=== PATIENT | female | born 1950 | race Caucasian/White ===

== ENCOUNTER 2018-04-10 07:47 | Outpatient (RCR) | payer MEDICARE, BC, SELFPAY ==
--- NOTE | 2018-04-10 09:51 | PTTR_ITS ---
DATE: 04/10/18 SUBJECTIVE: Radha is in good spirits today and states that she is feeling much better, minimally symptomatic now. She works out on a regular basis, being minimally fatigued at the end of the day.She is now doing her workouts at the end of the day, this gives her a second wind. She was helping her with some railings last week, and developed a blister on her (R) thumb. Stopped working after about 1/2 hour to 45 minutes due to fatigue. This was her only complaint. States that she has had minimal neck pain since her last visit and feels that her (L) shoulder is getting stronger. OBJECTIVE: Therapeutic procedures ([id number]). She came to rehab s/p spinal fusion and had some post op weakness with her supra /infraspinatus mechanism particularly her cervical movements. This is non irritable. Rotation of the (R) is close to 80- 85* on the (L) at 70-75*. Side bending is 45*-60* and non painful. AAROM in the supine position I can get close to 90* of rotation to the (R) and 80-85* on the (L) with some mild drawing throughout the (L) trap.Side bending is full. OA flexion is at 20*. Her shoulder movements are full and painless with movement. (R) thumb is at T8 level, and (L) thumb is 1 inch above. She has some weakness yet when loading the supraspinatus component of her (L) shoulder at +4 to - 5/5, and her infraspinatus is at 3/4 with her elbows tuck into her side. She can ER the (R) to a good 60* angle and the (L) 30-40*. This is also the same in the side lying position. She did not have pain when loading these two structures. Remaining musculature appears to be 5/5. Sensation is intact to light touch, and she has some mild increased tone throughout the cervical musculature on the (R) > (L) from PC 3-7. Direct treatment time: 20 minutes Total treatment time: 20minutes I hold off on her appt with Millicent Guerin PTA because she is minimally symptomatic. ASSESSMENT: Considerable improvement in Hanna symptoms compared to the beginning of PT. She is minimally symptomatic now and responding well to the dry needling last session. PLAN: Will have Radha continue with her HEP consisting of gentle stretching to cervical spine using a towel, and mulligan technique along with her strengthening exercises: not only for her shoulder girdle, but also for her core. She has a scheduled follow up appt in May and we will keep that just incase she should flare up between now and then. She can certainly give us a call if she is doing well at that point and cancel the appt.
== END 2018-05-09 23:59 | disposition home or self-care (01) ==
LOC: PT 07:47
PROVIDERS: PCP General Practice; Referring Provider Nurse Practitioner; Visit Provider Nurse Practitioner
DX: M54.12 Radiculopathy, cervical region (principal); M79.1 Myalgia; Z98.1 Arthrodesis status; M62.81 Muscle weakness (generalized)
CPT/HCPCS: 97110; 97140

== ENCOUNTER 2018-06-09 04:56 | Emergency (ER) | payer MEDICARE, BC, SELFPAY ==
[2018-06-09 04:59] VITALS: BP 142/84; PULSE 68; RESP 16; TEMP 36.4; O2SAT 98
[2018-06-09 05:11] LABS: Bilirubin Negative (Negative); Blood Trace-lysed (Negative); Clarity Sl Cloudy; Glucose Negative (Negative); Ketones Trace mg/dL (Negative); Leukocyte Esterase Negative (Negative); Nitrite Negative (Negative); Urobilinogen 0.2 EU/dL (Up TO 0.2); pH 5.5 (5-8)
[2018-06-09 05:17] LABS: Bacteria Rare HPF (Negative); C & S Indicated? No; Casts Negative LPF (Negative); Crystals Negative HPF (Negative); Epithelial Cells Many HPF (Negative); Mucus Negative (Negative); RBC 0-2 (0-2); WBC 0-2 HPF (0-5)
--- NOTE | 2018-06-09 05:30 | W.ED.GENAD ---
Discharge Plan Disposition Patient Disposition: HOME Condition: Improving Discharge Details Chief Complaint: FlankPain Clinical Impression: Abdominal pain, Lower back pain Primary Care Provider: Georges Valadez ED Provider: Savi Lema Home Meds and New Rx's Prescriptions: Continue pmugivsoxjmn-smjy-ynkvf acid [Daily Multiple] 1 EACH tablet 1 ea PO DAILY RF: 0 Discharge Instructions Instructions: Low Back Strain (ED), Abdominal Pain (ED) Additional Instructions: Alternate Tylenol and Motrin as needed and directed for pain. Apply heat to the affected area several times daily as needed. Follow-up with your primary care doctor in 1 week for reevaluation as needed. Return to the emergency department any worsening or new concerning symptoms such as fever, persistent vomiting or worsening pain. Discharge Data Discharge Physician: Savi Lema Medical Decision Making 68yo F w/ h/o appyelen w/ 06/18 RLQ/R flank pain since last night. Mowed lawn prior to onset but no known injury. Vitals within normal limits. Pt appears nontoxic. Abd soft, very minimally tender in RLQ. No CVAT. No focal deficits. No rash noted to abdomen or back. UA notes trace blood, 0-2 rbc, 0-2 wbc. Differential diagnoses includes renal stone, abdominal wall strain, obstruction. Doubt obstruction as she has had no vomiting and last normal BM yesterday, no tympanic BS and very minimally tender. Doubt renal stone as no significant blood on UA and she is not very uncomfortable appearing. Will place an IV, bolus IVF, labs, and CT renal stone, dose of toradol. 0550 -- Labs reviewed and unremarkable. 0610 -- Pt denies any relief after toradol. Will give a dose of morphine. 0635 -- CT reviewed and negative. Pt feels much better and is requesting to go home. States her pain is 2/10. Rexamination of abdomen is nontender. She appears nontoxic. mentioned pt ate a large steak and drank wine last night. Discussed that this could possibly be the cause of her pain if she is having pain with digesting food or with gas. States she has not had a bowel movement since before her pain started. Also discussed that it could be a muscle strain. Also discussed that this could be the early signs of something more acute and with limitation of CT without IV or p.o. contrast, if her symptoms persist or worsen, she should return immediately to the emergency department. CT was negative for an abdominal aortic aneurysm, free air or obstruction. HPI General Mode of arrival: ambulatory. Date/Time Provider Initiated Documentation: 06/09/18 05:08. Limitations to Documentation: no limitations. Information obtained by: patient. HPI Narrative: Pt is a 68yo F who presents to the ED w/ a c/o right lower quadrant abdominal pain and right lower back pain since 830pm last night. She describes the pain as constant, cramping and better and worse with nothing, currently 06/18. She had no relief with heat, tylenol or motrin. Last dose of motrin 5 hours ago. Pt admits to decreased appetite since onset of pain. States she is unsure if the pain radiates from her back to her abdomen or vice versa. She denies known injury but states she mowed the lawn prior to onset of symptoms. She also states she had a glass of wine prior to onset of pain. She denies fever, urinary symptoms, urinary or fecal incontinence, nausea, vomiting, diarrhea, leg pain or weakness, recent travel, or recent antibiotics. Past medical history: None Surgical history: Cervical disc repair, Appendectomy, Tonsillectomy, Cholecystectomy, Tubal ligation Social history: Occasional ETOH, denies tobacco or drug use Meds: MVI Allergies: none PCP: Dr. Valadez Related Data Home Medications Medication Instructions Recorded Confirmed ywuthjjgjkgx-bveu-rzpqa acid 1 ea PO DAILY 10/26/13 06/09/18 [Daily Multiple] Allergies Allergy/AdvReac Type Severity Reaction Status Date / Time No Known Allergies Allergy Unverified 06/09/18 05:03 General Stated Complaint: FlankPain CALLIE: 3 Review of Systems Review of Systems All systems reviewed & are unremarkable except as noted in HPI and below Constitutional Denies chills, Denies excessive sweating, Denies fatigue, Denies fever(s), Denies weakness and Denies weight loss Eyes Reports system reviewed and no additional complaints, except as docu and Denies blurry vision ENT Denies vertigo, Denies dizziness, Denies otalgia, Denies nasal congestion, Denies sore throat and Denies throat swelling Cardiovascular Denies chest pain, Denies syncope, Denies rapid heart rate and Denies dyspnea Respiratory Denies dyspnea Gastrointestinal Reports abdominal pain, Denies diarrhea and Denies vomiting Genitourinary Denies hematuria, Denies urinary frequency, Denies dysuria, Reports flank pain and Denies urinary urgency Musculoskeletal Reports back pain and Denies joint swelling Integumentary/Breasts Denies lesions and Denies rash Neurologic Denies behavioral changes, Denies confusion, Denies vertigo, Denies dizziness, Denies syncope and Denies weakness Psychiatric Denies behavioral changes, Denies confusion and Denies depression Endocrine Denies excessive sweating and Denies fatigue Hematologic/Lymphatic Denies easy bruising and Denies lymphadenopathy Allergic/Immunologic Denies throat swelling PFSH Family History Other Diabetes Heart disease Hyperlipidemia Personal history of malignant neoplasm Medical History Allergic asthma 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) History of hypertension Social History Smoking/Tobacco Use Status: Never Surgical History Appendectomy (~1970) Biopsy of breast Cholecystectomy Ligation of fallopian tube Tonsillectomy (~1960) Exam Const General: cooperative and healthy appearing Orientation: alert and awake HENMT Head: normal to inspection Ears: hearing grossly normal bilaterally and external ears normal General nose exam: external nose normal Face and sinus: normal facial exam Mouth: oral mucosae normal Eyes General: appearance normal, both eyes and all related structures Eyelids: eyelids normal Neck Neck: normal visual inspection Lymphatic: no lymphadenopathy noted Chest Chest: normal inspection of the chest Resp Effort & Inspection: normal respiratory effort and able to speak in complete sentences Auscultation: clear to auscultation bilaterally Cardio Rate: regular rate Rhythm: regular rhythm GI Inspection: normal to inspection and scar (large, linear in RUQ and RLQ) Palpation: soft, not firm, no guarding, no hepatosplenomegaly, no masses and tender (very minimally tender in RLQ. ) with no rebound tenderness Auscultation: normal bowel sounds Back/Spine/Pelvis Back: no CVA tenderness and other (R flank normal to inspection and nontender w/o rash, trauma.) Skin General skin exam: no rashes or lesions noted Neuro General: alert, awake and oriented x3 Cognition: normal cognition Speech: speech normal Gait: normal gait Motor: muscle tone normal throughout and strength 5/5 throughout Sensory Exam: no sensory deficits noted Extrem General: normal to inspection, full ROM and normal capillary refill Psych Appearance: grossly normal Mental Status: mental status grossly normal Speech and Movement: speech and movement normal Affect: normal affect Thought Process: normal Course Vital Signs Temperature 97.5 F L 06/09/18 04:59 Pulse 68 06/09/18 04:59 Respiratory Rate 16 06/09/18 04:59 Blood Pressure 142/84 H 06/09/18 04:59 Pulse Oximetry 98 06/09/18 04:59 Temperature 97.5 F L 06/09/18 04:59 Temperature Source Temporal Artery Scan 06/09/18 04:59 Pulse 68 06/09/18 04:59 Respiratory Rate 16 06/09/18 04:59 Respiratory Effort 06/09/18 04:59 Blood Pressure 142/84 H 06/09/18 04:59 Pulse Oximetry 98 06/09/18 04:59 Oxygen Delivery Method Room Air 06/09/18 04:59 Oxygen Flow Rate 0 06/09/18 04:59 Pain Level 6 06/09/18 05:05 Lab/Test Results Lab/Test Results: Laboratory Tests Range/Units 06/09/18 05:06 Urine Color (Yellow) Yellow Urine Clarity Sl cloudy Urine pH (5-8) 5.5 Ur Specific [place] (1.005-1.025) 1.020 Urine Protein (Negative) mg/dL Negative Urine Ketones (Negative) mg/dL Trace H Urine Blood (Negative) Trace-lysed H Urine Nitrite (Negative) Negative Urine Bilirubin (Negative) Negative Urine Urobilinogen (Up TO 0.2) EU/dL 0.2 Ur Leukocyte Esterase (Negative) Negative Urine RBC (0-2) 0-2 Urine WBC (0-5) HPF 0-2 Ur Epithelial Cells (Negative) HPF Many Urine Crystals (Negative) HPF Negative Urine Bacteria (Negative) HPF Rare Urine Casts (Negative) LPF Negative Urine Mucus (Negative) Negative Ur Culture Indicated? No Urine Glucose (Negative) mg/dL Negative
[2018-06-09] MEDS: Normal Saline 250 ML 500 ML IV (05:36)
[2018-06-09] MEDS: Ketorolac 30 MG/ML VIAL IVP (05:37)
[2018-06-09 05:38] LABS: Mean Corp. HGB Concentration 34.1 g/dL (32.0-36.0); Mean Corpuscular Hemoglobin 31.3 pg (27.0-33.0); Mean Corpuscular Volume 91.7 fL (80-95); Mean Platelet Volume 9.1 fL (8.0-11.0); Platelet Count 345 x1000/uL (130-400); RBC 4.47 m/cumm (4.00-5.20); RBC Distribution Width 12.7 % (11.7-14.6); White Blood Cell Count 8.75 k/cumm (4.4-10.8)
--- NOTE | 2018-06-09 05:43 | ED.GENADUL_ITS ---
Discharge Plan Disposition Patient Disposition: HOME Condition: Improving Discharge Details Chief Complaint: FlankPain Clinical Impression: Abdominal pain, Lower back pain Primary Care Provider: Georges Valadez ED Provider: Savi Lema Home Meds and New Rx's Prescriptions: Continue vgmczzkyeabg-lfij-mlaco acid [Daily Multiple] 1 EACH tablet 1 ea PO DAILY RF: 0 Discharge Instructions Instructions: Low Back Strain (ED), Abdominal Pain (ED) Additional Instructions: Alternate Tylenol and Motrin as needed and directed for pain. Apply heat to the affected area several times daily as needed. Follow-up with your primary care doctor in 1 week for reevaluation as needed. Return to the emergency department any worsening or new concerning symptoms such as fever, persistent vomiting or worsening pain. Discharge Data Discharge Physician: Savi Lema Medical Decision Making 68yo F w/ h/o appyelen w/ 06/18 RLQ/R flank pain since last night. Mowed lawn prior to onset but no known injury. Vitals within normal limits. Pt appears nontoxic. Abd soft, very minimally tender in RLQ. No CVAT. No focal deficits. No rash noted to abdomen or back. UA notes trace blood, 0-2 rbc, 0-2 wbc. Differential diagnoses includes renal stone, abdominal wall strain, obstruction. Doubt obstruction as she has had no vomiting and last normal BM yesterday, no tympanic BS and very minimally tender. Doubt renal stone as no significant blood on UA and she is not very uncomfortable appearing. Will place an IV, bolus IVF, labs, and CT renal stone, dose of toradol. 0550 -- Labs reviewed and unremarkable. 0610 -- Pt denies any relief after toradol. Will give a dose of morphine. 0635 -- CT reviewed and negative. Pt feels much better and is requesting to go home. States her pain is 2/10. Rexamination of abdomen is nontender. She appears nontoxic. mentioned pt ate a large steak and drank wine last night. Discussed that this could possibly be the cause of her pain if she is having pain with digesting food or with gas. States she has not had a bowel movement since before her pain started. Also discussed that it could be a muscle strain. Also discussed that this could be the early signs of something more acute and with limitation of CT without IV or p.o. contrast, if her symptoms persist or worsen, she should return immediately to the emergency department. CT was negative for an abdominal aortic aneurysm, free air or obstruction. HPI General Mode of arrival: ambulatory . Date/Time Provider Initiated Documentation: 06/09/18 05:08 . Limitations to Documentation: no limitations . Information obtained by: patient . HPI Narrative: Pt is a 68yo F who presents to the ED w/ a c/o right lower quadrant abdominal pain and right lower back pain since 830pm last night. She describes the pain as constant, cramping and better and worse with nothing, currently 06/18. She had no relief with heat, tylenol or motrin. Last dose of motrin 5 hours ago. Pt admits to decreased appetite since onset of pain. States she is unsure if the pain radiates from her back to her abdomen or vice versa. She denies known injury but states she mowed the lawn prior to onset of symptoms. She also states she had a glass of wine prior to onset of pain. She denies fever, urinary symptoms, urinary or fecal incontinence, nausea, vomiting , diarrhea, leg pain or weakness, recent travel, or recent antibiotics. Past medical history: None Surgical history: Cervical disc repair, Appendectomy, Tonsillectomy, Cholecystectomy, Tubal ligation Social history: Occasional ETOH, denies tobacco or drug use Meds: MVI Allergies: none PCP: Dr. Valadez Related Data Home Medications Medication Instructions Recorded Confirmed afuuchmeszey-kmuj-aowsx acid 1 ea PO DAILY 10/26/13 06/09/18 [Daily Multiple] Allergies Allergy/AdvReac Type Severity Reaction Status Date / Time No Known Allergies Allergy Unverified 06/09/18 05:03 General Stated Complaint: FlankPain CALLIE: 3 Review of Systems Review of Systems All systems reviewed & are unremarkable except as noted in HPI and below Constitutional Denies chills, Denies excessive sweating, Denies fatigue, Denies fever(s), Denies weakness and Denies weight loss Eyes Reports system reviewed and no additional complaints, except as docu and Denies blurry vision ENT Denies vertigo, Denies dizziness, Denies otalgia, Denies nasal congestion, Denies sore throat and Denies throat swelling Cardiovascular Denies chest pain, Denies syncope, Denies rapid heart rate and Denies dyspnea Respiratory Denies dyspnea Gastrointestinal Reports abdominal pain, Denies diarrhea and Denies vomiting Genitourinary Denies hematuria, Denies urinary frequency, Denies dysuria, Reports flank pain and Denies urinary urgency Musculoskeletal Reports back pain and Denies joint swelling Integumentary/Breasts Denies lesions and Denies rash Neurologic Denies behavioral changes, Denies confusion, Denies vertigo, Denies dizziness, Denies syncope and Denies weakness Psychiatric Denies behavioral changes, Denies confusion and Denies depression Endocrine Denies excessive sweating and Denies fatigue Hematologic/Lymphatic Denies easy bruising and Denies lymphadenopathy Allergic/Immunologic Denies throat swelling PFSH Family History Other Diabetes Heart disease Hyperlipidemia Personal history of malignant neoplasm Medical History Allergic asthma 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) History of hypertension Social History Smoking/Tobacco Use Status: Never Surgical History Appendectomy (~1970) Biopsy of breast Cholecystectomy Ligation of fallopian tube Tonsillectomy (~1960) Exam Const General: cooperative and healthy appearing Orientation: alert and awake HENMT Head: normal to inspection Ears: hearing grossly normal bilaterally and external ears normal General nose exam: external nose normal Face and sinus: normal facial exam Mouth: oral mucosae normal Eyes General: appearance normal, both eyes and all related structures Eyelids: eyelids normal Neck Neck: normal visual inspection Lymphatic: no lymphadenopathy noted Chest Chest: normal inspection of the chest Resp Effort & Inspection: normal respiratory effort and able to speak in complete sentences Auscultation: clear to auscultation bilaterally Cardio Rate: regular rate Rhythm: regular rhythm GI Inspection: normal to inspection and scar (large, linear in RUQ and RLQ) Palpation: soft, not firm, no guarding, no hepatosplenomegaly, no masses and tender (very minimally tender in RLQ. ) with no rebound tenderness Auscultation: normal bowel sounds Back/Spine/Pelvis Back: no CVA tenderness and other (R flank normal to inspection and nontender w/ o rash, trauma.) Skin General skin exam: no rashes or lesions noted Neuro General: alert, awake and oriented x3 Cognition: normal cognition Speech: speech normal Gait: normal gait Motor: muscle tone normal throughout and strength 5/5 throughout Sensory Exam: no sensory deficits noted Extrem General: normal to inspection, full ROM and normal capillary refill Psych Appearance: grossly normal Mental Status: mental status grossly normal Speech and Movement: speech and movement normal Affect: normal affect Thought Process: normal Course Vital Signs Temperature 97.5 F L 06/09/18 04:59 Pulse 68 06/09/18 04:59 Respiratory Rate 16 06/09/18 04:59 Blood Pressure 142/84 H 06/09/18 04:59 Pulse Oximetry 98 06/09/18 04:59 Temperature 97.5 F L 06/09/18 04:59 Temperature Source Temporal Artery Scan 06/09/18 04:59 Pulse 68 06/09/18 04:59 Respiratory Rate 16 06/09/18 04:59 Respiratory Effort 06/09/18 04:59 Blood Pressure 142/84 H 06/09/18 04:59 Pulse Oximetry 98 06/09/18 04:59 Oxygen Delivery Method Room Air 06/09/18 04:59 Oxygen Flow Rate 0 06/09/18 04:59 Pain Level 6 06/09/18 05:05 Lab/Test Results Lab/Test Results: Laboratory Tests Range/Units 06/09/18 05:06 Urine Color (Yellow) Yellow Urine Clarity Sl cloudy Urine pH (5-8) 5.5 Ur Specific [place] (1.005-1.025) 1.020 Urine Protein (Negative) mg/dL Negative Urine Ketones (Negative) mg/dL Trace H Urine Blood (Negative) Trace-lysed H Urine Nitrite (Negative) Negative Urine Bilirubin (Negative) Negative Urine Urobilinogen (Up TO 0.2) EU/dL 0.2 Ur Leukocyte Esterase (Negative) Negative Urine RBC (0-2) 0-2 Urine WBC (0-5) HPF 0-2 Ur Epithelial Cells (Negative) HPF Many Urine Crystals (Negative) HPF Negative Urine Bacteria (Negative) HPF Rare Urine Casts (Negative) LPF Negative Urine Mucus (Negative) Negative Ur Culture Indicated? No Urine Glucose (Negative) mg/dL Negative
[2018-06-09 05:56] LABS: ALT 30 U/L (12-78); AST 15 U/L (15-37); Albumin 3.7 g/dL (3.4-5.0); Alkaline Phosphatase 79 U/L (46-116); BUN 23 mg/dL (7-18); Bilirubin, Total 0.3 mg/dL (0.2-1.0); CREATININE 0.94 mg/dL (0.55-1.02); Calcium 8.7 mg/dL (8.5-10.1); Chloride 103 mmol/L (98-107); Estimated GFR 59.58 (mL/min/1.73m2); Glucose 106 mg/dL (70-100); Lipase 199 U/L (73-393); Potassium 4.2 mmol/L (3.5-5.1); Sodium 139 mmol/L (136-145); Total Protein 7.2 g/dL (6.4-8.2)
[2018-06-09] MEDS: MORPHine 10 MG/ML VIAL 4 MG IVP (06:10)
--- NOTE | 2018-06-09 06:37 | DI.VRAD_ITS ---
EXAM: CT Abdomen and Pelvis Without Intravenous Contrast EXAM DATE/TIME: 06/09/2018 5:29 AM CLINICAL HISTORY: 68 years old, female; Pain; Abdominal pain; Localized; Right lower quadrant (rlq); Prior surgery; Surgery date: 6+ months; Surgery type: Gallbladder and appendix removed 40+ years ago. ; Patient HX: Rlq pain since last night, no HX of kidney stones. TECHNIQUE: Axial computed tomography images of the abdomen and pelvis without intravenous contrast. COMPARISON: CT UPPER ABD WITH CONTRAST (P) 06/11/2016 8:48 AM FINDINGS: Lower thorax: All CT scans at this facility use at least one of these dose optimization techniques: automated exposure control; mA and/or kV adjustment per patient size (includes targeted exams where dose is matched to clinical indication); or iterative reconstruction. ABDOMEN: Liver: Normal. No mass. Gallbladder and bile ducts: Cholecystectomy. No ductal dilatation. Pancreas: Normal. No ductal dilation. Spleen: Normal. No splenomegaly. Adrenals: Normal. No mass. Kidneys and ureters: Normal. No hydronephrosis. Stomach and bowel: Normal. No obstruction. No mucosal thickening. Appendix: Appendectomy. PELVIS: Bladder: Unremarkable as visualized. Reproductive: Unremarkable as visualized. ABDOMEN and PELVIS: Intraperitoneal space: Normal. No free air. No significant fluid collection. Bones/joints: Degenerative disc disease of the lumbar spine. No fracture. Soft tissues: Tiny umbilical hernia containing fat. Vasculature: Normal. No abdominal aortic aneurysm. Lymph nodes: Normal. No enlarged lymph nodes. Other findings: Coronal and sagittal reformatted images were created and reviewed. IMPRESSION: No acute findings. Dictated and Authenticated by: Josh Solis MD. Ordering:SERAFIN MALONEY MD
[2018-06-09 07:00] VITALS: BP 148/76; PULSE 78; RESP 18; TEMP 36.6; O2SAT 99
--- NOTE | 2018-06-09 08:55 | DI.CT_ITS ---
SYMPTOMS/DIAGNOSIS: RIGHT FLANK PAIN, RIGHT LOWER QUADRANT ABDOMINAL PAIN, ? STONE ABDOMINAL AND PELVIC CT: CT examination of the abdomen and pelvis was performed without contrast administration. Images obtained through the lung bases are unremarkable. The liver and spleen appear normal. Gallbladder has been surgically removed. No biliary dilatation seen. The pancreas appears intact. Abdominal aorta is of normal diameter. No significant abdominal wall hernia seen. No abdominal or pelvic adenopathy identified. Appendix not specifically visualized, but there is no evidence of appendicitis or diverticulitis. Adrenals appear normal bilaterally. The kidneys appear normal. No evidence of urinary tract calcification or obstruction. Urinary bladder is essentially empty. There is an apparent right ovarian mass measuring about 2 cm in diameter, which is predominantly of low attenuation. Complex mass not excluded and pelvic ultrasound requested for further evaluation. CONCLUSION: 1. No evidence of urinary tract calcification or obstruction. 2. Incidental 22 mm right ovarian mass, which is indeterminate; no previous examination is available for comparison. Correlation with pelvic ultrasound recommended.
--- NOTE | 2018-06-11 08:52 | PDOC.ERCMPRO ---
Care Management Progress Note 06/11/18-Pt seen for abdominal flank pain on 06/09/[address] Clare Lema. F/U request faxed to Pt's PCP, Dr. Mariana Valadez.
== END 2018-06-09 07:00 | disposition home or self-care (01) ==
PROVIDERS: Emergency Provider Physician Assistant; PCP General Practice
DX: R10.31 Right lower quadrant pain (principal); M54.5 Low back pain; I10 Essential (primary) hypertension
CPT/HCPCS: 36415; 80053; 83690; 85027; 96374; 96375; 99284; 74176; 81003; 81015; 99285; J1885; J2270

== ENCOUNTER 2018-07-02 17:12 | Outpatient (REF) | payer MEDICARE, BC, SELFPAY ==
--- NOTE | 2018-07-02 16:30 | PAPFT_PTH ---
PATIENT: Radha Chowdhury LOC: [facility] U#:[id number] AGE/SX: 68/F ROOM: RE07/02/[address]: Estefani Bautista MD : [id number] BED: DIS: 07/02/2018 SPEC #: [id number] RECD: 07/03/18 13:17 STATUS: HELIO REQ #: [id number] DELONTE: 07/02/18 16:[address]: Estefani Bautista DEPT: [facility] Cytology RECD BY: Sara Evans ENTERED: 07/03/18 13:18 SP TYPE: PAPFT OTHR DR: Georges Valadez Tissues: 1 - CX/ENDOCX FOR PAP SMEARS Procedures: PAP THIN PREP/UVM Screening HPV DNA PROBE Comments: [id number]
== END 2018-07-02 17:32 ==
LOC: LBN 17:12
PROVIDERS: PCP General Practice; Visit Provider Obstetrics & Gynecology
DX: Z12.4 Encounter for screening for malignant neoplasm of cervix (principal); Z11.51 Encounter for screening for human papillomavirus (HPV)
CPT/HCPCS: 88142; 87624

== ENCOUNTER 2018-07-28 13:46 | Outpatient (CLI) | payer MEDICARE, BC, SELFPAY ==
[2018-07-28 15:18] LABS: ESR 26 MM/HR (0-30)
[2018-07-29 10:00] LABS: Rheumatoid Factor <8 IU/mL (<12.5)
[2018-07-29 14:06] LABS: ANA Interpretation Positive (NEGAT); ANA Titer Pattern 1:160 Speckled
== END 2018-07-28 14:06 ==
PROVIDERS: PCP General Practice; Visit Provider General Practice
DX: M19.90 Unspecified osteoarthritis, unspecified site (principal)
CPT/HCPCS: 36415; 85652; 86038; 86431

== ENCOUNTER 2018-08-06 00:17 | Outpatient (CLI) | payer MEDICARE, BC, SELFPAY ==
--- NOTE | 2018-08-06 12:50 | DI.US_ITS ---
SYMPTOMS/DIAGNOSIS: 2.2 cm right ovarian mass on CT 06/09/18, Z01.419, N83.9 PELVIC ULTRASOUND: Comparison is made with CT of the abdomen and pelvis dated . Transabdominal and transvaginal exams were performed. The uterus measures 5.6 x 2.2 x 3.5 cm. The endometrial stripe measures 4 mm which is likely an overestimation. There is a simple appearing cyst on the right ovary measuring 2.2 cm in greatest dimension. The left ovary was unable to be visualized but appeared normal on the previous CT. No free fluid or hydronephrosis is seen. IMPRESSION: 2.2 cm simple appearing cyst of the right ovary.
== END 2018-08-06 00:37 ==
PROVIDERS: PCP General Practice; Visit Provider Obstetrics & Gynecology
DX: N83.9 Noninflammatory disorder of ovary, fallopian tube and broad ligament, unspecified (principal); N83.291 Other ovarian cyst, right side
CPT/HCPCS: 76830; 76856

== ENCOUNTER 2018-10-01 01:35 | Outpatient (CLI) | payer MEDICARE, BC, SELFPAY ==
--- NOTE | 2018-10-01 14:56 | DI.US_ITS ---
SYMPTOM/DIAGNOSIS: F/U RT OVARIAN CYST, N83.201 PELVIC ULTRASOUND: The uterus is 5.8 cm. in length, 2.5 cm. in height and 3.4 cm. in width with an endometrial stripe thickness of 3.5 mm. The right ovary measures 2.3 by 1.9 by 2.1 cm. The left ovary was not seen. The right ovary contains a 2.1 by 1.8 by 2.1 cm., avascular, anechoic region which on a prior examination measured 2.2 by 1.8 by 1.8 cm. The prior study was performed 08/06/18. SUMMARY: There has been no apparent change in the status of the right ovary where a 2.1 by 1.8 by 2.1 cm., avascular, anechoic cyst is seen. If there is any further specific clinical question regarding the possibility of a cystic lesion in this patient, then correlation with an MRI could be considered. Incidentally the kidneys are unremarkable. Left kidney measures 10.8 cm. and the right kidney measures 9.8 cm. There is no evidence of pelvic free fluid.
== END 2018-10-01 01:55 ==
PROVIDERS: PCP General Practice; Visit Provider Obstetrics & Gynecology
DX: N83.201 Unspecified ovarian cyst, right side (principal)
CPT/HCPCS: 76830; 76856

== ENCOUNTER 2019-10-02 13:59 | Outpatient (REF) | payer MEDICARE, BC, SELFPAY ==
[2019-10-02 20:01] LABS: Iron 93 ug/dL (50-170)
[2019-10-02 20:03] LABS: HCT 42.1 % (36.0-46.0); HGB 13.9 g/dL (12.0-15.5); Mean Corpuscular Hemoglobin 30.3 pg (27.0-33.0); Mean Corpuscular Volume 91.9 fL (80-95); Mean Platelet Volume 10.1 fL (8.0-11.0); Platelet Count 418 x1000/uL (130-400); RBC 4.58 m/cumm (4.00-5.20); White Blood Cell Count 9.32 k/cumm (4.4-10.8)
[2019-10-02 20:14] LABS: ALT 26 U/L (14-59); AST 16 U/L (15-37); Albumin 4.1 g/dL (3.4-5.0); Alkaline Phosphatase 74 U/L (46-116); BUN 15 mg/dL (7-18); Bilirubin, Total 0.4 mg/dL (0.2-1.0); CREATININE 1.06 mg/dL (0.55-1.02); Calcium 9.6 mg/dL (8.5-10.1); Calculated LDL 143 mg/dL; Chloride 102 mmol/L (98-107); Cholesterol 256 mg/dL (<200); Estimated GFR 51.71 (mL/min/1.73m2); Ferritin 99 ng/mL (8-252); Glucose 95 mg/dL (74-106); HDL Cholesterol 74 mg/dL (40-60); Potassium 4.2 mmol/L (3.5-5.1); Sodium 138 mmol/L (136-145); TSH (W/Ref FT4) 1.66 uIU/mL (0.36-3.74); Total Protein 7.5 g/dL (6.4-8.2); Triglyceride 196 mg/dL (<150)
== END 2019-10-02 14:19 ==
LOC: NCHCN 13:59
PROVIDERS: PCP Nurse Practitioner Family; Visit Provider Nurse Practitioner Family
DX: E78.5 Hyperlipidemia, unspecified (principal); I10 Essential (primary) hypertension; R53.83 Other fatigue; R63.5 Abnormal weight gain; G25.81 Restless legs syndrome
CPT/HCPCS: 80053; 80061; 85027; 82728; 83540; 84443

== ENCOUNTER 2020-07-18 00:40 | Outpatient (CLI) | payer MEDICARE, BC, SELFPAY ==
--- NOTE | 2020-07-18 06:45 | DI.US_ITS ---
EXAM: US PELVIS TRANSVAGINAL CLINICAL HISTORY: hx r ovarian mass,RT OVARIAN CYST,N83.201 TECHNIQUE: Ultrasound performed using standard protocol. COMPARISON: US US PELVIS TRANSVAGINAL from 10/01/2018 FINDINGS: Pelvic ultrasound was performed transabdominally and transvaginally. Uterus is unremarkable in [facility] and measures 67 x 26 x 37 millimeters. The endometrial stripe is about 2 millimeters thick and appears homogeneous. Portions of the uterus are nonvisualized. Left ovary is nonvisualized. Right ovary is 31 x 24 x 22 millimeters in diameter. There is a 22 mil limeter in diameter avascular simple cyst of the right ovary. This is essentially unchanged from pre vious examination of September 2018. IMPRESSION: Stable right ovarian cyst. No other significant findings. Left ovary nonvisualized. DATA REPOSITORY:
== END 2020-07-18 01:00 ==
PROVIDERS: PCP Nurse Practitioner Family; Visit Provider Nurse Practitioner Women's Health
DX: N83.201 Unspecified ovarian cyst, right side (principal)
CPT/HCPCS: 76830; 76856

== ENCOUNTER 2020-11-21 14:06 | Outpatient (REF) | payer MEDICARE, BC, SELFPAY ==
[2020-11-21 16:46] LABS: HCT 45.1 % (36.0-46.0); HGB 14.6 g/dL (11.2-15.7); MCHC 32.4 % (32.0-36.0); MCV 92.8 fL (80-95); MPV 10.2 fL (8.0-11.0); Platelet Count 432 10^3/uL (130-400); RBC 4.86 10^6/uL (3.93-5.22); RDW 12.5 % (11.7-14.6); WBC 8.38 10^3/uL (4.4-10.8)
[2020-11-21 17:28] LABS: ALT 28 U/L (14-59); AST 13 U/L (15-37); Albumin 4.4 g/dL (3.4-5.0); Alkaline Phosphatase 84 U/L (46-116); Anion Gap 9.4 mmol/L (3-11); BUN 25 mg/dL (7-18); Bilirubin, Total 0.3 mg/dL (0.2-1.0); CO2 30.6 mmol/L (21.0-32.0); CREATININE 1.1 mg/dL (0.55-1.02); Calcium 9.7 mg/dL (8.5-10.1); Chloride 101 mmol/L (98-107); Estimated GFR 49.39 (mL/min/1.73m2); Ferritin 128 ng/mL (8-252); Glucose 76 mg/dL (74-106); Potassium 4.2 mmol/L (3.5-5.1); Sodium 141 mmol/L (136-145)
[2020-11-22 10:48] LABS: HIV-1/2 Ag & Ab Screen Negative (Negative)
[2020-11-22 10:55] LABS: Hepatitis C Ab w Rflx HCV PCR Negative (Negative)
[2020-12-21 09:47] LABS: Fungus Smear No Fungi Seen
== END 2020-11-21 14:07 | disposition home or self-care (01) ==
LOC: NCHCN 14:06
PROVIDERS: PCP Nurse Practitioner Family; Visit Provider Nurse Practitioner Family
DX: G25.81 Restless legs syndrome (principal); I10 Essential (primary) hypertension; R79.89 Other specified abnormal findings of blood chemistry; L03.011 Cellulitis of right finger; Z11.4 Encounter for screening for human immunodeficiency virus [HIV]; Z11.59 Encounter for screening for other viral diseases
CPT/HCPCS: 80053; 85027; 86803; 87101; 87206; 87389; 82728

== ENCOUNTER → 2021-10-06 14:24 | Outpatient (BNVA) | payer MEDICARE, BC, SELFPAY | PROVIDERS: PCP Physician Assistant; Referring Provider Physician Assistant; Visit Provider Physical Therapy Assistant | DX: Z12.11 Encounter for screening for malignant neoplasm of colon (principal); Z80.0 Family history of malignant neoplasm of digestive organs ==

== ENCOUNTER 2021-10-20 02:00 | Outpatient (CLI) | payer MEDICARE, BC, SELFPAY ==
[2021-10-20 16:52] LABS: COVID-19 PCR Negative (Negative)
[2021-10-21 11:43] LABS: Source Nasal/Nares
== END 2021-10-20 02:01 | disposition home or self-care (01) ==
LOC: LBO 02:01
PROVIDERS: PCP Physician Assistant; Visit Provider Surgery
DX: Z20.822 Contact with and (suspected) exposure to COVID-19 (principal); Z01.818 Encounter for other preprocedural examination
CPT/HCPCS: 87635

== ENCOUNTER 2021-10-23 06:19 | Day surgery (SDC) | payer MEDICARE, BC, SELFPAY ==
[2021-10-23 06:27] VITALS: BP 150/78; PULSE 69; RESP 16; TEMP 36.4; O2SAT 99
--- NOTE | 2021-10-23 06:39 | COLE_ITS ---
Colonoscopy Report Date of procedure: 10/23/21 Pre-op diagnosis general: Colon Cancer Screening Post-op diagnosis procedure note: other (polyp and internal hemorrhoids) Procedure: Colonoscopy with polypectomy Surgeon: Elidia Vivar Anesthesia Type: General:No Airway (Arik Davila CRNA) Pathology: other (AScending polyp) Complications: None Disposition: same day Indications: ?The patient is here for Colonoscopy pre-op. She has a distant family history of colon cancer in her maternal aunt. She has not had any bowel habit changes. -Discussed colonoscopy bowel prep as well as the procedure. Discussed possible complications of the procedure to include bleeding, pain, perforation, missed small lesion/polyp, sore throat, aspiration and adverse reaction to the medications. Questions were answered to patient?s satisfaction. No guarantees were implied or given.? Prep: Miralax/Dulcolax Procedure Start Time: 07:32 Procedure End Time: 07:58 Retraction Time: 16 minutes Findings: One small sessile polyp Grade 1 internal hemorrhoids Procedure Description: After informed consent was obtained the patient was taken to the procedure room and placed in a left decubitous position. Monitors were applied and a time out was done. The patients name, date of , procedure, allergies to medicat ions and metal in their body was reviewed. The patient was then sedated. Once sedated and comfortable a rectal exam was done. External exam was normal. Internal exam revealed a normal sphincter tone and no palpable masses. The scope was then introduced and retro-flexed. Grade 1 internal hemorrhoids were identified on retroflexion. No polyps or masses were identified on retro- flexion. The scope was then advanced to the cecum without difficulty. The ileocecal vlave and appendiceal orifice were identified. The prep was good. The scope was then slowly retracted over 16 minutes back into the rectum. Polyps were removed with cold forceps in the ascending colon. There was no diverticulosis noted. The scope was removed and the patient was woken up and taken back to Same day surgery in stable condition. The patient tolerated the procedure well and there were no immediate complications. Follow up: Follow up to be determined once I have the pathology results.
--- NOTE | 2021-10-23 06:41 | PDOC.DSDIS_ITS ---
Discharge Plan Disposition Patient Disposition: HOME Condition: Good Discharge Details Reason For Visit: Colonoscopy Attending Provider: Elidia Vivar Primary Care Provider: Kedar Rankin Home Meds and New Rx's Prescriptions: Continued calcium carbonate-vitamin D3 [Calcium 600 with Vitamin D3] 600 mg(1,500mg) - 500 unit capsule 0RF lisinopril-hydrochlorothiazide 10-12.5 mg tablet 1 tab PO DAILY 0RF sertraline 25 mg tablet 25 mg PO DAILY 0RF Daily Multiple 1 EACH tablet 1 ea PO DAILY 0RF ropinirole 1 mg tablet 1 mg PO DAILY 0RF black pepper-tumeric capsule 1 tab PO DAILY 0RF albuterol sulfate [ProAir HFA] 90 mcg/actuation HFA aerosol inhaler 2 puff inhalation Q6H PRN0RF Discontinued polyethylene glycol 3350 17 gram/dose powder 238 g PO ONCE Qty: 238 0RF Rx Instructions: take per colonoscopy instructions bisacodyl [Dulcolax (bisacodyl)] 5 mg tablet,delayed release (DR/EC) 5 mg PO ONCE Qty: 4 0RF Rx Instructions: take per colonoscopy instructions Discharge Instructions Instructions: Hemorrhoids (DC) Additional Instructions: Findings: One small polyps Internal hemorrhoids Follow up: Will depend on the pathology results. I will send a letter in 10 to 14 days Please call if you develop: fevers >101.5 Nausea or Vomiting Abdominal pain that is not transient Rectal bleeding that is more then a tbsp A hard abdomen and inability to pass gas DAY SURGERY UNIT POST ENDOSCOPY INSTRUCTIONS Instructions for everyone who is given Anesthesia: For your safety, please do the following for the next 24 Hours: a. Do not drive or operate dangerous equipment b. Do not drink alcohol beverages or use any recreational drugs for the first 24 hours or while taking pain medications. The medications in your body may have a reaction that can be dangerous. c. Do not make any important decisions or sign any important papers 1. Generally there are no restrictions on your activity after a day or so has gone by, but you may feel a bit fatigued for a few days. 2. After you arrive home you may have a light meal and return to a normal diet as you can tolerate it without feeling sick to your stomach. 3. After surgery, you may feel pain or discomfort. This should be only transient, but if it persists please contact your doctor. 4. If there are any questions regarding the findings of your procedure, please feel free to contact your doctor. 6. If you are unable to contact your doctor with a problem, contact the hospital at [phone]. 7. Continue all your regular medications unless directed otherwise. I understand the above instructions and have no questions. Signature of Patient or Responsible Adult Escort Date/Time Name of Responsible Adult Escort Signature of Nurse Date/Time Activity:: Activity as Tolerated Diet:: As Tolerated Discharge Orders Discharge Orders: Discharge Order (Routine); Ordered 10/23/21 Ordered By: Elidia Vivar
[2021-10-23] MEDS: Lactated Ringers 1,000 ML 80 ML IV (06:51)
--- NOTE | 2021-10-23 07:01 | W.ANESPRE ---
General Info Date of Service Date Performed: 10/23/21 Height: 5 ft 2 in Weight: 74.4 kg Body Mass Index (BMI): 29.9 Surgical Procedure: Operation Date: 10/23/21 07:35 Proposed Procedure Side Surgeon p Alicia Vivar MD Meds Allergies and Home Medications Allergies Allergy/AdvReac Type Severity Reaction Status Date / Time No Known Allergies Allergy Unverified 10/23/21 06:37 Home Medication Medication Instructions Recorded multivitamin-ferrous 1 ea PO DAILY 10/26/13 fumarate-folic acid 18 mg-400 mcg tablet (Daily Multiple) calcium carbonate 600 mg-vitamin cap 07/02/18 D3 12.5 mcg (500 unit) capsule (Calcium 600 with Vitamin D3) albuterol sulfate 90 mcg/actuation 2 puff INHALATION Q6H PRN 03/03/21 aerosol inhaler (ProAir HFA) black pepper-tumeric 1 tab PO DAILY 03/03/21 ropinirole 1 mg tablet 1 mg PO DAILY 03/03/21 bisacodyl 5 mg tablet,delayed 5 mg PO ONCE #4 tab 10/06/21 release (Dulcolax (bisacodyl)) lisinopril 10 1 tab PO DAILY 10/06/21 mg-hydrochlorothiazide 12.5 mg tablet polyethylene glycol 3350 17 238 g PO ONCE #238 g 10/06/21 gram/dose oral powder sertraline 25 mg tablet 25 mg PO DAILY 10/06/21 Current Visit Medications: Current Medications Generic Name Dose Route Start Last Admin Trade Name Freq PRN Reason Stop Dose Admin Hyoscyamine Sulfate 0.125 mg 10/23/21 06:42 Hyoscyamine 0.125 Mg Sl/Oral/Chew SL DIRECTED PRN Ringer's Solution 1,000 mls @ 80 mls/hr 10/23/21 06:00 10/23/21 06:51 IV 11/06/21 23:59 80 mls/hr INFUSION JOHN Administration IV Miscellaneous Supplies 1 each 10/23/21 06:00 Iv Access IV 11/06/21 23:59 DIRECTED JOHN Ondansetron HCl 4 mg 10/23/21 06:42 Ondansetron 4 Mg/2 Ml Vial IVP Q4H PRN PRN Nausea / Vomiting Sodium Chloride 0 ml 10/23/21 06:00 Normal Saline Flush 10 Ml Syr IV 11/06/21 23:59 PRN PRN Sodium Chloride 0 ml 10/23/21 06:00 Normal Saline 10 Ml Vial IJ 11/06/21 23:59 DIRECTED PRN Sterile Water 0 ml 10/23/21 06:00 Water,Injection,Sterile 10 Ml Vial IJ 11/06/21 23:59 DIRECTED PRN PFSH Active Problems Active Problems: Problem Status Onset Code Encounter for routine gynecological examination 10/28/14 Z01.419 Cystocele Medical History Medical History Allergic asthma Asthma 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) Depression History of hypertension History of malignant neoplasm of breast History of pericarditis Hyperlipidemia Hypertension Left bundle branch block Radiculopathy Restless leg syndrome Surgical History Surgical History Appendectomy (~1970) Biopsy of breast L breast benign 1994 Cholecystectomy 1979 secondary to benign tumor no stones . History of cataract surgery History of cholecystectomy History of colonoscopy Ligation of fallopian tube 1977 S/P cervical spinal fusion S/P coronary angiogram 10 years ago per patient Tonsillectomy (~1960) Tobacco Smoking/Tobacco Use Status: Never Alcohol Alcohol Intake: current Alcohol intake frequency: a few times a week Alcohol type: wine Substance Use Substance use: Never Substance use type: does not use Vital Signs and Lab Results Vital Signs Most Recent Vital Signs in EMR: Most Recent Vital Signs Temp Pulse Resp BP Pulse Ox 36.4 C L 69 16 150/78 H 99 10/23/21 06:27 10/23/21 06:27 10/23/21 06:27 10/23/21 06:27 10/23/21 06:27 Lab Results Blood Type / Crossmatch: No Data to Display Complete Blood Count: No Data to Display Complete Metabolic Panel: No Data to Display Liver Function Panel: No Data to Display Coagulation Panel: No Data to Display Cardiac Panel: No Data to Display Arterial Blood Gas: No Data to Display Venous Blood Gas: No Data to Display Pancreas Panel: No Data to Display Thyroid Panel: No Data to Display Infectious Disease: Coronavirus (COVID-19)(PCR) Negative (Negative) 10/20/21 10:59 10/20/21 Coronavirus 2019 Source Nasal/Nares 10/20/21 10:59 10/20/21 Blood Cultures: No Data to Display Toxicology Panel: No Data to Display Imaging and Studies Imaging and Studies Study information below may be from another EMR and interpreted by another provider. Please see original notes in EMR for more complete details. Stress Test Summary: 04/03/10: Negative Anesthesia Assessment and Plan Anesthesia History Personal History: No History of Anesthesia Complications Family History: No Family History of Anesthesia Complications Exercise Tolerance Exercise Tolerance: Metabolic Equivalents>4 Pertinent Negatives Pertinent Negatives: No Symptoms of GERD Cardiac & Pulmonary Exam Cardiac Exam: Normal S1/S2 Heart Sounds Pulmonary Exam: Clear Bilateral Breath Sounds Implantable Cardiac Device Does patient have a Pacemaker or an ICD?: No Airway Exam Known Difficult Airway: No Mallampati Class: 3 Mouth Opening: Narrow (< 3cm) Thyromental Distance: Greater than 3 cm Neck Range of Motion: Full ROM Neck Circumference: Normal Teeth Condition: Normal Dentition ASA Classification ASA Score: ASA 2 Emergency Case?: No NPO Status NPO Status: NPO Clears >2 hours, Solids >8 hours Anesthesia Plan Resuscitation Status: Full Code Anesthesia Technique: General Anesthesia Airway Planned: Natural Airway Monitors Used: Standard Monitors
[2021-10-23 07:24] VITALS: BMI 29.9
--- NOTE | 2021-10-23 07:43 | BOWEL_PTH ---
PATIENT: Radha Chowdhury LOC: [facility] U#:[id number] AGE/SX: 71/F ROOM: RE10/23/[address]: Elidia Vivar MD : [id number] BED: DIS: 10/23/2021 SPEC #: [id number] RECD: 10/23/21 12:38 STATUS: HELIO REQ #: [id number] DELONTE: 10/23/21 07:[address]: Elidia Vivar DEPT: Surgical Specimen RECD BY: Sara Evans ENTERED: 10/23/21 12:39 SP TYPE: Bowel OTHR DR: Kedar Rankin Tissues: 1 - BIOPSY BOWEL Procedures: GROSS AND MICRO LEVEL 4 Comments: [id number]
[2021-10-23 08:05] VITALS: BP 117/70; PULSE 60; RESP 16; TEMP 36.2; O2SAT 99
[2021-10-23 08:35] VITALS: BP 135/86; PULSE 58; RESP 18; TEMP 36.3; O2SAT 100
--- NOTE | 2021-10-23 08:43 | W.ANESPOSTOP ---
Postoperative Evaluation Date, Time and Location Date Performed: 10/23/21 Time Performed: 08:15 Patient Location: Day Surgery Unit Vital Signs Most Recent Imported Vital Signs: Most Recent Vital Signs Temp Pulse Resp BP Pulse Ox 36.2 C L 60 16 117/70 99 10/23/21 08:05 10/23/21 08:05 10/23/21 08:05 10/23/21 08:05 10/23/21 08:05 Pain Score Most Recent Pain Score: Most Recent Pain Score Pain Level 0 10/23/21 08:05 Assessment Mental Status: Awake (Alert & Oriented to Patient Baseline) Airway and Respiratory Function: Patent airway with normal (patient baseline) respiratory exam Cardiovascular Function: Hemodynamically Stable Hydration Status: Adequately Hydrated Nausea & Vomiting: No Nausea or Vomiting Pain: Pt. Denies Any Pain Peripheral Nerve Block: Patient did not receive a nerve block
== END 2021-10-23 09:00 | disposition home or self-care (01) ==
PROVIDERS: PCP Physician Assistant; Visit Provider Surgery
PROC: 0DJD8ZZ Inspection of Lower Intestinal Tract, Via Natural or Artificial Opening Endoscopic (ICD-10-PCS; CPT 45378; principal; 2021-10-23 07:30)
DX: Z12.11 Encounter for screening for malignant neoplasm of colon (principal); D12.2 Benign neoplasm of ascending colon; Z80.0 Family history of malignant neoplasm of digestive organs; I10 Essential (primary) hypertension; J45.909 Unspecified asthma, uncomplicated; K64.0 First degree hemorrhoids
CPT/HCPCS: 45380; 88305

== ENCOUNTER → 2022-02-19 01:36 | Outpatient (CLI) | payer MEDICARE, BC, SELFPAY ==
--- NOTE | 2022-02-19 06:45 | DI.US_ITS ---
Exam(s) US PELVIS TRANSVAGINAL EXAM: US PELVIS TRANSVAGINAL CLINICAL HISTORY: R ovarian cyst surveillence,pelvic pain,r10.2,n83.201 TECHNIQUE: Transabdominal and transvaginal imaging was performed using standard protocol. COMPARISON: CT CT renal colic wo from 06/09/2018 US US PELVIS TRANSVAGINAL from 07/18/2020 FINDINGS: KIDNEYS: Kidneys are symmetric in size. No evidence of renal calculi. No evidence of hydronephrosis. No renal mass or cyst identified. UTERUS: The retroverted. 4.6 x 2.2 x 3.5 cm. Endometrium: Not well seen. Myometrium: Unremarkable. Cervix: Unremarkable. OVARIES: Right: Cyst or mass: Stable 2.2 centimeter cyst. Left: Not visualized either transabdominally or transvaginally. CUL-DE-SAC: Free fluid: None. IMPRESSION: 1. Normal-appearing uterus. endometrial stripe not well seen. 2. Stable 2.2 centimeter right ovarian cyst.. DATA REPOSITORY:
== END ==
PROVIDERS: PCP Physician Assistant; Visit Provider Nurse Practitioner Women's Health
DX: R10.2 Pelvic and perineal pain (principal); N83.291 Other ovarian cyst, right side
CPT/HCPCS: 76830; 76856

== ENCOUNTER → 2022-04-03 02:40 | Outpatient (CLI) | payer MEDICARE, BC, SELFPAY ==
--- NOTE | 2022-04-03 16:58 | DI.US_ITS ---
APPROVED REPORT EXAM: Comprehensive 2D, Doppler, and color-flow Echocardiogram Patient Location: Out-Patient Rn Clinician: Lizbeth Barclay RDCS (AE) Indications: LUGO, Lower extremity edema Other Information Study Quality: Fair Conclusion Normal left ventricular wall thickness and chamber size. Estimated ejection fraction is 55 to 60%. Wall motion is normal Normal right ventricular size and systolic function Both atria are normal in size The aortic valve is not well visualized. There is no aortic stenosis or regurgitation Mild mitral annular calcification. Trace mitral regurgitation Normal tricuspid valve with trace to mild regurgitation. Estimated right ventricular systolic pressu re is normal at 19 mmHg Mildly dilated ascending aorta, 3.54 cm Wall motion Left Ventricle The left ventricle is normal size. The left ventricular systolic function is normal. The left ventric ular ejection fraction is within the normal range. There is normal left ventricular wall thickness. T here is normal LV segmental wall motion. There is no ventricular septal defect visualized. LVEF is 59 %. Right Ventricle The right ventricle is normal size. The right ventricular systolic function is normal. The RVSP is 18 .9mmHg. Atria The left atrium size is normal. The right atrium size is normal. The interatrial septum is intact wit h no evidence for an atrial septal defect. Aortic Valve Aortic valve is not well visualized. There is no aortic valvular stenosis. No aortic regurgitation is present. Mitral Valve Mild mitral annular calcification. No evidence of mitral valve stenosis. Trace mitral regurgitation. Tricuspid Valve The tricuspid valve is normal in structure. There is no tricuspid valve stenosis. Trace to mild tricu spid regurgitation. Pulmonic Valve The pulmonary valve is normal in structure. There is no pulmonic valvular stenosis. There is no pulmo vicente valvular regurgitation. Great Vessels The aortic root is normal in size. The ascending aorta is mildly dilated. Aortic arch is not well vis ualized. IVC is normal in size and collapses >50% with inspiration. Pericardium There is no pericardial effusion. 2D Dimensions IVSD d PLAX 0.91 cm F: 0.6-1.0 LV Vol A2C d MOD 86.4 mL LVPW d PLAX 0.92 cm F: 0.6 - 1.0 LV Vol A4C d MOD 71.4 mL LVID d PLAX 4.23 cm F: 3.8 - 5.2 LA vol/ BSA A2C s A-L 18.6 mL/m2 LVDs 2.90 cm F: 2.2 - 3.5 LA vol/ BSA A4C s A-L 20.4 mL/m2 Ao Root d 2.90 cm F: 2.7 - 3.3 LA Vol/ BSA Biplane s A-L 20.5 mL/m2 RA Area A4C 9.44 cm2 LA Area A4C s MOD 14.24 cm2 RA Vol/ BSA A4C s A-L 11.3 mL/m2 LA Area A2C s MOD 12.95 cm2 Ao Asc Diam d 3.54 cm F: 2.3 - 3.1 LV EF A4C MOD 58.7 % LV EF Teichholz 59.1 % LV EF A2C MOD 60.3 % LVEF (Dong's) 59.38 % F: 54 - 74 LV EF Biplane MOD 59.4 % LV Volume 61.73 mL F: 46 - 106 SV 47.02 mL LV Volume Index 34.67 mL/m2 F: 29 - 61 SV Index 26.29 mL/m2 LV Vol Biplane MOD 79.2 mL FS 31.00 % M-Mode TAPSE 2.18 cm (M/F) >1.7 LV Diastology MV E' medial 0.088 (>0.07 m/s) E/A Ratio 0.7 LV E/e MED 9.50 (<14) MV E Vmax 0.84 (0.4-1.3 m/s) MV E' lateral 0.087 (>0.1 m/s) MV A Vmax 1.15 (0.4-1.3 m/s) LV E/e LAT 9.65 (<14) MV E/A Ratio 0.70 MV E/E' medial 9.53 MV E/E' lateral 9.67 Aortic Valve LVOT Area 3.01 cm2 AoV Area Vmax 2.23 cm2 LVOT Vmax 1.26 m/s AoV Area/ BSA (Vmax) 1.25 cm2/m2 LVOT Mean Onur. 0.81 m/s TOBY Mean Onur. 2.03 cm2 LVOT Peak Grad 6.3 mmHg TOBY Mean Onur. Index 1.14 cm2/m2 LVOT Mean Grad 3.1 mmHg LVOT VTI 0.263 m LVOT Diam s 1.95 cm AoV Vmax 1.69 m/s Velocity Ratio 0.74 AoV Mean Onur. 1.20 m/s AoV Peak Grad 11.5 mmHg LVOT SV 79.35 mL AoV Mean Grad 6.6 mmHg AoV VTI 0.309 m AoV Area VTI 2.57 cm2 AoV Area/ BSA (VTI) 1.44 cm/m2 Mitral Valve MV DT 294 (160-240 msec) MV PHT 85 msec MV Area PHT 2.58 cm2 MV VTI 0.356 m MV Area VTI 2.23 (4.0-6.0 cm2) Pulmonary Valve PV Vmax 1.08 (0.5-1.5 m/s) RVOT Peak Gr. 1.62 mmHg PV Peak Grad 4.6 mmHg RVOT Mean Gr. 0.75 mmHg PV Mean Grad 2.3 mmHg RVOT VTI 0.112 m PV VTI 0.240 m RVOT Vmax 0.64 m/s Tricuspid Valve TR Peak Grad 15.9 mmHg TR Vmax 1.99 m/s RA Pressure 3.00 mmHg RVSP (TR) 18.9 mmHg
== END ==
PROVIDERS: PCP Physician Assistant; Visit Provider Physician Assistant
DX: R06.09 Other forms of dyspnea (principal); R22.43 Localized swelling, mass and lump, lower limb, bilateral
CPT/HCPCS: 93306

== ENCOUNTER 2022-04-25 15:06 | Outpatient (REF) | payer MEDICARE, BC, SELFPAY ==
[2022-04-25 14:26] LABS: Anion Gap 10.6 mmol/L (3-11); BUN 16 mg/dL (7-18); CO2 30.4 mmol/L (21.0-32.0); Calcium 9.6 mg/dL (8.5-10.1); Calculated LDL 195 mg/dL (<100); Chloride 99 mmol/L (98-107); Cholesterol 296 mg/dL (<200); Estimated GFR 54.97 (mL/min/1.73m2); Ferritin 201 ng/mL (8-252); Glucose 104 mg/dL (74-106); HDL Cholesterol 82 mg/dL (40-60); Potassium 4.1 mmol/L (3.5-5.1); Sodium 140 mmol/L (136-145); Triglyceride 98 mg/dL (<150)
== END 2022-04-25 15:07 | disposition home or self-care (01) ==
LOC: NCHCN 15:06
PROVIDERS: PCP Physician Assistant; Visit Provider Physician Assistant
DX: I10 Essential (primary) hypertension (principal); G25.81 Restless legs syndrome; E78.5 Hyperlipidemia, unspecified
CPT/HCPCS: 80048; 80061; 82728

== ENCOUNTER 2022-05-20 18:40 | Emergency (ER) | payer MEDICARE, BC, SELFPAY ==
[2022-05-20 18:44] VITALS: BP 164/84; PULSE 77; RESP 18; TEMP 35.4; O2SAT 98
--- NOTE | 2022-05-20 18:45 | DI.RAD_ITS ---
Exam(s) XR ANKLE RT COMPLETE EXAM: XR ANKLE RT COMPLETE CLINICAL HISTORY: Injury R/O Fracture. TECHNIQUE: 2D digital imaging was performed. COMPARISON: No exams were available for comparison FINDINGS: 3 views No fracture or widening of the mortise. Talar dome unremarkable. Base of the 5th metacarpal remarka ble. Bone density normal. No osseous lesions. IMPRESSION: No significant findings. DATA REPOSITORY: RADIATION DOSE DELIVERED:
--- NOTE | 2022-05-20 18:50 | ED.GENADUL_ITS ---
Discharge Plan Disposition Patient Disposition: HOME Condition: Stable Discharge Details Clinical Impression: Moderate right ankle sprain Primary Care Provider: Kedar Rankin ED Provider: Beulah Ravi Home Meds and New Rx's Prescriptions: No Action ropinirole 1 mg tablet 1 mg PO DAILY albuterol sulfate [ProAir HFA] 90 mcg/actuation HFA aerosol inhaler 2 puff inhalation Q6H PRN hydrochlorothiazide 25 mg tablet 1 tab PO DAILY Discharge Instructions Instructions: Ankle Sprain (ED) Additional Instructions: Use the walking boot as instructed and crutches weightbearing advance as tolerated. Rest, ice, compression, elevation. Please take Tylenol or Ibuprofen with food every 4-6 hours as needed for pain and swelling. X-rays at this time do not show any acute fracture. If no improvement in the next 1 to 2 weeks please follow-up with primary care provider or orthopedics. Stand Alone Forms: Work Release Referrals: Kedar Rankin [Primary Care Provider] - 3 days Discharge Data Discharge Date/Time-TO BE ENTERED AT DEPARTURE: 05/20/22 19:41 Medical Decision Making 72-year-old female presents to the ER with chief complaint of right ankle and foot pain status post mechanical fall just prior to arrival. Patient states he was carrying a box walking up some stairs she lost her footing landed on her right ankle her current and has been unable to bear weight since then. She does have swelling to her lateral malleolus and tenderness. X-ray ankle ordered ice pack. I did offer Tylenol or ibuprofen which patient declined at this time. Imaging Data Radiologic Study: Imaging: X-Ray Radiologist's impression: Imaging protocol: Radiologic exam of the Right ankle. Views: 3 or more views. COMPARISON: No relevant prior studies available. FINDINGS: Bones/joints: No acute fracture or dislocation. Minimal calcaneal spur. Small joint effusion Soft tissues: Normal. IMPRESSION: No acute fracture Small joint effusion suspected Thank you for allowing us to participate in the care of your patient. Dictated and Authenticated by: Israel Westbrook MD HPI General Mode of arrival: wheelchair . Date/Time Provider Initiated Documentation: 05/20/22 18:47 . Limitations to Documentation: no limitations . Information obtained by: patient, RN notes reviewed and old records reviewed . HPI Narrative: 72-year-old female presents to the ER with chief complaint of right ankle and foot pain status post mechanical fall just prior to arrival. Patient states he was carrying a box walking up some stairs she lost her footing landed on her right ankle her current and has been unable to bear weight since then. She does have swelling to her lateral malleolus and tenderness. She did not take anything prior to arrival. She does have a past medical history of hypertension, asthma, depression, hyperlipidemia, left bundle branch block. Related Data Home Medications Medication Instructions Recorded Confirmed albuterol sulfate 90 mcg/actuation 2 puff inhalation Q6H PRN 03/03/21 01/10/22 aerosol inhaler (ProAir HFA) ropinirole 1 mg tablet 1 mg PO DAILY 03/03/21 05/20/22 hydrochlorothiazide 25 mg tablet 1 tab PO DAILY 05/20/22 05/20/22 Allergies Allergy/AdvReac Type Severity Reaction Status Date / Time No Known Allergies Allergy Unverified 05/20/22 18:49 General Stated Complaint: Orthopedic CALLIE: 4 Review of Systems ENT Ears, Nose, Mouth, and Throat: Denies neck pain Musculoskeletal Musculoskeletal: Denies back pain, Reports arthralgias, Reports joint swelling and Denies neck pain PFSH All Active Problems (Updated 05/20/22 @ 19:25 by Beulah Ravi NP) Moderate right ankle sprain (Acute) Sessile colonic polyp (Acute) Encounter for routine gynecological examination (Acute 10/28/14) Pap/hpv done recommend continuing yearly mammograms advised re colonoscopy recommendations and benefits Cystocele (Acute) Medical History Allergic asthma Asthma 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) Depression History of hypertension History of malignant neoplasm of breast History of pericarditis Hyperlipidemia Hypertension Left bundle branch block Radiculopathy Restless leg syndrome Surgical History Appendectomy (~1970) Biopsy of breast L breast benign 1994 Cholecystectomy 1979 secondary to benign tumor no stones . History of cataract surgery History of cholecystectomy History of colonoscopy (~10/2021) Ligation of fallopian tube 1977 S/P cervical spinal fusion S/P coronary angiogram 10 years ago per patient Tonsillectomy (~1960) Family History Other Diabetes Heart disease Hyperlipidemia Personal history of malignant neoplasm Social History Smoking/Tobacco Use Status: Never Smoking risk assessment performed?: Yes Alcohol Intake: current Alcohol Intake frequency: a few times a week Alcohol type: wine Drug use: Never Substance use type: does not use Do you feel safe at home: Yes Do you feel safe in your relationship?: Yes Exam Extrem Right lower extremity: ankle Details: tenderness Location: of the lateral malleolus and anterolaterally, swelling and no edema; no unusual warmth, no abrasions, no lacerations, no ecchymosis, no foreign bodies and no penetrating wound Course Vital Signs Vital signs: Vital Signs Temperature 35.4 C L 05/20/22 18:44 Pulse 77 05/20/22 18:44 Respiratory Rate 18 05/20/22 18:44 Blood Pressure 164/84 H 05/20/22 18:44 Pulse Oximetry 98 05/20/22 18:44 Temperature 35.4 C L 05/20/22 18:44 Pulse 77 05/20/22 18:44 Respiratory Rate 18 05/20/22 18:44 Respiratory Effort Non-Labored 05/20/22 18:47 Blood Pressure 164/84 H 05/20/22 18:44 Blood Pressure Position Sitting 05/20/22 18:44 Pulse Oximetry 98 05/20/22 18:44 Oxygen Delivery Method Room Air 05/20/22 18:44 Oxygen Flow Rate 0 05/20/22 18:44 Pain Level 9 05/20/22 18:44
--- NOTE | 2022-05-20 19:18 | DI.VRAD_ITS ---
PROCEDURE INFORMATION: Exam: XR Right Ankle Exam date and time: 05/20/2022 7:08 PM Age: 72 years old Clinical indication: Pain; Ankle; Right; Patient HX: Injury R/O fracture TECHNIQUE: Imaging protocol: Radiologic exam of the Right ankle. Views: 3 or more views. COMPARISON: No relevant prior studies available. FINDINGS: Bones/joints: No acute fracture or dislocation. Minimal calcaneal spur. Small joint effusion Soft tissues: Normal. IMPRESSION: No acute fracture Small joint effusion suspected Dictated and Authenticated by: Israel Westbrook MD. Ordering:DEBBIE Riojas MD
== END 2022-05-20 19:41 | disposition home or self-care (01) ==
PROVIDERS: Emergency Provider Registered Nurse Emergency; PCP Physician Assistant
DX: S93.401A Sprain of unspecified ligament of right ankle, initial encounter (principal); I10 Essential (primary) hypertension; J45.909 Unspecified asthma, uncomplicated; W10.9XXA Fall (on) (from) unspecified stairs and steps, initial encounter; Y93.01 Activity, walking, marching and hiking
CPT/HCPCS: 99283; 73610; 99282

== ENCOUNTER → 2022-06-04 09:25 | Outpatient (BNVA) | payer MEDICARE, BC, SELFPAY | PROVIDERS: PCP Physician Assistant; Referring Provider Physician Assistant; Visit Provider Physician Assistant Surgical | DX: W10.8XXA Fall (on) (from) other stairs and steps, initial encounter (principal); S93.401A Sprain of unspecified ligament of right ankle, initial encounter | CPT/HCPCS: 99214 ==

== ENCOUNTER → 2022-07-19 02:13 | Outpatient (CLI) | payer MEDICARE, BC, SELFPAY ==
--- NOTE | 2022-07-19 | DI.RAD_ITS ---
Exam(s) XR LUMBAR SPINE COMPLETE EXAM: XR LUMBAR SPINE COMPLETE CLINICAL HISTORY: LOW BACK PAIN, M54.50. TECHNIQUE: 2D digital imaging was performed of the lumbar spine. Five images were obtained. AP, la teral, right oblique, left oblique and L5-S1 spot views were obtained. COMPARISON: No exams were available for comparison FINDINGS: BONES: No fracture or destructive lesion. There are endplate osteophytes at multiple levels of the afua mbar spine but particularly at L2-3 and L3-L4. Degenerative changes of the facets are seen in the low er lumbar spine. DISKS: There is disc space narrowing at L2-3, L3-L4 and L5-S1. Vacuum discs are seen from L2-3 throu gh L5-S1. ALIGNMENT: Lumbar spinal alignment is within normal limits. No spondylolysis or spondylolisthesis. SOFT TISSUE: There are surgical clips in the right upper quadrant of the abdomen. IMPRESSION: Moderately severe degenerative changes in the lumbar spine. DATA REPOSITORY: RADIATION DOSE DELIVERED:
--- NOTE | 2022-07-19 | DI.DEXA_ITS ---
Exam(s) XR DEXA BONE DENSITY W/WO JEROME EXAM: XR DEXA BONE DENSITY W/WO JEROME CLINICAL HISTORY: SCREENING FOR OSTEOPOROSIS IN POSTMENOPAUSAL WOMAN, Z78.0 TECHNIQUE: COMPARISON: No exams were available for comparison FINDINGS: Lateral Spine Image: Unremarkable. No compression deformities identified. Left hip: Total T-Score: -0.4 Total Z-Score: 1.1 T- and Z-scores: Within normal limits. There is osteopenia in the femoral neck with a T-score of -2.1 . Lumbar Spine: Total T-Score: 3.4 Total Z-Score: 5.5 T- and Z-scores: Within normal limits. IMPRESSION: No evidence of osteoporosis.
== END ==
PROVIDERS: PCP Physician Assistant; Visit Provider Physician Assistant
DX: Z78.0 Asymptomatic menopausal state (principal); M47.816 Spondylosis without myelopathy or radiculopathy, lumbar region; Z13.820 Encounter for screening for osteoporosis; M85.88 Other specified disorders of bone density and structure, other site
CPT/HCPCS: 77080; 72110

== ENCOUNTER 2022-07-20 05:39 | Observation (INO) | payer MEDICARE, BC, SELFPAY ==
[2022-07-20] VITALS (91 sets, daily range): BP systolic 93–152; BP diastolic 43–115; PULSE 64–95; RESP 7–24; TEMP 36.5–37.7; O2SAT 78–99
--- NOTE | 2022-07-20 05:30 | RT.EKG_ITS ---
APPROVED REPORT Exam: Resting ECG Reason for Exam: chest pain Patient Location: E HR:74 bpm ECG Measurements Heart Rate 74 AXIS WA 147 P 50 QRSd 155 QRS -27 QT 442 T 149 QTc 489 Conclusion Sinus rhythm...normal P axis, V-rate 60- 99 Left bundle branch block...QRSd>120, broad/notched R Physician: LBBB, negative /s/garbossa,unchanged from ekg on 03/14/10
[2022-07-20] MEDS: nitroGLYcerin 0.4 MG TAB SL ×3 (05:45→15:14)
--- NOTE | 2022-07-20 05:52 | W.ED.GENAD ---
Discharge Plan Disposition Patient Disposition: STILL A PATIENT Condition: Stable Discharge Details Chief Complaint: Chest Pain Clinical Impression: Chest pain, Incidental pulmonary nodule Primary Care Provider: Kedar Rankin ED Provider: Vinny Urbina Home Meds and New Rx's Prescriptions: No Action albuterol sulfate [ProAir HFA] 90 mcg/actuation HFA aerosol inhaler 2 puff inhalation Q6H PRN ropinirole 1 mg tablet 1.5 mg PO DAILY hydrochlorothiazide 25 mg tablet 1 tab PO DAILY atorvastatin 20 mg tablet 20 mg PO DAILY chlorthalidone 25 mg tablet 25 mg PO DAILY Discharge Instructions Additional Instructions: Please follow-up in 6 months for repeat imaging of your nodule that was noted in your chest Medical Decision Making 72-year-old female with a past medical history of a very recent diagnosis of hypertension and high cholesterol for which she was just started on medications at that meds have actually not even come in yet, presents today for chest pain. Patient states that today at about 5 PM while she was driving she had sudden onset sharp substernal chest pain. It was worse when she takes a deep breath, but not worsened with activity. She denies any tearing or ripping sensation. She has never had symptoms like this before. She denies any vomiting or diarrhea. She states that the pain continued throughout the night and so she came in now 12 hours later for assessment. Family history demonstrates notable cardiac history from her mother who had a massive heart attack in her 50s. Patient has not smoked before. She denies any IV or illicit drug use. No other complaints at this time. No history of blood clots or dissections. Physical exam demonstrates well-appearing female. EKG shows left bundle branch block, negative for Sgarbossa criteria. Comparison from prior EKG 12 years ago demonstrates no significant changes. Patient was given a nitroglycerin and this notably improved/relieved her symptoms. Chief concern is for cardiac etiology. We will also get a CTA for evaluation of PE/aortic pathology secondary to her pleuritic pain. We will monitor closely and reassess. 7:46 AM Laboratory work-up is returned, mild white count at 16, CT scan shows no pneumonia though. Electrolytes normal, troponin normal, proBNP shows no signs of cardiac strain. Lipase normal. COVID test negative. CT scan shows no evidence of pulmonary embolism. There is a pulmonary nodule that is noted, this will be added to her diagnoses with recommendations for follow-up on an outpatient nonemergent basis. Patient's chest pain got notably better with the nitroglycerin. Pain went from a 10 out of 10 down to a 4 out of 10 with 2 doses of nitro. Pain came back shortly thereafter, Nitropaste was added, but then this brought her blood pressure down to the 90s systolic. Nitropaste was removed. Pain was then managed with morphine. I do feel that the patient certainly does need to repeat troponin and EKG. Symptoms are concerning especially with a family history. Patient will be signed out to my colleague for follow-up on repeat EKG/troponin. FINDINGS: Pulmonary arteries: No filling defects in the central, lobar, or proximal segmental pulmonary arteries to suggest pulmonary emboli. Normal caliber main pulmonary artery. Aorta: Normal caliber thoracic aorta, with mild atherosclerotic mural calcification of the aortic arch. Thyroid: There is a 0.9 cm hypoattenuating nodule in the inferior left thyroid lobe. Based on current imaging guidelines, a nodule of this size does not require follow-up. Trachea: The trachea and central main airways are patent and normal in caliber. Lungs: There are dependent hypoventilatory changes bilaterally. There is minor linear subsegmental atelectasis versus scarring in the right middle lobe, lingula, and left lower lobe. There is no consolidation or mass. There is a 6 mm subsolid/ground-glass nodule in the anterior right upper lobe on series 11, image 101. Pleural spaces: No pleural effusion or pneumothorax. Heart: Heart size is normal. There is minimal coronary artery calcification. Mitral annular calcification is also noted. No pericardial effusion. Lymph nodes: Unremarkable. No pathologically enlarged mediastinal, hilar, or axillary lymph nodes. Bones/joints: Degenerative changes. No suspicious osseous lesions. Soft tissues: Unremarkable. Other findings: Visualized upper abdominal structures demonstrate no acute or suspicious abnormality. IMPRESSION: 1. No acute abnormality in the chest. No central, lobar, or proximal segmental pulmonary emboli. 2. Incidental 6 mm subsolid nodule in the right upper lobe. Current imaging guidelines recommend CT Chest at 6-12 months to confirm persistence of the nodule, then CT Chest at 3 years and 5 years. (Reference: Ever) References: Ever Jackson, et al. Guidelines for Management of Incidental Pulmonary Nodules Detected on CT Images: From the Fleischner Society 2017. Radiology. 2017;284(1):228-243. Thank you for allowing us to participate in the care of your patient. Dictated and Authenticated by: Shawna Stock MD 07/20/2022 7:45 AM Eastern Time ([place] & [place]) HPI General Date/Time Provider Initiated Documentation: 07/20/22 05:40. HPI Narrative: 72-year-old female with a past medical history of a very recent diagnosis of hypertension and high cholesterol for which she was just started on medications at that meds have actually not even come in yet, presents today for chest pain. Patient states that today at about 5 PM while she was driving she had sudden onset sharp substernal chest pain. It was worse when she takes a deep breath, but not worsened with activity. She denies any tearing or ripping sensation. She has never had symptoms like this before. She denies any vomiting or diarrhea. She states that the pain continued throughout the night and so she came in now 12 hours later for assessment. Family history demonstrates notable cardiac history from her mother who had a massive heart attack in her 50s. Patient has not smoked before. She denies any IV or illicit drug use. No other complaints at this time. No history of blood clots or dissections. Related Data Home Medications Medication Instructions Recorded Confirmed albuterol sulfate 90 mcg/actuation 2 puff inhalation Q6H PRN 03/03/21 07/20/22 aerosol inhaler (ProAir HFA) hydrochlorothiazide 25 mg tablet 1 tab PO DAILY 05/20/22 07/20/22 ropinirole 1 mg tablet 1.5 mg PO DAILY 06/04/22 07/20/22 atorvastatin 20 mg tablet 20 mg PO DAILY 07/20/22 07/20/22 chlorthalidone 25 mg tablet 25 mg PO DAILY 07/20/22 07/20/22 Allergies Allergy/AdvReac Type Severity Reaction Status Date / Time environmental Allergy Uncoded 07/20/22 05:51 General Stated Complaint: Chest Pain CALLIE: 2 Review of Systems All systems reviewed & are unremarkable except as noted in HPI and below PFSH All Active Problems (Updated 07/20/22 @ 07:51 by Vinny Urbina DO) Chest pain (Acute) Incidental pulmonary nodule (Acute) Sessile colonic polyp (Acute) Encounter for routine gynecological examination (Acute 10/28/14) Pap/hpv done recommend continuing yearly mammograms advised re colonoscopy recommendations and benefits Cystocele (Acute) Medical History Allergic asthma Asthma 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) Depression History of hypertension History of malignant neoplasm of breast History of pericarditis Hyperlipidemia Hypertension Left bundle branch block Radiculopathy Restless leg syndrome Surgical History Appendectomy (~1970) Biopsy of breast L breast benign 1994 Cholecystectomy 1979 secondary to benign tumor no stones . History of cataract surgery History of cholecystectomy History of colonoscopy (~10/2021) Ligation of fallopian tube 1977 S/P cervical spinal fusion S/P coronary angiogram 10 years ago per patient Tonsillectomy (~1960) Family History Other Diabetes Heart disease Hyperlipidemia Personal history of malignant neoplasm Social History Smoking/Tobacco Use Status: Never Smoking risk assessment performed?: Yes Alcohol Intake: current Alcohol Intake frequency: a few times a week Alcohol type: wine Drug use: Never Substance use type: does not use Do you feel safe at home: Yes Do you feel safe in your relationship?: Yes Exam Narrative Exam Narrative: 1.Const: Well-nourished, Well-developed, appearing stated age 2.Eyes: PERRL, no conjunctival injection, and symmetrical lids. 3.ENT: Atraumatic external nose and ears. Moist MM. Neck: Symmetric, trachea midline, No thyromegaly. 4.CVS: +S1/S2, No murmurs or gallops. Peripheral pulses 2+ and equal in all extremities. Brisk capillary refill in all extremities. 5.RESP: Unlabored respiratory effort. Clear to auscultation bilaterally. No wheezes rales or rhonchi 6.GI: Soft, Nontender/Nondistended, No hepatosplenomegaly. No guarding or rebound. 7.MSK: Normocephalic/Atraumatic, Extremities w/o deformity or ttp No cyanosis or clubbing, Normal movement of all extremities 8.Skin: Warm, Dry. No rashes or lesions. 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 Sensation grossly intact, no focal neurologic deficits. 10.Psych: (AAO) x3. Appropriate mood and affect Course Vital Signs Vital signs: Vital Signs Temperature 36.5 C 07/20/22 05:42 Pulse 79 07/20/22 05:42 Respiratory Rate 24 07/20/22 05:42 Blood Pressure 152/78 H 07/20/22 05:42 Pulse Oximetry 99 07/20/22 05:42 Temperature 36.5 C 07/20/22 05:42 Temperature Source Temporal Artery Scan 07/20/22 05:42 Pulse 79 07/20/22 05:42 Respiratory Rate 24 07/20/22 05:42 Respiratory Effort 07/20/22 05:42 Blood Pressure 152/78 H 07/20/22 05:42 Blood Pressure Position Supine 07/20/22 05:42 Pulse Oximetry 99 07/20/22 05:42 Pain Level 7 07/20/22 05:42
[2022-07-20] MEDS: Aspirin 81 MG CHEW 324 MG CH (05:59)
[2022-07-20] MEDS: Acetaminophen 500 MG TAB ×2 (06:19→06:20)
[2022-07-20 06:21] LABS: Source Nasal/Nares
[2022-07-20 06:22] LABS: Abs Immature Grans 0.06 10^3/uL (0.0-0.06); Absolute Monocyte Count 0.99 10^3/uL (0.1-0.8); Basophils % 0.4; HCT 41.3 % (36.0-46.0); Immature Grans % 0.4; Lymphocytes % 28.7; MCH 30.4 pg (27.0-33.0); MCHC 33.9 % (32.0-36.0); MCV 90 fL (80-95); MPV 9.3 fL (8.0-11.0); Monocytes % 6.1; Neutrophils % 63.4; Platelet Count 443 10^3/uL (130-400); RDW 12.4 % (11.7-14.6); RDW-SD 40.3 fL; WBC 16.21 10^3/uL (4.4-10.8)
[2022-07-20 06:23] LABS: Absolute Basophil Count 0.06 10^3/uL (0.0-0.2); Absolute Eosinophil Count 0.16 10^3/uL (0.0-0.7); Absolute Lymphocyte Count 4.65 10^3/uL (1.2-3.4); Absolute Neutrophil Count 10.28 10^3/uL (1.2-6.7)
[2022-07-20 06:39] LABS: PTT Activated 25.1 sec (21.0-27.5); Prothrombin Time 9.6 sec (9.3-11.0)
[2022-07-20 06:48] LABS: Lipase 120 U/L (73-393); NT-proBNP 117 pg/mL (<300); Troponin I < 50 ng/L (<or=60)
[2022-07-20 06:52] LABS: COVID-19 PCR Negative (Negative)
[2022-07-20 07:02] LABS: ALT 29 U/L (14-59); AST 17 U/L (15-37); Alkaline Phosphatase 105 U/L (46-116); Anion Gap 10.1 mmol/L (3-11); BUN 18 mg/dL (7-18); Bilirubin, Total 0.4 mg/dL (0.2-1.0); CO2 29.9 mmol/L (21.0-32.0); CREATININE 1.2 mg/dL (0.55-1.02); Calcium 9.7 mg/dL (8.5-10.1); Chloride 99 mmol/L (98-107); Glucose 125 mg/dL (74-106); Sodium 139 mmol/L (136-145); Total Protein 8.3 g/dL (6.4-8.2)
--- NOTE | 2022-07-20 07:06 | DI.CT_ITS ---
Exam(s) CT CHEST PE CTA EXAM: CT CHEST PE CTA CLINICAL HISTORY: CP, SOB, r/o PE. TECHNIQUE: Imaging Protocol: CT angiography of the chest was performed using pulmonary embolus vikash col. Multi planar reconstructions were performed. CONTRAST MATERIAL: Intravenous: Omnipaque 350 Contrast volume: 100 cc COMPARISON: CT CT renal colic wo from 06/09/2018 FINDINGS: CHEST: PULMONARY ARTERIES: There are no intraluminal filling defects to suggest acute pulmonary emboli. LUNGS: There are no infiltrates nor evidence of pulmonary infarction.. There is a solitary noncalcifi ed nodule in the right upper lobe which measures 5-6 millimeters no other nodules evident in the lung winn. MEDIASTINUM: There is no hilar nor mediastinal adenopathy. Nodule noted in the left thyroid lobe. CARDIAC: Heart size is upper normal. There is no pericardial effusion.Caliber of the thoracic aorta is within normal limits. There is no significant shift of the interventricular septum. PARTIALLY VISUALIZED UPPERMOST ABDOMEN: Previous cholecystectomy. Tiny cyst superior pole left kidne y OSSEOUS: No significant osseous lesions.. IMPRESSION: 1. No evidence of acute pulmonary emboli. No evidence of pulmonary infarction.No pleural effusions. 2. There is a 6 millimeter noncalcified nodule in the right upper lobe. Recommend follow-up scan in 3 months. Report called by myself to the ER physician. RADIATION DOSE DELIVERED: 423.61mGy.cm Total DLP DATA REPOSITORY: All CT scans at this facility are submitted to the National Radiology Data Registry (NRDR) Dose Index Registry (DIR) with the [employer] (A[employer]). RADIATION OPTIMIZATION: All CT scans at this facility use at least one of these dose optimization te chniques: automated exposure control; mA and/or kV adjustment per patient size (includes targeted exa ms where dose is matched to clinical indication); or iterative reconstruction.
[2022-07-20 07:08] LABS: Potassium 2.9 mmol/L (3.5-5.1)
[2022-07-20] MEDS: Normal Saline - Diluent 50 ML VIAL IV (07:18)
[2022-07-20] MEDS: Omnipaque 350 MG/ML 100 ML BTL IJ (07:20)
[2022-07-20] MEDS: POTASSIUM CHLORIDE 20 MEQ/100 ML BAG 50 MEQ IVPB (07:27)
[2022-07-20] MEDS: Potassium Chloride 20 MEQ TABCR 40 MEQ PO (07:27)
[2022-07-20] MEDS: MORPHine 4 MG/ML SYR IVP ×3 (07:29→21:16)
--- NOTE | 2022-07-20 07:30 | RT.EKG_ITS ---
APPROVED REPORT Exam: Resting ECG Reason for Exam: chest pain Patient Location: E HR:67 bpm ECG Measurements Heart Rate 67 AXIS DC 157 P 29 QRSd 154 QRS -17 QT 484 T 161 QTc 510 Conclusion Sinus rhythm...normal P axis, V-rate 60- 99 IVCD, consider LBBB...QRSd>120, notch/slur R I aVL V5-6 sinus rhythm at 67, does not meet STEMI criteria, no major change from prior 07/20 5:44, nondiagnosti c EKG
--- NOTE | 2022-07-20 07:45 | DI.VRAD_ITS ---
PROCEDURE INFORMATION: Exam: CTA Chest With Contrast Exam date and time: 07/20/2022 7:05 AM Age: 72 years old Clinical indication: Angina pectoris; Patient HX: SOB, chest pain TECHNIQUE: Imaging protocol: Computed tomographic angiography of the chest with contrast. 3D rendering (Not supervised by radiologist): MIP and/or 3D reconstructed images were created by the technologist. Radiation optimization: All CT scans at this facility use at least one of these dose optimization techniques: automated exposure control; mA and/or kV adjustment per patient size (includes targeted exams where dose is matched to clinical indication); or iterative reconstruction. Contrast material: OMNI-PAQUE 350; Contrast volume: 100 ml; Contrast route: INTRAVENOUS (IV); COMPARISON: CT renal colic wo 06/09/2018 5:44 AM FINDINGS: Pulmonary arteries: No filling defects in the central, lobar, or proximal segmental pulmonary arteries to suggest pulmonary emboli. Normal caliber main pulmonary artery. Aorta: Normal caliber thoracic aorta, with mild atherosclerotic mural calcification of the aortic arch. Thyroid: There is a 0.9 cm hypoattenuating nodule in the inferior left thyroid lobe. Based on current imaging guidelines, a nodule of this size does not require follow-up. Trachea: The trachea and central main airways are patent and normal in caliber. Lungs: There are dependent hypoventilatory changes bilaterally. There is minor linear subsegmental atelectasis versus scarring in the right middle lobe, lingula, and left lower lobe. There is no consolidation or mass. There is a 6 mm subsolid/ground-glass nodule in the anterior right upper lobe on series 11, image 101. Pleural spaces: No pleural effusion or pneumothorax. Heart: Heart size is normal. There is minimal coronary artery calcification. Mitral annular calcification is also noted. No pericardial effusion. Lymph nodes: Unremarkable. No pathologically enlarged mediastinal, hilar, or axillary lymph nodes. Bones/joints: Degenerative changes. No suspicious osseous lesions. Soft tissues: Unremarkable. Other findings: Visualized upper abdominal structures demonstrate no acute or suspicious abnormality. IMPRESSION: 1. No acute abnormality in the chest. No central, lobar, or proximal segmental pulmonary emboli. 2. Incidental 6 mm subsolid nodule in the right upper lobe. Current imaging guidelines recommend CT Chest at 6-12 months to confirm persistence of the nodule, then CT Chest at 3 years and 5 years. (Reference: [place]) References: Ever Jackson et al. Guidelines for Management of Incidental Pulmonary Nodules Detected on CT Images: From the Fleischner Society 2017. Radiology. 2017;284(1):228-243. Dictated and Authenticated by: Shawna Stock MD. Ordering:DEBORA Casillas MD
[2022-07-20 07:53] LABS: Magnesium 2.1 mg/dL (1.8-2.4)
--- NOTE | 2022-07-20 08:11 | W.EDPROG ---
Date of service: 07/20/22 Time of Service: 08:00 Medical Decision Making Pt signed out to me at time of shift change by Dr. Urbina with repeat trop, likely admission pending. Repeat troponin negative. HEART score moderate, discussed patient presentation results with Dr. Espino, hospitalist, plan for admission. On reassessment, patient reports that pain is present but mild and not worsening. She denies any other symptoms at this time. She is amenable to admission. Medical Records Medical records reviewed: Yes I reviewed the patient's medical records. Lab Data Lab results reviewed: Yes I reviewed the patient's lab results. Labs: Laboratory Tests Range/Units 07/20/22 07/20/22 07/20/22 05:50 05:50 05:50 WBC (4.4-10.8) 10^3/uL 16.21 H RBC (3.93-5.22) 10^6/uL 4.60 Hgb (11.2-15.7) g/dL 14.0 Hct (36.0-46.0) % 41.3 MCV (80-95) fL 90 MCH (27.0-33.0) pg 30.4 MCHC (32.0-36.0) % 33.9 RDW (11.7-14.6) % 12.4 Plt Count (130-400) 10^3/uL 443 H MPV (8.0-11.0) fL 9.3 Immature Gran % 0.4 Neutrophils % 63.4 Lymphocytes % 28.7 Monocytes % 6.1 Eosinophils % 1.0 Basophils % 0.4 Nucleated RBC % (0.0-0.3) % 0.0 Absolute Neutrophils (1.2-6.7) 10^3/uL 10.28 H Absolute Lymphocytes (1.2-3.4) 10^3/uL 4.65 H Absolute Monocytes (0.1-0.8) 10^3/uL 0.99 H Absolute Eosinophils (0.0-0.7) 10^3/uL 0.16 Absolute Basophils (0.0-0.2) 10^3/uL 0.06 PT (9.3-11.0) sec 9.6 INR (0.9-1.1) 1.0 APTT (21.0-27.5) sec 25.1 Sodium (136-145) mmol/L Potassium (3.5-5.1) mmol/L Chloride (98-107) mmol/L Carbon Dioxide (21.0-32.0) mmol/L Anion Gap (3-11) mmol/L BUN (7-18) mg/dL Creatinine (0.55-1.02) mg/dL Est GFR (CKD-EPI 2020) (mL/min/1.73m2) Glucose (74-106) mg/dL Calcium (8.5-10.1) mg/dL Magnesium (1.8-2.4) mg/dL Total Bilirubin (0.2-1.0) mg/dL AST (15-37) U/L ALT (14-59) U/L Alkaline Phosphatase (46-116) U/L Troponin I (<or=60) ng/L < 50 NT-Pro-B Natriuret Pep (<300) pg/mL 117 Total Protein (6.4-8.2) g/dL Albumin (3.4-5.0) g/dL Lipase (73-393) U/L 120 Acetaminophen COVID-19 Source SARS-CoV-2 (PCR) (Negative) Range/Units 07/20/22 07/20/22 07/20/22 05:50 05:50 05:50 WBC (4.4-10.8) 10^3/uL RBC (3.93-5.22) 10^6/uL Hgb (11.2-15.7) g/dL Hct (36.0-46.0) % MCV (80-95) fL MCH (27.0-33.0) pg MCHC (32.0-36.0) % RDW (11.7-14.6) % Plt Count (130-400) 10^3/uL MPV (8.0-11.0) fL Immature Gran % Neutrophils % Lymphocytes % Monocytes % Eosinophils % Basophils % Nucleated RBC % (0.0-0.3) % Absolute Neutrophils (1.2-6.7) 10^3/uL Absolute Lymphocytes (1.2-3.4) 10^3/uL Absolute Monocytes (0.1-0.8) 10^3/uL Absolute Eosinophils (0.0-0.7) 10^3/uL Absolute Basophils (0.0-0.2) 10^3/uL PT (9.3-11.0) sec INR (0.9-1.1) APTT (21.0-27.5) sec Cancelled Sodium (136-145) mmol/L 139 Potassium (3.5-5.1) mmol/L 2.9 L Chloride (98-107) mmol/L 99 Carbon Dioxide (21.0-32.0) mmol/L 29.9 Anion Gap (3-11) mmol/L 10.1 BUN (7-18) mg/dL 18 Creatinine (0.55-1.02) mg/dL 1.2 H Est GFR (CKD-EPI 2020) (mL/min/1.73m2) 48.70 Glucose (74-106) mg/dL 125 H Calcium (8.5-10.1) mg/dL 9.7 Magnesium (1.8-2.4) mg/dL Total Bilirubin (0.2-1.0) mg/dL 0.4 AST (15-37) U/L 17 ALT (14-59) U/L 29 Alkaline Phosphatase (46-116) U/L 105 Troponin I (<or=60) ng/L NT-Pro-B Natriuret Pep (<300) pg/mL Total Protein (6.4-8.2) g/dL 8.3 H Albumin (3.4-5.0) g/dL 4.0 Lipase (73-393) U/L Acetaminophen Cancelled COVID-19 Source SARS-CoV-2 (PCR) (Negative) Range/Units 07/20/22 07/20/22 07/20/22 05:50 05:50 05:51 WBC (4.4-10.8) 10^3/uL RBC (3.93-5.22) 10^6/uL Hgb (11.2-15.7) g/dL Hct (36.0-46.0) % MCV (80-95) fL MCH (27.0-33.0) pg MCHC (32.0-36.0) % RDW (11.7-14.6) % Plt Count (130-400) 10^3/uL MPV (8.0-11.0) fL Immature Gran % Neutrophils % Lymphocytes % Monocytes % Eosinophils % Basophils % Nucleated RBC % (0.0-0.3) % Absolute Neutrophils (1.2-6.7) 10^3/uL Absolute Lymphocytes (1.2-3.4) 10^3/uL Absolute Monocytes (0.1-0.8) 10^3/uL Absolute Eosinophils (0.0-0.7) 10^3/uL Absolute Basophils (0.0-0.2) 10^3/uL PT (9.3-11.0) sec INR (0.9-1.1) APTT (21.0-27.5) sec Sodium (136-145) mmol/L Potassium (3.5-5.1) mmol/L Chloride (98-107) mmol/L Carbon Dioxide (21.0-32.0) mmol/L Anion Gap (3-11) mmol/L BUN (7-18) mg/dL Creatinine (0.55-1.02) mg/dL Est GFR (CKD-EPI 2020) (mL/min/1.73m2) Glucose (74-106) mg/dL Calcium (8.5-10.1) mg/dL Magnesium (1.8-2.4) mg/dL 2.1 Total Bilirubin (0.2-1.0) mg/dL AST (15-37) U/L ALT (14-59) U/L Alkaline Phosphatase (46-116) U/L Troponin I (<or=60) ng/L < 50 NT-Pro-B Natriuret Pep (<300) pg/mL Total Protein (6.4-8.2) g/dL Albumin (3.4-5.0) g/dL Lipase (73-393) U/L Acetaminophen COVID-19 Source Nasal/Nares SARS-CoV-2 (PCR) (Negative) Negative Range/Units 07/20/22 07/20/22 06:19 08:47 WBC (4.4-10.8) 10^3/uL RBC (3.93-5.22) 10^6/uL Hgb (11.2-15.7) g/dL Hct (36.0-46.0) % MCV (80-95) fL MCH (27.0-33.0) pg MCHC (32.0-36.0) % RDW (11.7-14.6) % Plt Count (130-400) 10^3/uL MPV (8.0-11.0) fL Immature Gran % Neutrophils % Lymphocytes % Monocytes % Eosinophils % Basophils % Nucleated RBC % (0.0-0.3) % Absolute Neutrophils (1.2-6.7) 10^3/uL Absolute Lymphocytes (1.2-3.4) 10^3/uL Absolute Monocytes (0.1-0.8) 10^3/uL Absolute Eosinophils (0.0-0.7) 10^3/uL Absolute Basophils (0.0-0.2) 10^3/uL PT (9.3-11.0) sec INR (0.9-1.1) APTT (21.0-27.5) sec Sodium (136-145) mmol/L Potassium (3.5-5.1) mmol/L Chloride (98-107) mmol/L Carbon Dioxide (21.0-32.0) mmol/L Anion Gap (3-11) mmol/L BUN (7-18) mg/dL Creatinine (0.55-1.02) mg/dL Est GFR (CKD-EPI 2020) (mL/min/1.73m2) Glucose (74-106) mg/dL Calcium (8.5-10.1) mg/dL Magnesium (1.8-2.4) mg/dL Total Bilirubin (0.2-1.0) mg/dL AST (15-37) U/L ALT (14-59) U/L Alkaline Phosphatase (46-116) U/L Troponin I (<or=60) ng/L < 50 NT-Pro-B Natriuret Pep (<300) pg/mL Total Protein (6.4-8.2) g/dL Albumin (3.4-5.0) g/dL Lipase (73-393) U/L Acetaminophen Cancelled COVID-19 Source SARS-CoV-2 (PCR) (Negative) ECG Data Attestation: I personally reviewed and interpreted this ECG (s) as follows: Interpretation: EKG shows sinus rhythm at 67, does not meet STEMI criteria, no major change from prior 07/20 5:44, nondiagnostic EKG Sign Out Sign Out Data: Sign Out Comment: Follow-up on repeat troponin and EKG for chest pain. May require observation/admission. Last updated by Vinny Urbina DO at 07/20/22 07:51 Discharge Plan Disposition Patient Disposition: STILL A PATIENT Condition: Stable Discharge Details Clinical Impression: Chest pain, Incidental pulmonary nodule Admit Date/Time: 07/20/22 09:34 Admit Provider: Royer Espino Attending Provider: Royer Espino Primary Care Provider: Kedar Rankin ED Provider: Estefani Foley
[2022-07-20 09:23] LABS: Troponin I < 50 ng/L (<or=60)
[2022-07-20 10:27] LABS: Troponin I < 50 ng/L (<or=60)
[2022-07-20] MEDS: Potassium Chloride 20 MEQ TABCR PO ×2 (11:06→23:43)
[2022-07-20] MEDS: Heparin 5,000 UNITS/ML VIAL 5000 UNITS SC ×2 (11:07→18:11)
--- NOTE | 2022-07-20 13:30 | RT.EKG_ITS ---
APPROVED REPORT Exam: Resting ECG Reason for Exam: chest pain Patient Location: I HR:75 bpm ECG Measurements Heart Rate 75 AXIS TN 152 P 47 QRSd 136 QRS -21 QT 412 T 140 QTc 461 Conclusion Sinus rhythm...normal P axis, V-rate 50- 99 Left bundle branch block...QRSd>120, broad/notched R
[2022-07-20 15:22] LABS: Bilirubin Negative (Negative); Blood Trace-intact (Negative); Clarity Cloudy (Clear); Glucose Negative (Negative); Ketones Negative (Negative); Leukocyte Esterase Negative (Negative); Nitrite Positive (Negative); Urobilinogen 0.2 EU/dL (Up TO 0.2)
[2022-07-20 16:46] LABS: RBC 0-2 HPF (0-2)
[2022-07-20 16:47] LABS: Bacteria Many HPF (Negative); C & S Indicated? No/Sq. Contamination; Epithelial Cells Moderate HPF (Negative); Mucus Trace (Negative)
[2022-07-20] MEDS: Ketorolac 30 MG/ML VIAL IVP (16:52)
[2022-07-20 17:43] LABS: Crystals Negative HPF (Negative)
--- NOTE | 2022-07-20 19:16 | HPE_ITS ---
Date of service: 07/20/22 Time of Service: 19:16 Assessment and Plan Assessment and plan (1) Chest pain: Status: Acute Assessment and plan: Initially sharp in nature, then developed a pressure-like component that resolved. CTA negative for P.E., dissection, PNA and no evidence of bronchitis. + worsening with deep breath. Pleuritic? Pericarditis (she has had in the past). She and her recently had a 2 week period of cold symptoms. Not costochondritis. Toradol was unhelpful. Nitro helpful but morphine was more effective. Cont prn morphine. Did initiate colchicine 0.6mg BID. Unfortunately, echocardiogram not available over the weekend. Could arrange for Saturday; outpt if she is discharged. (2) Asthma: Assessment and plan: No exacerbation. PRN albuterol. (3) History of pericarditis: Assessment and plan: See above. (4) Hyperlipidemia: Assessment and plan: Cont atorvastatin. (5) Hypertension: Assessment and plan: Previously on HCTZ and just changed to Chlorthalidone which she had just received in the mail and a dose has not been taken. Holding chlorthalidone d/t hypokalemia. Monitor. (6) Restless leg syndrome: Assessment and plan: Cont ropinirole. (7) Leukocytosis: Status: Acute Assessment and plan: Unclear etiology. UA with positive nitrite. 3-5 WBC. Mod epithelials and many bacteria. Was not sent for culture. Asymptomatic. Rocephin was initiated. Monitor. (8) Hypokalemia: Status: Acute Assessment and plan: K of 2.9 She was administered 40 meq po in the ED as well as 20 meq IV. Cont replacement with 20 meq po BID Monitor. (9) DVT prophylaxis: Status: Acute Assessment and plan: SQ heparin. History of Present Illness History of Present Illness Chief Complaint: Chest pain Narrative: This is a 72 female with a recent dx of HLD, recently dx with HTN, RLS. She endorsed sudden onset of sharp substernal chest pain at 5PM the the day before admission while she was driving. She notes worseing with a deep breath. Not reproducible or worsened with any movement or compression of the chest wall. No palpitations. She had no ripping/tearing sensation. No N/V/abd pain. No previous similar CP. The pain continued throughout the night; presented 12 hours after onset. Mother had a massive HI when in her 50's. She is not a smoker. ED work up showed: CT chest w/o pulmonary emboli, pneumonia. EKG with left BBB, NSR. Her WBC count was elevated at 16. Troponin negative. NTProBNP normal. Lytes normal. Covid neg. She was given SL nitro and her pain went from a 10/10 to 4/10 after 2 doses. When the pain returned, nitropaste applied. Her BP decreased into the 90's systolic and the paste was removed. She was then administered IV morphine 4mg for pain. She was admitted for further evaluation and monitoring. Review of Systems All systems reviewed & are unremarkable except as noted in HPI and below PFSH All Active Problems (Updated 07/20/22 @ 19:54 by Royer Espino MD) DVT prophylaxis (Acute) Hypokalemia (Acute) Leukocytosis (Acute) Chest pain (Acute) Incidental pulmonary nodule (Acute) Sessile colonic polyp (Acute) Encounter for routine gynecological examination (Acute 10/28/14) Pap/hpv done recommend continuing yearly mammograms advised re colonoscopy recommendations and benefits Cystocele (Acute) Medical History Allergic asthma Asthma 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) Depression History of hypertension History of malignant neoplasm of breast History of pericarditis Hyperlipidemia Hypertension Left bundle branch block Radiculopathy Restless leg syndrome Surgical History Appendectomy (~1970) Biopsy of breast L breast benign 1994 Cholecystectomy 1979 secondary to benign tumor no stones . History of cataract surgery History of cholecystectomy History of colonoscopy (~10/2021) Ligation of fallopian tube 1977 S/P cervical spinal fusion S/P coronary angiogram 10 years ago per patient Tonsillectomy (~1960) Family History Other Diabetes Heart disease Hyperlipidemia Personal history of malignant neoplasm Social History Smoking/Tobacco Use Status: Never Smoking risk assessment performed?: Yes Alcohol Intake: current Alcohol Intake frequency: a few times a week Alcohol type: wine Drug use: Never Substance use type: does not use Do you feel safe at home: Yes Do you feel safe in your relationship?: Yes Meds Allergies and Home Medications Allergies Allergy/AdvReac Type Severity Reaction Status Date / Time environmental Allergy Uncoded 07/20/22 05:51 Home Medications Medication Instructions Recorded Confirmed Type albuterol sulfate 90 mcg/actuation 2 puff inhalation Q6H PRN 03/03/21 07/20/22 History aerosol inhaler (ProAir HFA) hydrochlorothiazide 25 mg tablet 1 tab PO DAILY 05/20/22 07/20/22 History ropinirole 1 mg tablet 1.5 mg PO DAILY 06/04/22 07/20/22 History atorvastatin 20 mg tablet 20 mg PO DAILY 07/20/22 07/20/22 History chlorthalidone 25 mg tablet 25 mg PO DAILY 07/20/22 07/20/22 History Exam Narrative Exam Narrative: Pleasant female lying in bed. She describes a pressure-like substernal pain; not like the previous sharp pain. She is calm. Not diaphoretic or SOA. Const General: cooperative and no acute distress Nutritional Appearance: obese Orientation: alert and oriented x3 Eyes General: appearance normal, both eyes and all related structures Sclera: sclerae normal Neck Neck: normal visual inspection and no JVD Chest Chest: normal palpation of entire chest wall Resp Effort & Inspection: normal respiratory effort Auscultation: clear to auscultation bilaterally Cardio Rate: regular rate Rhythm: regular rhythm Heart Sounds: S1 normal and S2 normal GI Palpation: soft and nontender Skin General skin exam: no rashes or lesions noted Extrem General: no pedal edema and no calf tenderness Psych Appearance: grossly normal Mental Status: mental status grossly normal Speech and Movement: speech and movement normal Affect: normal affect Thought Content: normal Insight: insight good Judgment: judgment good Results Labs Result diagrams: 07/20/22 05:50 07/20/22 05:50 Labs: Laboratory Results - last 24 hr 07/20/22 07/20/22 07/20/22 05:50 05:50 05:50 WBC 16.21 H RBC 4.60 Hgb 14.0 Hct 41.3 MCV 90 MCH 30.4 MCHC 33.9 RDW 12.4 Plt Count 443 H MPV 9.3 Immature Gran % 0.4 Neutrophils % 63.4 Lymphocytes % 28.7 Monocytes % 6.1 Eosinophils % 1.0 Basophils % 0.4 Nucleated RBC % 0.0 Absolute Neutrophils 10.28 H Absolute Lymphocytes 4.65 H Absolute Monocytes 0.99 H Absolute Eosinophils 0.16 Absolute Basophils 0.06 PT 9.6 INR 1.0 APTT 25.1 Sodium Potassium Chloride Carbon Dioxide Anion Gap BUN Creatinine Est GFR (CKD-EPI 2020) Glucose Calcium Magnesium Total Bilirubin AST ALT Alkaline Phosphatase Troponin I < 50 NT-Pro-B Natriuret Pep 117 Total Protein Albumin Lipase 120 Urine Color Urine Clarity Urine pH Ur Specific Umbarger Urine Protein Urine Ketones Urine Blood Urine Nitrite Urine Bilirubin Urine Urobilinogen Ur Leukocyte Esterase Urine RBC Urine WBC Ur Epithelial Cells Urine Crystals Urine Bacteria Urine Mucus Urine Other Ur Culture Indicated? Urine Glucose Acetaminophen COVID-19 Source SARS-CoV-2 (PCR) 07/20/22 07/20/22 07/20/22 05:50 05:50 05:50 WBC RBC Hgb Hct MCV MCH MCHC RDW Plt Count MPV Immature Gran % Neutrophils % Lymphocytes % Monocytes % Eosinophils % Basophils % Nucleated RBC % Absolute Neutrophils Absolute Lymphocytes Absolute Monocytes Absolute Eosinophils Absolute Basophils PT INR APTT Cancelled Sodium 139 Potassium 2.9 L Chloride 99 Carbon Dioxide 29.9 Anion Gap 10.1 BUN 18 Creatinine 1.2 H Est GFR (CKD-EPI 2020) 48.70 Glucose 125 H Calcium 9.7 Magnesium Total Bilirubin 0.4 AST 17 ALT 29 Alkaline Phosphatase 105 Troponin I NT-Pro-B Natriuret Pep Total Protein 8.3 H Albumin 4.0 Lipase Urine Color Urine Clarity Urine pH Ur Specific Umbarger Urine Protein Urine Ketones Urine Blood Urine Nitrite Urine Bilirubin Urine Urobilinogen Ur Leukocyte Esterase Urine RBC Urine WBC Ur Epithelial Cells Urine Crystals Urine Bacteria Urine Mucus Urine Other Ur Culture Indicated? Urine Glucose Acetaminophen Cancelled COVID-19 Source SARS-CoV-2 (PCR) 07/20/22 07/20/22 07/20/22 05:50 05:50 05:51 WBC RBC Hgb Hct MCV MCH MCHC RDW Plt Count MPV Immature Gran % Neutrophils % Lymphocytes % Monocytes % Eosinophils % Basophils % Nucleated RBC % Absolute Neutrophils Absolute Lymphocytes Absolute Monocytes Absolute Eosinophils Absolute Basophils PT INR APTT Sodium Potassium Chloride Carbon Dioxide Anion Gap BUN Creatinine Est GFR (CKD-EPI 2020) Glucose Calcium Magnesium 2.1 Total Bilirubin AST ALT Alkaline Phosphatase Troponin I < 50 NT-Pro-B Natriuret Pep Total Protein Albumin Lipase Urine Color Urine Clarity Urine pH Ur Specific Umbarger Urine Protein Urine Ketones Urine Blood Urine Nitrite Urine Bilirubin Urine Urobilinogen Ur Leukocyte Esterase Urine RBC Urine WBC Ur Epithelial Cells Urine Crystals Urine Bacteria Urine Mucus Urine Other Ur Culture Indicated? Urine Glucose Acetaminophen COVID-19 Source Nasal/Nares SARS-CoV-2 (PCR) Negative 07/20/22 07/20/22 07/20/22 06:19 08:47 14:50 WBC RBC Hgb Hct MCV MCH MCHC RDW Plt Count MPV Immature Gran % Neutrophils % Lymphocytes % Monocytes % Eosinophils % Basophils % Nucleated RBC % Absolute Neutrophils Absolute Lymphocytes Absolute Monocytes Absolute Eosinophils Absolute Basophils PT INR APTT Sodium Potassium Chloride Carbon Dioxide Anion Gap BUN Creatinine Est GFR (CKD-EPI 2020) Glucose Calcium Magnesium Total Bilirubin AST ALT Alkaline Phosphatase Troponin I < 50 NT-Pro-B Natriuret Pep Total Protein Albumin Lipase Urine Color Yellow Urine Clarity Cloudy Urine pH 6.0 Ur Specific Umbarger 1.010 Urine Protein Negative Urine Ketones Negative Urine Blood Trace-intact H Urine Nitrite Positive H Urine Bilirubin Negative Urine Urobilinogen 0.2 Ur Leukocyte Esterase Negative Urine RBC 0-2 Urine WBC 3-5 Ur Epithelial Cells Moderate Urine Crystals Negative Urine Bacteria Many Urine Mucus Trace Urine Other Ur Culture Indicated? No/Sq. Contamination Urine Glucose Negative Acetaminophen Cancelled COVID-19 Source SARS-CoV-2 (PCR) Last Vital Signs Temp 37.3 C 07/20/22 15:59 Pulse 82 07/20/22 15:59 Resp 16 07/20/22 15:59 BP 109/70 07/20/22 15:59 Pulse Ox 96 07/20/22 15:59
[2022-07-20] MEDS: Lactated Ringers 500 ML IV (19:56)
[2022-07-20] MEDS: Colchicine 0.6 MG TAB PO (21:15)
[2022-07-21] VITALS (9 sets, daily range): BP systolic 104–139; BP diastolic 65–84; PULSE 78–90; RESP 14–84; TEMP 37.1–37.8; O2SAT 90–96
--- NOTE | 2022-07-21 | DI.RAD_ITS ---
Exam(s) XR PORTABLE CHEST AP EXAM: XR PORTABLE CHEST AP CLINICAL HISTORY: ?CHF. TECHNIQUE: 2D digital imaging was performed. COMPARISON: CR CHEST 2 VIEWS PA,LAT from 03/14/2010 FINDINGS: Single AP portable view. Heart size is upper normal. The mediastinum is not widened. Lungs are clear. No infiltrates nor obvious pleural effusions. IMPRESSION: No acute pulmonary findings on this single AP portable view of the chest. DATA REPOSITORY: RADIATION DOSE DELIVERED:
[2022-07-21] MEDS: MORPHine 4 MG/ML SYR IVP ×4 (00:47→18:28)
[2022-07-21] MEDS: Heparin 5,000 UNITS/ML VIAL 5000 UNITS SC ×3 (02:42→18:06)
[2022-07-21 06:12] LABS: Abs Immature Grans 0.02 10^3/uL (0.0-0.06); Absolute Basophil Count 0.07 10^3/uL (0.0-0.2); Absolute Lymphocyte Count 4.16 10^3/uL (1.2-3.4); Absolute Monocyte Count 0.71 10^3/uL (0.1-0.8); Basophils % 0.6; Eosinophils % 1.7; HCT 35.6 % (36.0-46.0); HGB 12.2 g/dL (11.2-15.7); Immature Grans % 0.2; Lymphocytes % 34.6; MCH 30.4 pg (27.0-33.0); MCHC 34.3 % (32.0-36.0); MCV 89 fL (80-95); MPV 9.5 fL (8.0-11.0); Monocytes % 5.9; Platelet Count 363 10^3/uL (130-400); RBC 4.01 10^6/uL (3.93-5.22); RDW 12.7 % (11.7-14.6); RDW-SD 41.8 fL; WBC 12.01 10^3/uL (4.4-10.8)
[2022-07-21 06:15] LABS: Absolute Neutrophil Count 6.85 10^3/uL (1.2-6.7)
[2022-07-21 06:34] LABS: Anion Gap 7.3 mmol/L (3-11); BUN 18 mg/dL (7-18); CO2 25.7 mmol/L (21.0-32.0); CREATININE 1.1 mg/dL (0.55-1.02); Chloride 101 mmol/L (98-107); Estimated GFR 54.06 (mL/min/1.73m2); Glucose 106 mg/dL (74-106); Potassium 3.9 mmol/L (3.5-5.1); Sodium 134 mmol/L (136-145)
--- NOTE | 2022-07-21 08:43 | PDOC.CMIN ---
- If Service Date Differs Date of service: 07/21/22 Time of Service: 08:43 Care Management Initial Assess REASON FOR HOSPITALIZATION:: Chest Pain, Rule Out IL, Hypokalemia. PAST MEDICAL HISTORY/PAST SURGICAL HISTORY:: All Active Problems: DVT prophylaxis (Acute), Hypokalemia (Acute),. Leukocytosis (Acute), Chest pain (Acute), Incidental pulmonary nodule (Acute), Sessile colonic polyp (Acute), Encounter for routine gynecological examination (Acute 10/28/14) - Pap/hpv done - recommend continuing yearly mammograms - advised re colonoscopy recommendations and benefits, and Cystocele (Acute). Medical History: Allergic asthma, Asthma, 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), Depression, History of hypertension, History of malignant neoplasm of breast, History of pericarditis, Hyperlipidemia, Hypertension,. Left bundle branch block, Radiculopathy, and Restless leg syndrome. Surgical History: Appendectomy (~1970), Biopsy of breast - L breast benign 1994, Cholecystectomy - 1979 secondary to benign tumor no stones , History of cataract surgery, History of cholecystectomy, History of colonoscopy (~10/2021), Ligation of fallopian tube - 1977, S/P cervical spinal fusion, S/P coronary angiogram - 10 years ago per patient, and. Tonsillectomy (~1960). PREVIOUS FUNCTIONAL STATUS/SOCIAL/FAMILY SUPPORTS:: Radha lives in [place] with her Ottoniel and their dog Christiano. 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 She has 2 children: her son, Bernard, lives independently in [place] but he is on disability and has a part-time caregiver and her daughter, Mariya, lives in [place] with her who is retired . Radha shares she and Ottoniel are planning a trip to the [facility] in October to visit their daughter. Radha drives and is independent at baseline. CURRENT FUNCTIONAL STATUS:: Radha is sitting up in bed when CM comes by to see her. She is pleasant and easily engages in conversation. She reports ongoing chest pain and says she is relieved a heart attack has been ruled out. She says she has a low grade fever this morning and questions whether pleurisy may be the cause of her pain. ADVANCE DIRECTIVES:: On file; Ottoniel Chowdhury is appointed as HCA; daughter Mariya Hamlin is alternate. Has patient been provided with info about the portal/API?: Yes Did the patient sign up for the portal?: Yes (Previously enrolled) CODE STATUS:: Full Code INSURANCE COVERAGE / FINANCIAL ISSUES:: BCBS of [place] and Medicare. CURRENT HOME/COMMUNITY SERVICES/EQUIPMENT:: None. PRIMARY CARE PHYSICIAN:: SABRINA Pitt. POTENTIAL DISCHARGE NEEDS:: Follow up appointment with PCP. PATIENT/FAMILY EDUCATION NEEDS:: Review of discharge instructions including medications and limitations; discuss Ask Me Three. ANTICIPATED BARRIERS TO DISCHARGE:: None identified at this time. TRANSPORTATION:: Via private vehicle with Ottoniel. PLAN:: Radha will discharge home with no services when medically cleared by provider. She will follow up with her PCP and plan of care as instructed. She will be driven home by her via private vehicle when ready. CM will continue to support Radha and any discharge planning needs.
[2022-07-21] MEDS: Potassium Chloride 20 MEQ TABCR PO ×2 (08:45→19:23)
[2022-07-21] MEDS: Colchicine 0.6 MG TAB PO ×2 (08:45→19:22)
[2022-07-21] MEDS: Pantoprazole 40 MG TABCR PO (08:52)
[2022-07-21] MEDS: Normal Saline Flush 10 ML SYR (10:28)
[2022-07-21 11:25] LABS: Lab Add On Test DONE
[2022-07-21 11:56] LABS: C-Reactive Protein 22.24 mg/dL (0.0-0.3); Magnesium 2.2 mg/dL (1.8-2.4)
[2022-07-21 12:16] LABS: ESR 61 mm/hr (0-30)
[2022-07-21 12:20] LABS: Procalcitonin 0.1 ng/mL
[2022-07-21] MEDS: Normal Saline Flush 10 ML SYR IVP ×2 (14:11→18:28)
--- NOTE | 2022-07-21 16:17 | PGE_ITS ---
Date of Service Date of service: 07/21/22 Time of Service: 16:17 Assessment and Plan Assessment and plan (1) Chest pain: Status: Acute Assessment and plan: In setting of h/o pericarditis and elevated CRP, I agree that the CP is likely due to recurrent pericarditis. Continue colchicine and prn morphine. Await echocardiogram. Monitor on tele. Obtain pro BNP, CXR as now has crackles. (2) Hypertension: Assessment and plan: Start chlorthalidone while monitoring potassium. (3) Asthma: Assessment and plan: Not in acute exacerbation. Continue PRN albuterol. (4) Hyperlipidemia: Assessment and plan: Continue atorvastatin. (5) Restless leg syndrome: Assessment and plan: Continue ropinirole. (6) Leukocytosis: Status: Acute Assessment and plan: Suspect this is due to pericarditis. No UTI with a negative leucocyte esterase. Procalcitonin negative. No role for abx at this time. (7) Hypokalemia: Status: Resolved Assessment and plan: Recheck in am (8) DVT prophylaxis: Status: Acute Assessment and plan: SQ heparin. (9) Discharge planning issues: Status: Acute Assessment and plan: Full code Anticipate discharge home on Saturday after echo Subjective Subjective Interval history since last seen: Ms Chowdhury states she is feeling a little bit better. She states she has been feeling tired. Chest pain is getting better - and the intervals between requiring morphine are getting longer. The chest pain is substernal and radiating to both sounds of the chest, the back and up, but not to the jaw. Denies dizziness, shortness of breath, nausea, diarrhea. Exam Narrative Exam Narrative: General: Pleasant female who is resting comfortably in bed, A&Ox3, NAD HEENT: EOMI, MMM Heart: RRR, no m/r/g Lungs: crackles at B bases Abdomen: soft, nontender, nondistended Extremities: no edema BLEs Objective Last Vital Signs Temp 37.2 C 07/21/22 15:06 Pulse 80 07/21/22 15:06 Resp 18 07/21/22 15:06 BP 120/81 07/21/22 15:06 Pulse Ox 90 L 07/21/22 15:06 Laboratory Results - last 24 hr 11/11/22 11/12/22 11/12/22 14:50 05:50 05:50 WBC 12.01 H RBC 4.01 Hgb 12.2 Hct 35.6 L MCV 89 MCH 30.4 MCHC 34.3 RDW 12.7 Plt Count 363 MPV 9.5 Immature Gran % 0.2 Neutrophils % 57.0 Lymphocytes % 34.6 Monocytes % 5.9 Eosinophils % 1.7 Basophils % 0.6 Nucleated RBC % 0.0 Absolute Neutrophils 6.85 H Absolute Lymphocytes 4.16 H Absolute Monocytes 0.71 Absolute Eosinophils 0.20 Absolute Basophils 0.07 ESR Sodium 134 L Potassium 3.9 D Chloride 101 Carbon Dioxide 25.7 Anion Gap 7.3 BUN 18 Creatinine 1.1 H Est GFR (CKD-EPI 2020) 54.06 Glucose 106 Calcium 9.0 Magnesium C-Reactive Protein Procalcitonin Urine Color Yellow Urine Clarity Cloudy Urine pH 6.0 Ur Specific [place] 1.010 Urine Protein Negative Urine Ketones Negative Urine Blood Trace-intact H Urine Nitrite Positive H Urine Bilirubin Negative Urine Urobilinogen 0.2 Ur Leukocyte Esterase Negative Urine RBC 0-2 Urine WBC 3-5 Ur Epithelial Cells Moderate Urine Crystals Negative Urine Bacteria Many Urine Mucus Trace Urine Other Ur Culture Indicated? No/Sq. Contamination Urine Glucose Negative Add-On Test Request 07/21/22 07/21/22 07/21/22 05:50 05:50 05:50 WBC RBC Hgb Hct MCV MCH MCHC RDW Plt Count MPV Immature Gran % Neutrophils % Lymphocytes % Monocytes % Eosinophils % Basophils % Nucleated RBC % Absolute Neutrophils Absolute Lymphocytes Absolute Monocytes Absolute Eosinophils Absolute Basophils ESR Sodium Potassium Chloride Carbon Dioxide Anion Gap BUN Creatinine Est GFR (CKD-EPI 2020) Glucose Calcium Magnesium 2.2 C-Reactive Protein 22.24 H Procalcitonin 0.1 Urine Color Urine Clarity Urine pH Ur Specific [place] Urine Protein Urine Ketones Urine Blood Urine Nitrite Urine Bilirubin Urine Urobilinogen Ur Leukocyte Esterase Urine RBC Urine WBC Ur Epithelial Cells Urine Crystals Urine Bacteria Urine Mucus Urine Other Ur Culture Indicated? Urine Glucose Add-On Test Request DONE 07/21/22 05:50 WBC RBC Hgb Hct MCV MCH MCHC RDW Plt Count MPV Immature Gran % Neutrophils % Lymphocytes % Monocytes % Eosinophils % Basophils % Nucleated RBC % Absolute Neutrophils Absolute Lymphocytes Absolute Monocytes Absolute Eosinophils Absolute Basophils ESR 61 H Sodium Potassium Chloride Carbon Dioxide Anion Gap BUN Creatinine Est GFR (CKD-EPI 2020) Glucose Calcium Magnesium C-Reactive Protein Procalcitonin Urine Color Urine Clarity Urine pH Ur Specific [place] Urine Protein Urine Ketones Urine Blood Urine Nitrite Urine Bilirubin Urine Urobilinogen Ur Leukocyte Esterase Urine RBC Urine WBC Ur Epithelial Cells Urine Crystals Urine Bacteria Urine Mucus Urine Other Ur Culture Indicated? Urine Glucose Add-On Test Request
--- NOTE | 2022-07-21 17:29 | DI.VRAD_ITS ---
PROCEDURE INFORMATION: Exam: XR Chest Exam date and time: 07/21/2022 4:50 PM Age: 72 years old Clinical indication: Pain; Chest pressure; Additional info: ? Chf TECHNIQUE: Imaging protocol: Radiologic exam of the chest. Views: 1 view. COMPARISON: CT CHEST PE CTA 07/20/2022 7:05 AM FINDINGS: Lungs: Again noted is focal mild airspace opacity within the medial right lung base, which is seen to represent atelectasis on the prior study. There is also minimal subsegmental atelectasis at the left lung base, unchanged. Lungs otherwise clear. There is no pulmonary vascular congestion. Pleural spaces: There are no pleural effusions present. There is no evidence of pneumothorax. Heart/Mediastinum: The cardiomediastinal silhouette is within normal limits. Bones/joints: Unremarkable. IMPRESSION: No active cardiopulmonary disease identified. Dictated and Authenticated by: Bernard Davila MD. Ordering:SEAN Lui MD
[2022-07-21 18:05] LABS: Lab Add On Test DONE
[2022-07-21 18:24] LABS: NT-proBNP 436 pg/mL (<300)
[2022-07-21] MEDS: Atorvastatin 20 MG TAB PO (19:22)
[2022-07-21] MEDS: rOPINIRole 0.5 MG TAB 1.5 MG PO (22:12)
[2022-07-22] VITALS (8 sets, daily range): BP systolic 113–144; BP diastolic 56–81; PULSE 71–80; RESP 12–19; TEMP 36.4–37; O2SAT 94–98
[2022-07-22] MEDS: MORPHine 4 MG/ML SYR IVP (00:35)
[2022-07-22] MEDS: Normal Saline Flush 10 ML SYR IVP (00:36)
[2022-07-22] MEDS: Heparin 5,000 UNITS/ML VIAL 5000 UNITS SC ×3 (02:33→18:26)
[2022-07-22 06:29] LABS: Abs Immature Grans 0.04 10^3/uL (0.0-0.06); Absolute Basophil Count 0.07 10^3/uL (0.0-0.2); Absolute Eosinophil Count 0.29 10^3/uL (0.0-0.7); Absolute Lymphocyte Count 3.81 10^3/uL (1.2-3.4); Absolute Monocyte Count 0.75 10^3/uL (0.1-0.8); Absolute Neutrophil Count 5.92 10^3/uL (1.2-6.7); Basophils % 0.6; Eosinophils % 2.7; HCT 36.2 % (36.0-46.0); HGB 11.7 g/dL (11.2-15.7); Immature Grans % 0.4; MCH 29.8 pg (27.0-33.0); MCHC 32.3 % (32.0-36.0); MCV 92 fL (80-95); MPV 9.9 fL (8.0-11.0); Monocytes % 6.9; Neutrophils % 54.4; Platelet Count 370 10^3/uL (130-400); RBC 3.93 10^6/uL (3.93-5.22); RDW 12.7 % (11.7-14.6); RDW-SD 43.2 fL; WBC 10.88 10^3/uL (4.4-10.8)
[2022-07-22 06:48] LABS: C-Reactive Protein 6.45 mg/dL (0.0-0.3)
[2022-07-22 06:54] LABS: BUN 14 mg/dL (7-18); CREATININE 0.9 mg/dL (0.55-1.02); Chloride 102 mmol/L (98-107); Estimated GFR 68.77 (mL/min/1.73m2); Glucose 112 mg/dL (74-106); Magnesium 2.1 mg/dL (1.8-2.4); Potassium 4.1 mmol/L (3.5-5.1); Sodium 137 mmol/L (136-145)
[2022-07-22] MEDS: Colchicine 0.6 MG TAB PO ×2 (08:47→19:26)
[2022-07-22] MEDS: Chlorthalidone 25 MG TAB 12.5 MG PO (08:47)
[2022-07-22] MEDS: Pantoprazole 40 MG TABCR PO (08:47)
[2022-07-22] MEDS: Potassium Chloride 20 MEQ TABCR PO ×2 (08:47→19:26)
[2022-07-22] MEDS: oxyCODONE 5 mg/Acetaminophen 325 mg TAB 1 TAB PO ×2 (11:47→19:27)
--- NOTE | 2022-07-22 17:43 | W.PM.PROGNOT ---
Date of Service Date of service: 07/22/22 Time of Service: 17:43 Assessment and Plan Assessment and plan (1) Chest pain: Status: Acute Assessment and plan: In setting of h/o pericarditis and elevated CRP, I agree that the CP is likely due to recurrent pericarditis. Continue colchicine as both leucocytosis and the CRP are improving. Await echocardiogram tomorrow. Monitor on tele. No CHF on imaging and crackles were probably due to atelectasis rather than CHF. (2) Hypertension: Assessment and plan: continue chlorthalidone while monitoring potassium. (3) Asthma: Assessment and plan: Not in acute exacerbation. Continue PRN albuterol. (4) Hyperlipidemia: Assessment and plan: Continue atorvastatin. (5) Restless leg syndrome: Assessment and plan: Continue ropinirole. (6) Leukocytosis: Status: Acute Assessment and plan: Suspect this is due to pericarditis. Improving. No UTI with a negative leucocyte esterase. Procalcitonin negative. No role for abx at this time. (7) Hypokalemia: Status: Resolved Assessment and plan: Recheck in am (8) DVT prophylaxis: Status: Acute Assessment and plan: SQ heparin. (9) Discharge planning issues: Status: Acute Assessment and plan: Full code Anticipate discharge home tomorrow after echo Subjective Subjective Interval history since last seen: Ms Chowdhury feels a lot better today. She had one bout of chest pain today which responded to oral pain medications. Denies dizziness, shortness of breath, nausea, or CP right now. Exam Narrative Exam Narrative: General: Pleasant female who is resting comfortably in bed, A&Ox3, NAD HEENT: EOMI, MMM Heart: RRR, no m/r/g Lungs: CTAB - no crackles Abdomen: soft, nontender, nondistended Extremities: no edema BLEs Objective Last Vital Signs Temp 36.5 C 07/22/22 15:19 Pulse 71 07/22/22 15:19 Resp 16 07/22/22 15:19 BP 133/81 07/22/22 15:19 Pulse Ox 98 07/22/22 15:19 Laboratory Results - last 24 hr 07/21/22 07/21/22 07/22/22 05:50 05:50 05:52 WBC RBC Hgb Hct MCV MCH MCHC RDW Plt Count MPV Immature Gran % Neutrophils % Lymphocytes % Monocytes % Eosinophils % Basophils % Nucleated RBC % Absolute Neutrophils Absolute Lymphocytes Absolute Monocytes Absolute Eosinophils Absolute Basophils Sodium 137 Potassium 4.1 Chloride 102 Carbon Dioxide 25.0 Anion Gap 10.0 BUN 14 Creatinine 0.9 Est GFR (CKD-EPI 2020) 68.77 Glucose 112 H Calcium 9.0 Magnesium 2.1 C-Reactive Protein NT-Pro-B Natriuret Pep 436 H Add-On Test Request DONE 07/22/22 07/22/22 05:52 05:52 WBC 10.88 H RBC 3.93 Hgb 11.7 Hct 36.2 MCV 92 MCH 29.8 MCHC 32.3 RDW 12.7 Plt Count 370 MPV 9.9 Immature Gran % 0.4 Neutrophils % 54.4 Lymphocytes % 35.0 Monocytes % 6.9 Eosinophils % 2.7 Basophils % 0.6 Nucleated RBC % 0.0 Absolute Neutrophils 5.92 Absolute Lymphocytes 3.81 H Absolute Monocytes 0.75 Absolute Eosinophils 0.29 Absolute Basophils 0.07 Sodium Potassium Chloride Carbon Dioxide Anion Gap BUN Creatinine Est GFR (CKD-EPI 2020) Glucose Calcium Magnesium C-Reactive Protein 6.45 H NT-Pro-B Natriuret Pep Add-On Test Request Objective Narrative Objective Narrative: CXR: No acute pulmonary findings on this single AP portable view of the chest.
[2022-07-22] MEDS: Atorvastatin 20 MG TAB PO (19:26)
[2022-07-22] MEDS: rOPINIRole 0.5 MG TAB 1.5 MG PO (21:40)
[2022-07-23] VITALS: PULSE 73
[2022-07-23] MEDS: Heparin 5,000 UNITS/ML VIAL 5000 UNITS SC ×2 (02:05→09:48)
[2022-07-23 03:01] VITALS: BP 138/83; PULSE 66; RESP 14; TEMP 36; O2SAT 97
[2022-07-23 06:44] LABS: Abs Immature Grans 0.04 10^3/uL (0.0-0.06); Absolute Basophil Count 0.06 10^3/uL (0.0-0.2); Absolute Eosinophil Count 0.32 10^3/uL (0.0-0.7); Absolute Lymphocyte Count 3.21 10^3/uL (1.2-3.4); Absolute Monocyte Count 0.63 10^3/uL (0.1-0.8); Absolute Neutrophil Count 5.98 10^3/uL (1.2-6.7); Basophils % 0.6; Eosinophils % 3.1; HCT 40.2 % (36.0-46.0); HGB 12.9 g/dL (11.2-15.7); Immature Grans % 0.4; Lymphocytes % 31.3; MCH 29.9 pg (27.0-33.0); MCHC 32.1 % (32.0-36.0); MCV 93 fL (80-95); MPV 9.4 fL (8.0-11.0); Monocytes % 6.2; Neutrophils % 58.4; Platelet Count 445 10^3/uL (130-400); RBC 4.31 10^6/uL (3.93-5.22); RDW 12.6 % (11.7-14.6); RDW-SD 43.9 fL; WBC 10.24 10^3/uL (4.4-10.8)
[2022-07-23 06:53] LABS: Anion Gap 5.4 mmol/L (3-11); BUN 19 mg/dL (7-18); C-Reactive Protein 7.52 mg/dL (0.0-0.3); CO2 30.6 mmol/L (21.0-32.0); CREATININE 1.2 mg/dL (0.55-1.02); Calcium 9.2 mg/dL (8.5-10.1); Chloride 102 mmol/L (98-107); Glucose 111 mg/dL (74-106); Magnesium 2.2 mg/dL (1.8-2.4); Potassium 4.4 mmol/L (3.5-5.1); Sodium 138 mmol/L (136-145)
[2022-07-23 07:00] VITALS: PULSE 81
[2022-07-23 07:20] VITALS: BP 122/79; PULSE 68; RESP 16; TEMP 36.3; O2SAT 97
--- NOTE | 2022-07-23 08:00 | DI.US_ITS ---
APPROVED REPORT EXAM: Comprehensive 2D, Doppler, and color-flow Echocardiogram Patient Location: In-Patient Room/Bed: [address] Presser: Lizbeth Barclay RDCS (AE) Indications: Pericarditis, Chest pain, HTN Other Information Study Quality: Adequate Conclusion Normal left ventricular wall thickness and chamber size. Estimated ejection fraction is 55%. Wall m otion is normal Normal right ventricular size and systolic function Both atria are normal in size Mitral annular calcification. Trace mitral regurgitation Estimated right ventricular systolic pressure is normal at 23 mmHg Mildly dilated ascending aorta measuring 3.51 cm No pericardial effusion Wall motion Left Ventricle The left ventricle is normal size. The left ventricular systolic function is normal. The left ventric ular ejection fraction is within the normal range. There is normal left ventricular wall thickness. T here is normal LV segmental wall motion. There is no ventricular septal defect visualized. LVEF is 55 %. Right Ventricle The right ventricle is normal size. The right ventricular systolic function is normal. The RVSP is 23 .0mmHg. Atria The left atrium size is normal. The right atrium size is normal. The interatrial septum is intact wit h no evidence for an atrial septal defect. Aortic Valve The aortic valve is normal in structure. Aortic valve is trileaflet. There is no aortic valvular sten osis. No aortic regurgitation is present. Mitral Valve There is mitral annular calcification. No evidence of mitral valve stenosis. Trace mitral regurgitati on. Tricuspid Valve The tricuspid valve is normal in structure. There is no tricuspid valve stenosis. Trace to mild tricu spid regurgitation. Pulmonic Valve The pulmonary valve is normal in structure. There is no pulmonic valvular stenosis. There is no pulmo vicente valvular regurgitation. Great Vessels The aortic root is normal in size. The ascending aorta is mildly dilated. Aortic arch is normal in ca liber. IVC is normal in size and collapses >50% with inspiration. Pericardium There is no pericardial effusion. 2D Dimensions IVSD d PLAX 0.94 cm F: 0.6-1.0 LV Vol A2C d MOD 71.3 mL LVPW d PLAX 0.95 cm F: 0.6 - 1.0 LV Vol A4C d MOD 81.7 mL LVID d PLAX 4.25 cm F: 3.8 - 5.2 LA vol/ BSA A2C s A-L 16.4 mL/m2 LVDs 3.10 cm F: 2.2 - 3.5 LA vol/ BSA A4C s A-L 21.4 mL/m2 Ao Root d 2.66 cm F: 2.7 - 3.3 LA Vol/ BSA Biplane s A-L 19.1 mL/m2 RA Area A4C 15.45 cm2 LA Area A4C s MOD 15.11 cm2 RA Vol/ BSA A4C s A-L 22.7 mL/m2 LA Area A2C s MOD 12.98 cm2 Ao Asc Diam d 3.51 cm F: 2.3 - 3.1 LV EF A4C MOD 55.5 % LV EF Teichholz 52.5 % LV EF A2C MOD 55.3 % LVEF (Dong's) 57.66 % F: 54 - 74 LV EF Biplane MOD 57.7 % LV Volume 62.45 mL F: 46 - 106 SV 47.00 mL LV Volume Index 33.21 mL/m2 F: 29 - 61 SV Index 25.02 mL/m2 LV Vol Biplane MOD 81.5 mL FS 26.70 % M-Mode TAPSE 1.60 cm (M/F) >1.7 LV Diastology MV E' medial 0.099 (>0.07 m/s) E/A Ratio 0.7 LV E/e MED 6.65 (<14) MV E Vmax 0.66 (0.4-1.3 m/s) MV E' lateral 0.088 (>0.1 m/s) MV A Vmax 0.95 (0.4-1.3 m/s) LV E/e LAT 7.50 (<14) MV E/A Ratio 0.67 MV E/E' medial 6.68 MV E/E' lateral 7.55 Aortic Valve LVOT Area 3.43 cm2 AoV Area Vmax 2.69 cm2 LVOT Vmax 1.20 m/s AoV Area/ BSA (Vmax) 1.43 cm2/m2 LVOT Mean Onur. 0.81 m/s TOBY Mean Onur. 2.43 cm2 LVOT Peak Grad 5.7 mmHg TOBY Mean Onur. Index 1.29 cm2/m2 LVOT Mean Grad 3.0 mmHg LVOT VTI 0.213 m LVOT Diam s 2.05 cm AoV Vmax 1.53 m/s Velocity Ratio 0.78 AoV Mean Onur. 1.15 m/s AoV Peak Grad 9.3 mmHg LVOT SV 73.16 mL AoV Mean Grad 5.7 mmHg AoV VTI 0.264 m AoV Area VTI 2.77 cm2 AoV Area/ BSA (VTI) 1.47 cm/m2 Mitral Valve MV DT 326 (160-240 msec) MV PHT 95 msec MV Area PHT 2.33 cm2 MV VTI 0.277 m MV Area VTI 2.65 (4.0-6.0 cm2) Pulmonary Valve PV Vmax 1.04 (0.5-1.5 m/s) RVOT Peak Gr. 3.45 mmHg PV Peak Grad 4.4 mmHg RVOT Mean Gr. 1.30 mmHg PV Mean Grad 2.4 mmHg RVOT VTI 0.115 m PV VTI 0.168 m RVOT Vmax 0.93 m/s Tricuspid Valve TR Peak Grad 20.0 mmHg TR Vmax 2.24 m/s RA Pressure 3.00 mmHg RVSP (TR) 23.0 mmHg
[2022-07-23] MEDS: Chlorthalidone 25 MG TAB 12.5 MG PO (08:05)
[2022-07-23] MEDS: Colchicine 0.6 MG TAB PO (08:05)
[2022-07-23] MEDS: Normal Saline Flush 10 ML SYR IVP (08:06)
[2022-07-23] MEDS: Potassium Chloride 20 MEQ TABCR PO (08:06)
[2022-07-23] MEDS: Pantoprazole 40 MG TABCR PO (08:06)
[2022-07-23 09:43] VITALS: BP 123/76; PULSE 74; RESP 16; TEMP 36.3; O2SAT 97
[2022-07-23] MEDS: oxyCODONE 5 mg/Acetaminophen 325 mg TAB 1 TAB PO (09:46)
[2022-07-23 12:07] VITALS: BP 124/81; PULSE 68; RESP 16; TEMP 37.1; O2SAT 96
--- NOTE | 2022-07-23 15:03 | W.PM.DS.N ---
Date of service: 07/23/22 Time of Service: 15:03 DS: Diagnosis Discharge Diagnosis (1) Pericarditis: Status: Acute (2) Chest pain: Status: Acute (3) Leukocytosis: Status: Acute (4) Hypertension: (5) Asthma: (6) Hyperlipidemia: (7) Restless leg syndrome: (8) Hypokalemia: Status: Resolved (9) Incidental pulmonary nodule: Status: Acute Discharge Plan Disposition Patient Disposition: HOME Condition: Stable Discharge Details Reason For Visit: Chest Pain Rule Out [place],Hypokalemia Admit Date/Time: 07/20/22 09:34 Admit Provider: Royer Espino Attending Provider: Royer Espino Primary Care Provider: Kedar Rankin Hospital Course Hospital Course: Ms Chowdhury is a 72 year old female with PMHx of prior episode of pericarditis as well as h/o hypertension, hyperlipidemia, RLS who was observed on [facility] hospitalist service from 07/20/22 until 07/23/22 for chest pain. She ruled out for ACS, aortic dissection, or PE. She did have evidence of leucocytosis and elevated CRP and no infectious source. She was empirically placed on colchicine with resolution of leucocytosis and a significant improvement in CRP and, most importantly, her chest pain, suggesting that the symptoms were, in fact, due to pericarditis. She underwent an echocardiogram which ruled out a pericardial effusion. She is being discharged home today with a prescription for colchicine, a 3 day supply of prn percocet (and prn naloxone). She should follow up with her PCP and with cardiology. She will need bloodwork in 1 week (was hypokalemic presumably due to being on a thiazide diuretic). She will need to have a repeat CT of her chest in 3 months as she was found to have a 6 mm pulmonary nodule in her RUL. Home Meds and New Rx's Prescriptions: New oxycodone-acetaminophen 5-325 mg Tablet 1 tab PO Q6H PRN PRNQty: 12 0RF potassium chloride [Klor-Con M20] 20 mEq Tablet,Er Particles/Crystals 20 meq PO DAILY Qty: 7 0RF colchicine [Colcrys] 0.6 mg Tablet 0.6 mg PO BID Qty: 28 0RF naloxone [Narcan] 4 mg/actuation spray,non-aerosol 4 mg intranasal Q3M PRNQty: 2 0RF Rx Instructions: spray 1 dose into ONE nostril; alternate nostrils w each dose until help arrives Continued albuterol sulfate [ProAir HFA] 90 mcg/actuation HFA aerosol inhaler 2 puff inhalation Q6H PRN ropinirole 1 mg tablet 1.5 mg PO DAILY atorvastatin 20 mg tablet 20 mg PO DAILY Changed chlorthalidone 25 mg tablet 12.5 mg PO DAILY Qty: 0 0RF Discontinued hydrochlorothiazide 25 mg tablet 1 tab PO DAILY Discharge Instructions Instructions: Colchicine (By mouth), Acute Pericarditis (DC) Additional Instructions: Return to the hospital with any fever, bleeding, worsening chest pain, or shortness of breath. Follow up with your PCP in 1-2 weeks. Please follow-up in 6 months for repeat imaging of your nodule that was noted in your chest. Bloodwork in 1 week. Stand Alone Forms: Nursing Discharge Form Referrals: Kedar Rankin [Primary Care Provider] - 08/07/22 11:00 am Nikkie Lomeli MD [ [facility] STAFF PHYSICIAN] - (pericarditis A nurse will call you with an appointment ) Activity:: Activity as Tolerated Equipment/Supplies:: No Equipment Needed Diet:: As Tolerated Discharge Orders Discharge Orders: Discharge Order (Routine); Ordered 07/23/22 Ordered By: Sania Woodard Other Ambulatory Orders: Basic Metabolic Panel (Routine) Timeframe: 20220730 Facility: [facility] - Location: Laboratory Outpatient - [facility] Ordered By: Sania Woodard C-Reactive Protein (Routine) Timeframe: 20220730 Facility: [facility] - Location: Laboratory Outpatient - [facility] Ordered By: Sania Woodard Discharge Data Discharge Date/Time-TO BE ENTERED AT DEPARTURE: 07/23/22 15:44 DS: Summary Time Spent with Patient providing and/or coordinating discharge services: Greater than 30 minutes Status at Discharge Functional status at discharge: independent ambulation Overall status at discharge: patient is progressing back to baseline Mental Status: mental status grossly normal Speech and Movement: speech and movement normal Mood: congruent mood Affect: normal affect Exam Narrative Exam Narrative: Patient seen in a wheelchair in the hallway on her way to the [place] A&Ox3 appeared comfortable No resp. distres. Psych Mental Status: mental status grossly normal Speech and Movement: speech and movement normal Mood: congruent mood Affect: normal affect DS: Data Vitals/I&O Vitals and I&O: Vital Signs Temperature 37.1 C 07/23/22 12:07 Temperature Source Tympanic 07/23/22 12:07 Pulse 68 07/23/22 12:07 Pulse Rhythm Regular 07/23/22 07:10 Pulse 74 07/20/22 10:21 Respiratory Rate 16 07/23/22 12:07 Respiratory Effort 07/23/22 07:10 Respiratory Depth Normal 07/23/22 07:10 Respiratory Pattern Normal 07/23/22 07:10 Blood Pressure 124/81 07/23/22 12:07 Blood Pressure Mean 90 07/20/22 10:20 Blood Pressure Position Supine 07/20/22 05:42 Pulse Oximetry 96 07/23/22 12:07 Oxygen Delivery Method Room Air 07/23/22 12:07 Oxygen Flow Rate 0 07/23/22 12:07 Pain Level 4 07/23/22 12:07 Comment 07/21/22 22:23 Intake & Output 07/22/22 07/23/22 07/23/22 23:59 11:59 23:59 Intake Total 1030 / 1700 250 / 730 480 / 730 Balance 1030 / 450 250 / 730 480 / 730 Intake: IV Oral 1030 / 1700 240 / 720 480 / 720 Other: Urine Appearance Clear Clear Comment patient voids independently Voiding Methods Toilet Toilet Data Completed and Pending Completed studies during hospitalization [Text1]: CTA chest 07/20/22; 1. No evidence of acute pulmonary emboli.? No evidence of pulmonary infarction.No pleural effusions. 2. There is a 6 millimeter noncalcified nodule in the right upper lobe.? Recommend follow-up scan in 3 months. CXR 07/21/22: No acute pulmonary findings on this single AP portable view of the chest. Echo 07/23/22: Normal left ventricular wall thickness and chamber size.? Estimated ejection fraction is 55%.? Wall motion is normal Normal right ventricular size and systolic function Both atria are normal in size Mitral annular calcification.? Trace mitral regurgitation Estimated right ventricular systolic pressure is normal at 23 mmHg Mildly dilated ascending aorta measuring 3.51 cm No pericardial effusion Labs on day of discharge: Labs from last 24 hours 07/23/22 07/23/22 06:03 06:03 WBC 10.24 RBC 4.31 Hgb 12.9 Hct 40.2 MCV 93 MCH 29.9 MCHC 32.1 RDW 12.6 Plt Count 445 H MPV 9.4 Immature Gran % 0.4 Neutrophils % 58.4 Lymphocytes % 31.3 Monocytes % 6.2 Eosinophils % 3.1 Basophils % 0.6 Nucleated RBC % 0.0 Absolute Neutrophils 5.98 Absolute Lymphocytes 3.21 Absolute Monocytes 0.63 Absolute Eosinophils 0.32 Absolute Basophils 0.06 Sodium 138 Potassium 4.4 Chloride 102 Carbon Dioxide 30.6 Anion Gap 5.4 BUN 19 H Creatinine 1.2 H Est GFR (CKD-EPI 2020) 48.70 Glucose 111 H Calcium 9.2 Magnesium 2.2 C-Reactive Protein 7.52 H PFSH All Active Problems (Updated 07/23/22 @ 15:05 by Sania Woodard MD) Pericarditis (Acute) Discharge planning issues (Acute) DVT prophylaxis (Acute) Leukocytosis (Acute) Chest pain (Acute) Incidental pulmonary nodule (Acute) Sessile colonic polyp (Acute) Encounter for routine gynecological examination (Acute 10/28/14) Pap/hpv done recommend continuing yearly mammograms advised re colonoscopy recommendations and benefits Cystocele (Acute) Medical History Allergic asthma Asthma 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) Depression History of hypertension History of malignant neoplasm of breast History of pericarditis Hyperlipidemia Hypertension Left bundle branch block Radiculopathy Restless leg syndrome Surgical History Appendectomy (~1970) Biopsy of breast L breast benign 1994 Cholecystectomy 1979 secondary to benign tumor no stones . History of cataract surgery History of cholecystectomy History of colonoscopy (~10/2021) Ligation of fallopian tube 1977 S/P cervical spinal fusion S/P coronary angiogram 10 years ago per patient Tonsillectomy (~1960) Family History Other Diabetes Heart disease Hyperlipidemia Personal history of malignant neoplasm Social History Smoking/Tobacco Use Status: Never Smoking risk assessment performed?: Yes Alcohol Intake: current Alcohol Intake frequency: a few times a week Alcohol type: wine Drug use: Never Substance use type: does not use Do you feel safe at home: Yes Do you feel safe in your relationship?: Yes
--- NOTE | 2022-07-23 18:03 | PDOC.CMDIS ---
- If Service Date Differs Date of service: 07/23/22 Time of Service: 18:03 LACE Index Scoring Tool - Questions: Length of Stay (in days): 3 Acuity (Admit via E.D.?): Yes E.D. Visits: 2 - Answers: Total Score: 8 Risk of Readmission: Low Risk Care Management Discharge Reason for Hospitalization: Chest Pain, Rule Out [place], Hypokalemia. Discharge Plan: Radha will return home with no new services. Her will drive her home via private vehicle. She will follow up with her PCP and discharge plan of care. Patient/Family Education Needs: Review discharge instructions and limitations, discussion of self care needs including ask me three.
== END 2022-07-23 15:44 | disposition home or self-care (01) ==
LOC: ER 10:19 → MS 10:28
PROVIDERS: Internal Medicine; Student in an Organized Health Care Education/Training Program; Admitting Provider Family Medicine; Emergency Provider Student in an Organized Health Care Education/Training Program; PCP Physician Assistant; Visit Provider Family Medicine
DX: I30.9 Acute pericarditis, unspecified (principal); R07.9 Chest pain, unspecified; Z20.822 Contact with and (suspected) exposure to COVID-19; I44.7 Left bundle-branch block, unspecified; I34.81 Nonrheumatic mitral (valve) annulus calcification; E78.00 Pure hypercholesterolemia, unspecified; R91.1 Solitary pulmonary nodule; Z79.899 Other long term (current) drug therapy; J45.909 Unspecified asthma, uncomplicated; E78.5 Hyperlipidemia, unspecified; I10 Essential (primary) hypertension; G25.81 Restless legs syndrome; D72.829 Elevated white blood cell count, unspecified; E87.6 Hypokalemia; F32.A Depression, unspecified; Z85.3 Personal history of malignant neoplasm of breast
CPT/HCPCS: 36415; 71275; 80048; 80053; 83690; 84145; 85652; 87635; 93005; 93306; 96361; 96365; 96366; 96372; 96374; 96375; 99285; 71045; 80329; 81003; 81015; 83735; 83880; 84484; 85025; 85610; 85730; 86140; 93010; 94667; 99217; 99220; 99225; 99226; G0378; J1644; J1885; J2270; J3480; J3490

== ENCOUNTER 2022-07-30 03:03 | Outpatient (CLI) | payer MEDICARE, BC, SELFPAY ==
[2022-07-30 13:31] LABS: Anion Gap 8.6 mmol/L (3-11); BUN 15 mg/dL (7-18); C-Reactive Protein 0.48 mg/dL (0.0-0.3); CO2 28.4 mmol/L (21.0-32.0); CREATININE 1.1 mg/dL (0.55-1.02); Calcium 9.9 mg/dL (8.5-10.1); Chloride 99 mmol/L (98-107); Estimated GFR 54.06 (mL/min/1.73m2); Glucose 90 mg/dL (74-106); Potassium 4.2 mmol/L (3.5-5.1); Sodium 136 mmol/L (136-145)
== END 2022-07-30 03:04 | disposition home or self-care (01) ==
LOC: LBO 03:03
PROVIDERS: Internal Medicine; PCP Physician Assistant; Visit Provider Physician Assistant
DX: E87.6 Hypokalemia (principal); I31.8 Other specified diseases of pericardium
CPT/HCPCS: 36415; 80048; 86140

== ENCOUNTER 2022-08-07 15:42 | Outpatient (REF) | payer MEDICARE, BC, SELFPAY ==
[2022-08-07 16:25] LABS: Anion Gap 8.7 mmol/L (3-11); BUN 21 mg/dL (7-18); CO2 28.3 mmol/L (21.0-32.0); CREATININE 1.1 mg/dL (0.55-1.02); Calcium 10.3 mg/dL (8.5-10.1); Chloride 98 mmol/L (98-107); Estimated GFR 54.06 (mL/min/1.73m2); Glucose 102 mg/dL (74-106); Potassium 3.7 mmol/L (3.5-5.1); Sodium 135 mmol/L (136-145)
== END 2022-08-07 15:43 | disposition home or self-care (01) ==
LOC: NCHCN 15:42
PROVIDERS: PCP Physician Assistant; Visit Provider Physician Assistant
DX: I30.9 Acute pericarditis, unspecified (principal); I10 Essential (primary) hypertension
CPT/HCPCS: 80048; 86140

== ENCOUNTER 2022-08-13 10:20 | Emergency (ER) | payer MEDICARE, BC, SELFPAY ==
[2022-08-13] VITALS (37 sets, daily range): BP systolic 132–178; BP diastolic 70–108; PULSE 71–87; RESP 9–23; O2SAT 95–99
--- NOTE | 2022-08-13 10:15 | RT.EKG_ITS ---
APPROVED REPORT Exam: Resting ECG Reason for Exam: chest pain Patient Location: E HR:74 bpm ECG Measurements Heart Rate [address] 165 P 46 QRSd 142 QRS -31 QT 427 T 145 QTc 474 Conclusion Sinus rhythm...normal P axis, V-rate 60- 99 Left bundle branch block...QRSd>120, broad/notched R
--- NOTE | 2022-08-13 10:35 | ED.GENADUL_ITS ---
Discharge Plan Disposition Patient Disposition: Home Condition: Stable Discharge Details Clinical Impression: Pericarditis, Chest pain Primary Care Provider: Kedar Rankin ED Provider: Zahida Rees Home Meds and New Rx's Prescriptions: New colchicine 0.6 mg tablet 0.6 mg PO BID 30 Days Qty: 60 0RF Continued albuterol sulfate [ProAir HFA] 90 mcg/actuation HFA aerosol inhaler 2 puff inhalation Q6H PRN ropinirole 1 mg tablet 1.5 mg PO DAILY atorvastatin 20 mg tablet 20 mg PO DAILY oxycodone-acetaminophen 5-325 mg Tablet 1 tab PO Q6H PRN PRNQty: 12 0RF potassium chloride [Klor-Con M20] 20 mEq Tablet,Er Particles/Crystals 20 meq PO DAILY Qty: 7 0RF colchicine [Colcrys] 0.6 mg Tablet 0.6 mg PO BID Qty: 28 0RF chlorthalidone 25 mg tablet 12.5 mg PO DAILY Qty: 0 0RF naloxone [Narcan] 4 mg/actuation spray,non-aerosol 4 mg intranasal Q3M PRNQty: 2 0RF Rx Instructions: spray 1 dose into ONE nostril; alternate nostrils w each dose until help arrives Discharge Instructions Instructions: Chest Pain (ED), Acute Pericarditis (ED) Additional Instructions: I am concerned that you have recurrent pericarditis. Your labs and imaging are reassuring here today with no indication that you have a blood clot in your lungs or having an active heart attack. Please take the colchicine as prescribed. I have also printed a coupon to help with the purchase of this medication. Please also take ibuprofen, 600 mg 3 times daily for the next 2 weeks. Please follow-up with your primary care provider in 1 week for reevaluation and to have your liver enzymes reassessed. If in the interim you develop increased pain shortness of breath, fever/chills or other new/worsening symptoms please seek care urgently once again. Referrals: Kedar Rankin [Primary Care Provider] - Discharge Data Discharge Date/Time-TO BE ENTERED AT DEPARTURE: 08/13/22 15:43 Medical Decision Making Patient is a pleasant 72-year-old female presenting with chief complaint of chest pain. Patient was discharged on 07/23/2022 after admission for pericarditis. Is a recurrent issue for the patient. She reports that since being discharged she has had a low level of chest discomfort and associated shortness of breath. However, today she noted the pain increased, began radiating into the neck and back which is typical for her when she had pericarditis in the past. States she had some nausea and lightheadedness. She denies any fevers or chills. No cough. Patient did undergo a CTA which ruled out dissection, aneurysm, PE as source of discomfort then. She also underwent a echocardiogram which showed an EF of 55, normal wall motion. She was discharged home on colchicine and Percocet. She has finished the colchicine. She has not been taking the potassium. On exam, patient appears nontoxic. However, she does appear slightly short of breath although not in respiratory distress distress. Lungs are clear. No mu rmurs rubs or gallops auscultated. No lower extremity edema or calf tenderness. I did not appreciate any change in cardiac auscultation with various positions including sitting forward or laying back. She is 2+ distal pulses in all extremities. Abdomen is benign. No bruits in the neck. Concern for potential recurrent pericarditis as patient reports that this feels the same as when she has had the discomfort in the past. Alternatively, I did consider ACS particularly as symptoms have been worsening. She did however have a thorough work-up on her recent admission. Plan to repeat troponins. She did recently have a CTA I do not feel that this is needed to be repeated as this is pain is not significantly changed from when she was initially here. She was recently admitted and has been more sedentary than typical, I did consider potential PE and will obtain D-dimer. D-dimer elevated at 760. Plan was for a CTA for potential PE. Creatinine is slightly elevated at 1.1. Troponin within normal limits. Plan to repeat this. Patient's ALT is also elevated at 65. While this is not significantly out of the realm of normal, it is elevated for the patient. She is not using any alco hol I am concerned that this may be associated with the colchicine she has been taking. ESR within normal limits. CRP within normal limits. CTA without evidence of PE. Repeat troponin within normal limits. Consulted Dr. Lomeli regarding patient's concern for possible recurrent pericarditis. She advised that the patient needs longer treatment for the pericarditis. We did discuss my concerns for her slightly elevated ALT. She advised that this could be significantly higher and still be within safe limits so it felt that moving forward with a longer course of colchicine would be most beneficial. We did discuss alternative options such as steroids and she advised that this would be most appropriate medication. She also encouraged that the patient take anti-inflammatory such as ibuprofen on scheduled interval for the next 2 weeks. I discussed these findings recommendations with the patient. I would like for her to follow-up with her primary care in 1 week to have her LFTs reassessed. Strict return precautions were discussed. Discussed continued management of her presumed pericarditis. All of her questions and concerns were addressed and she is in agreement this plan. Sign Out No HPI General Date/Time Provider Initiated Documentation: 08/13/22 10:22 . Limitations to Documentation: no limitations . Information obtained by: patient and RN notes reviewed . History of Present Illness 72 year old F presents to the emergency department with the chief complaint of chest pain, described as moderate and similar to prior episodes, Quality is described as aching, and is localized to the chest. Patient reports radiation to back and neck. Patient started experiencing this hour(s) and it has been constant. No relieving factors improve symptom(s), No exacerbating factors reported . Patient notes chest pain and nausea/vomiting; denies cough, diaphoresis, fever/chills, loss of appetite, malaise, rash, shortness of breath and weakness. Patient did receive the following treatments prior to arrival, none Related Data Home Medications Medication Instructions Recorded Confirmed albuterol sulfate 90 mcg/actuation 2 puff inhalation Q6H PRN 03/03/21 08/13/22 aerosol inhaler (ProAir HFA) ropinirole 1 mg tablet 1.5 mg PO DAILY 06/04/22 08/13/22 atorvastatin 20 mg tablet 20 mg PO DAILY 07/20/22 08/13/22 chlorthalidone 25 mg tablet 12.5 mg PO DAILY #0 tabs 07/23/22 08/13/22 colchicine 0.6 mg tablet (Colcrys) 0.6 mg PO BID #28 tabs 07/23/22 08/13/22 naloxone 4 mg/actuation nasal 4 mg intranasal Q3M PRN #2 ea 07/23/22 08/13/22 spray (Narcan) oxycodone-acetaminophen 5 mg-325 1 tab PO Q6H PRN PRN #12 tabs 07/23/22 08/13/22 mg tablet potassium chloride 20 mEq 20 meq PO DAILY #7 tabs 07/23/22 08/13/22 tablet,extended release(part/cryst) (Klor-Con M) colchicine 0.6 mg tablet 0.6 mg PO BID 1 month #60 tabs 08/13/22 Previous Rx's Medication Instructions Recorded chlorthalidone 25 mg tablet 12.5 mg PO DAILY #0 tabs 07/23/22 colchicine 0.6 mg tablet (Colcrys) 0.6 mg PO BID #28 tabs 07/23/22 naloxone 4 mg/actuation nasal 4 mg intranasal Q3M PRN #2 ea 07/23/22 spray (Narcan) oxycodone-acetaminophen 5 mg-325 1 tab PO Q6H PRN PRN #12 tabs 07/23/22 mg tablet potassium chloride 20 mEq 20 meq PO DAILY #7 tabs 07/23/22 tablet,extended release(part/cryst) (Klor-Con M) colchicine 0.6 mg tablet 0.6 mg PO BID 1 month #60 tabs 08/13/22 Allergies Allergy/AdvReac Type Severity Reaction Status Date / Time environmental Allergy Uncoded 08/13/22 13:35 General Stated Complaint: Chest Pain CALLIE: 3 Review of Systems Constitutional Constitutional: Reports as per HPI, Denies chills, Denies fever(s), Denies headache(s), Denies lethargy and Denies poor appetite ENT Ears, Nose, Mouth, and Throat: Denies dizziness and Denies headache(s) Cardiovascular Cardiovascular: Reports as per HPI, Denies dyspnea and Denies dyspnea on exertion Respiratory Respiratory: Reports as per HPI, Denies chest congestion, Denies cough, Denies dyspnea and Denies dyspnea on exertion Gastrointestinal Gastrointestinal: Reports as per HPI, Denies abdominal pain and Denies diarrhea Integumentary/Breasts Skin/Breast: Reports as per HPI and Denies rash Neurologic Neurologic: Reports as per HPI, Denies dizziness and Denies headache(s) PFSH All Active Problems (Updated 08/13/22 @ 14:48 by SABRINA De La Rosa) Pericarditis (Acute) Leukocytosis (Acute) Chest pain (Acute) Incidental pulmonary nodule (Acute) Sessile colonic polyp (Acute) Encounter for routine gynecological examination (Acute 10/28/14) Pap/hpv done recommend continuing yearly mammograms advised re colonoscopy recommendations and benefits Cystocele (Acute) Medical History Allergic asthma Asthma 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) Depression History of hypertension History of malignant neoplasm of breast History of pericarditis Hyperlipidemia Hypertension Left bundle branch block Radiculopathy Restless leg syndrome Surgical History Appendectomy (~1970) Biopsy of breast L breast benign 1994 Cholecystectomy 1979 secondary to benign tumor no stones . History of cataract surgery History of cholecystectomy History of colonoscopy (~10/2021) Ligation of fallopian tube 1977 S/P cervical spinal fusion S/P coronary angiogram 10 years ago per patient Tonsillectomy (~1960) Family History Other Diabetes Heart disease Hyperlipidemia Personal history of malignant neoplasm Social History Smoking/Tobacco Use Status: Never Smoking risk assessment performed?: Yes Alcohol Intake: current Alcohol Intake frequency: a few times a week Alcohol type: wine Drug use: Never Substance use type: does not use Do you feel safe at home: Yes Do you feel safe in your relationship?: Yes Exam Const General: cooperative, healthy appearing, comfortable, no acute distress and well developed Nutritional Appearance: average body habitus and well nourished Orientation: alert, awake and oriented x3 HENMT Head: normal to inspection Ears: hearing grossly normal bilaterally Mouth: moist mucous membranes Chest Chest: normal inspection of the chest, normal palpation of entire chest wall and no crepitus Resp Effort & Inspection: normal respiratory effort, able to speak in complete sentences and no respiratory distress Auscultation: clear to auscultation bilaterally, no rales, no rhonchi and no wheezes Cardio Rate: regular rate Rhythm: regular rhythm Heart Sounds: S1 normal and S2 normal GI Inspection: normal to inspection, no edema and non-distended Palpation: soft, no hepatosplenomegaly, not firm, no guarding, not rigid and nontender Auscultation: normal bowel sounds Back/Spine/Pelvis Back: no CVA tenderness Thoracic/Lumbar Spine: thoracic and lumbar spine normal to inspection Skin General skin exam: no rashes or lesions noted Trauma: no lacerations or abrasions Neuro General: patient alert, patient awake and patient oriented x3 Cognition: normal cognition Speech: speech normal Gait: normal gait Extrem General: normal to inspection, capillary refill normal, no pedal edema, no calf tenderness and normal gait Psych Appearance: grossly normal and well kempt Mental Status: mental status grossly normal Speech and Movement: speech and movement normal Course Vital Signs Vital signs: Vital Signs Pulse 87 08/13/22 10:31 Respiratory Rate 18 08/13/22 10:31 Blood Pressure 169/94 H 08/13/22 10:31 Pulse Oximetry 99 08/13/22 10:31 Temperature Source Temporal Artery Scan 08/13/22 10:31 Pulse 87 08/13/22 10:31 Respiratory Rate 18 08/13/22 10:31 Blood Pressure 169/94 H 08/13/22 10:31 Blood Pressure Position Sitting 08/13/22 10:31 Pulse Oximetry 99 08/13/22 10:31 Oxygen Delivery Method Room Air 08/13/22 10:31 Oxygen Flow Rate 0 08/13/22 10:31
[2022-08-13 10:48] LABS: Abs Immature Grans 0.02 10^3/uL (0.0-0.06); Absolute Basophil Count 0.06 10^3/uL (0.0-0.2); Absolute Eosinophil Count 0.31 10^3/uL (0.0-0.7); Absolute Lymphocyte Count 5.22 10^3/uL (1.2-3.4); Absolute Monocyte Count 0.69 10^3/uL (0.1-0.8); Basophils % 0.5; Eosinophils % 2.8; HCT 43.5 % (36.0-46.0); HGB 14.6 g/dL (11.2-15.7); Immature Grans % 0.2; MCH 29.9 pg (27.0-33.0); MCHC 33.6 % (32.0-36.0); MCV 89 fL (80-95); MPV 9.3 fL (8.0-11.0); Monocytes % 6.2; Neutrophils % 43.3; Platelet Count 385 10^3/uL (130-400); RBC 4.88 10^6/uL (3.93-5.22); RDW 12.5 % (11.7-14.6); RDW-SD 41.1 fL
[2022-08-13] MEDS: Aspirin 81 MG CHEW 324 MG CH (10:48)
[2022-08-13 10:49] LABS: Absolute Neutrophil Count 4.81 10^3/uL (1.2-6.7)
[2022-08-13 11:05] LABS: Diff Comment Diff Reviewed; RBC Morphology Normal
[2022-08-13 11:18] LABS: ALT 65 U/L (14-59); AST 31 U/L (15-37); Albumin 4.1 g/dL (3.4-5.0); Alkaline Phosphatase 104 U/L (46-116); Anion Gap 9.8 mmol/L (3-11); BUN 19 mg/dL (7-18); Bilirubin, Total 0.5 mg/dL (0.2-1.0); CO2 30.2 mmol/L (21.0-32.0); CREATININE 1.1 mg/dL (0.55-1.02); Calcium 10.2 mg/dL (8.5-10.1); Chloride 99 mmol/L (98-107); Estimated GFR 54.06 (mL/min/1.73m2); Glucose 98 mg/dL (74-106); Magnesium 1.9 mg/dL (1.8-2.4); NT-proBNP 116 pg/mL (<300); Potassium 3.6 mmol/L (3.5-5.1); Sodium 139 mmol/L (136-145); Total Protein 8.3 g/dL (6.4-8.2); Troponin I < 50 ng/L (<or=60)
[2022-08-13 11:20] LABS: D-Dimer 760 ng/mlFEU (<500)
[2022-08-13 11:44] LABS: ESR 26 mm/hr (0-30)
--- NOTE | 2022-08-13 11:45 | DI.CT_ITS ---
Exam(s) CT CHEST PE CTA EXAM: CT CHEST PE CTA CLINICAL HISTORY: SOB, CP, recent admission for pericarditis. TECHNIQUE: Imaging Protocol: Axial CT angiography was performed with multi-slice acquisition and mu lti-planar reconstructions as well as axial, coronal and sagittal MIP reconstructions. CONTRAST MATERIAL: Intravenous: Omnipaque 350 Contrast volume:90 ml COMPARISON: CT CT CHEST PE CTA from 07/20/2022 FINDINGS: Pulmonary Arteries: No evidence of filling defect to suggest pulmonary emboli. Tracheobronchial tree: Patent where visualized. Mediastinum and Leanne: No dominant adenopathy or fluid collection. Pulmonary parenchyma: No consolidation or dominant measurable mass. Pleura: No effusion or pneumothorax. Heart: The heart is mildly dilated. No coronary artery calcifications are seen. Aorta: Thoracic aorta non-dilated. No aneurysm. No dissection. Upper abdomen: Unremarkable. Bones: Unremarkable for age. IMPRESSION: No evidence of pulmonary embolism or other acute abnormality.. Findings called to Zahida Rees of the emergency department. RADIATION DOSE DELIVERED: 387.5mGy.cm Total DLP DATA REPOSITORY: All CT scans at this facility are submitted to the National Radiology Data Registry (NRDR) Dose Index Registry (DIR) with the [employer] (ACR). RADIATION OPTIMIZATION: All CT scans at this facility use at least one of these dose optimization te chniques: automated exposure control; mA and/or kV adjustment per patient size (includes targeted exa ms where dose is matched to clinical indication); or iterative reconstruction.
[2022-08-13 11:50] LABS: C-Reactive Protein 0.19 mg/dL (0.0-0.3)
[2022-08-13] MEDS: Omnipaque 350 MG/ML 500 ML BTL-Imaging package IJ (13:20)
[2022-08-13] MEDS: Normal Saline - Diluent 50 ML VIAL IJ (13:21)
[2022-08-13 14:11] LABS: Troponin I < 50 ng/L (<or=60)
== END 2022-08-13 15:43 | disposition home or self-care (01) ==
PROVIDERS: Emergency Provider Physician Assistant; PCP Physician Assistant
DX: I30.9 Acute pericarditis, unspecified (principal); R07.9 Chest pain, unspecified; R06.02 Shortness of breath
CPT/HCPCS: 36415; 71275; 80053; 85652; 93005; 99285; 83735; 83880; 84484; 85025; 85379; 86140; 93010; 99284

== ENCOUNTER 2022-09-27 12:35 | Outpatient (CLI) | payer MEDICARE, BC, SELFPAY ==
--- NOTE | 2022-09-27 12:30 | RT.EKG_ITS ---
APPROVED REPORT Exam: Resting ECG Reason for Exam: cardiac evaluation Patient Location: O HR:76 bpm ECG Measurements Heart Rate 76 AXIS [place] 149 P 46 QRSd 148 QRS -34 QT 429 T 143 QTc 483 Conclusion Sinus rhythm...normal P axis, V-rate 50- 99 Left bundle branch block...QRSd>120, broad/notched R
== END 2022-09-27 12:36 | disposition home or self-care (01) ==
LOC: DI.CARD 12:36
PROVIDERS: PCP Physician Assistant; Visit Provider Internal Medicine Cardiovascular Disease
DX: I31.9 Disease of pericardium, unspecified (principal); R94.31 Abnormal electrocardiogram [ECG] [EKG]; I44.7 Left bundle-branch block, unspecified
CPT/HCPCS: 93010

== ENCOUNTER → 2022-09-27 12:49 | Outpatient (BNVA) | payer MEDICARE, BC, SELFPAY | PROVIDERS: PCP Physician Assistant; Referring Provider Physician Assistant; Visit Provider Internal Medicine Cardiovascular Disease | DX: I31.9 Disease of pericardium, unspecified (principal); I44.7 Left bundle-branch block, unspecified; R07.9 Chest pain, unspecified | CPT/HCPCS: 93005; 99214 ==

== ENCOUNTER 2022-10-04 00:47 | Outpatient (CLI) | payer MEDICARE, BC, SELFPAY ==
--- NOTE | 2022-10-04 06:45 | DI.NM_ITS ---
APPROVED REPORT Exam: Pharmacologic Patient Location: Out-Patient Room/Bed: Stress Nurse: Carmen Morillo RN Ordering Provider:SYLWIA ZULETA, Contact Number: [phone] BMI: 32.00 Baseline Rhythm: Sinus Rhythm, LBBB Indications: Left bundle branch block, dyspnea on exertion, chest pain Medical History Medical History: Pericarditis, hypokalemia, chest pain, incidental pulmonary nodule, asthma, htn, hld , malignant neoplasm of breast Cardiac Medications: Atorvastatin, Chlortalidone, albuterol sulfate, potassium chloride, colchicine Allergies: Environmental only Cardiac Risk Factors: +family history, HTN, HLD, asthma Previous Cardiac Procedures: PCI early Pretest Chest Pain Characteristics: None Exercise History: Indeterminate Physical Disabilities: None Lung Sounds: Clear Heart Sounds: Regular Stress Test Details Test: Pharmacologic stress testing performed using 0.4 mg of regadenoson per 5 mL given IV over 10 s econds. Reason for pharmacologic stress test: LBBB. Nuclear Acquisition: Rest Tc-99m/Stress Tc-99m 1 day Rest Isotope: Tc-99m Sestamibi. Dose: 10.0 Date: 10/04/2022 Injection Time: 09:00 Stress Isotope: Tc-99m Sestamibi. Dose: 30.0 Date: 10/04/2022 Injection Time: 10:30 HR Resting HR Supine: 64 bpm Max Heart Rate (APMHR): 150 bpm Resting HR Standin bpm Target HR (85% APMHR): 128 bpm Max HR Achieved: 94 bpm % of APMHR: 63 Recovery HR: 85 bpm BP Resting BP Supine: 150/88 mmHg Resting BP Standin/88 mmHg Max BP: 162/82 mmHg Recovery BP: 132/82 mmHg ECG Resting ECG: Sinus Rhythm, LBBB Ectopy: None Stress ECG: Sinus Rhythm, LBBB Arrhythmia: None Recovery ECG: Sinus Rhythm, LBBB Recovery Arrhythmia: None Clinical Stress Symptoms: Shortness of breath, chest pain, lightheaded Angina Score: None Perez Treadmill Score: 8.6 Rate Pressure Product: 22329 Stress ECG Conclusion 1. Electrocardiogram showed a left bundle branch block 2. Patient underwent pharmacologic stress using regadenoson 3. Electrocardiographic portion of the test was nondiagnostic due to LBBB 4. See MPI report Perez Treadmill Score is 8.6 which is Low risk. Stress Test Summary STAGE HR BP SpO2 Symptoms NOTES Supine 64 150/88 Standing 74 140/88 1 min post Lexiscan injection 88 162/82 Short of breath, chest pain 4-5/10 3 min post Lexiscan injection 90 148/80 Lightheaded, chest pain 4-5/10 6 min post Lexiscan injection 83 132/82 Chest pain 1-2/10 9 min post Lexiscan injection Chest pain resolved, 0/10 Pt was capable of doing a walking matthew-scan injection but when attempted the EKG picture was not isela r, attempted adjusting leads while patient was walking at 1.3 mph but unfortunately could not get [place] ar images. Treadmill was stopped, patient returned to the stretcher and a laying lexiscan exam was do ne. Patient tolerated well, was asymptomatic within 8 minutes of lexiscan injection. MPI Conclusion Myocardial perfusion is normal. There is no evidence of ischemia or prior infarction EF 62%, normal wall motion Radiologist Interpretation Radiologist agrees with Air Intelligence Specialist's Interpretation. Radiologist Interpretation by: Bruce Granda MD Interpretation Date/Time: 10/04/2022 15:17:03
[2022-10-04] MEDS: Regadenoson 0.4 MG/5 ML SYR IVP (10:54)
== END 2022-10-04 01:07 ==
LOC: DI 00:49
PROVIDERS: PCP Physician Assistant; Visit Provider Internal Medicine Cardiovascular Disease
DX: R07.9 Chest pain, unspecified (principal)
CPT/HCPCS: 78452; 93016; 93018; 93017; J2785

== ENCOUNTER 2022-10-31 01:12 | Outpatient (CLI) | payer MEDICARE, BC, SELFPAY ==
--- NOTE | 2022-10-31 15:22 | DI.CT_ITS ---
Exam(s) CT CHEST WO EXAM: CT CHEST WO CLINICAL HISTORY: F/U PULMONARY NODULE,R91.1. TECHNIQUE: Imaging protocol: Axial computed tomography images were obtained and coronal and sagittal reformatted images were created and reviewed. COMPARISON: CT UPPER ABD WITH CONTRAST (P) from 06/11/[address] CHEST PE CTA from 07/20/[address] CHEST PE CTA from 08/13/2022 FINDINGS: Tracheobronchial tree: Patent where visualized. Pulmonary parenchyma: No consolidation or dominant measurable mass. There is a stable 5-6 mm ground-g lass nodule in the right upper lobe. There is a stable 3 mm nodule in the anterior medial aspect of the right lower lobe. There are no new pulmonary nodules. Mediastinum and Leanne: No dominant adenopathy or fluid collection. The esophagus is unremarkable. Thyroid gland: Unremarkable. Pleura: No effusion or pneumothorax. Heart: The heart is not dilated. Mild coronary artery calcification is present. No pericardial effus ion. Aorta: Thoracic aorta non-dilated. Atherosclerosis. Upper abdomen: Status post cholecystectomy. There is a stable tiny hypodensity in the dome of the l iver. It is too small for further characterization but likely reflects a small cyst. Lymph nodes: Within normal limits. Soft tissues: Unremarkable. Bones:Within normal limits for the patient's age. IMPRESSION: Stable pulmonary nodules. For low risk patients, follow-up examination in 6-12 months is recommended . For high risk patients (history of smoking or other risk factors), initial follow-up examination i n 6-12 months and again in 18-24 months is recommended. (Pauline et al, 2017). RADIATION DOSE DELIVERED: 604.36mGy.cm Total DLP 604.36mGy.cm Total DLP DATA REPOSITORY: All CT scans at this facility are submitted to the National Radiology Data Registry (NRDR) Dose Index Registry (DIR) with the [employer] (ACR). RADIATION OPTIMIZATION: All CT scans at this facility use at least one of these dose optimization te chniques: automated exposure control; mA and/or kV adjustment per patient size (includes targeted exa ms where dose is matched to clinical indication); or iterative reconstruction.
== END 2022-10-31 01:32 ==
LOC: DI 01:14
PROVIDERS: PCP Physician Assistant; Visit Provider Physician Assistant
DX: R91.1 Solitary pulmonary nodule (principal); R91.8 Other nonspecific abnormal finding of lung field
CPT/HCPCS: 71250

== ENCOUNTER 2023-02-05 02:20 | Outpatient (CLI) | payer MEDICARE, BC, SELFPAY ==
--- NOTE | 2023-02-05 08:15 | DI.MRI_ITS ---
Exam(s) MR LUMBAR SPINE WO EXAM: MR LUMBAR SPINE WO CLINICAL HISTORY: LOW BACK PAIN M54.50 WITH BILAT RADICULOPATHY. TECHNIQUE: Multiplanar multisequence MRI of the Lumbar spine was performed. COMPARISON: CR XR LUMBAR SPINE COMPLETE from 07/19/2022 FINDINGS: Conus medullaris is at normal level. There is no evidence of conus mass nor subjacent clumping of in trathecal nerve roots to suggest arachnoiditis. The distal thecal sac is at lower S3 level..There is no evidence of Tarlov intrasacral cysts nor other significant findings within the sacral canal Bones:There are no fractures nor ominous osseous lesions in the lumbar vertebral bodies and visualize d sacrum. There are Modic type 1 sub endplate marrow edema changes on both sides of L4-5 disc space without evidence of discitis signal and without loss of endplate definition. Lesser amount of the sa me is seen at L5-S1 level. With respect to the individual levels... T12-L1: Unremarkable L1-2: Normal disc height and signal. No disc herniation nor central canal stenosis.No foraminal steno sis L2-3: Chronic advanced disc height loss. Anterior osteophytes. Posteriorly there is posterior annul ar bulging and posterior bony ridging. There is mild central canal stenosis. No dominant disc herni ation. The annular bulging extends into the exiting neural foramina on both sides. There is mild bi lateral foraminal stenosis at this level. Minimal degenerative changes in the facet joints. L3-4: This level also exhibits advanced chronic-type disc space narrowing. There is broad relatively symmetrical posterior bony ridging and annular bulging. Mild central spinal canal stenosis, similar to 1 level above. Annular bulging extends into the floor both exiting neural foramina and this, tog ether with the disc height loss results in an element of mild bilateral foraminal stenosis. L4-5: This level exhibits significant disc space narrowing and vacuum phenomenon. No discitis signal but there is edema evident in the lower half of L4 and upper aspect L5, consistent with Modic type 1 sub endplate marrow edema changes.. Bone edema does extend into both L5 pedicles at this level . in addition, there is symmetrical increased signal in the bilateral facet joints with significant facet arthropathy. There is also a small degenerative synovial cyst coming off of the posterior aspect of the right facet joint. This synovial cyst measures approximately 1.0 x 0.9 cm. It is not causing m ass effect upon the central spinal canal. There is broad symmetrical annular bulging at this level w ith moderate central spinal canal stenosis. There is also moderate bilateral foraminal stenosis at t his level due to short AP dimensions of the pedicles, the bulging annulus extending into the floor arnoldo th exiting neural foramina, as well as some degenerative overgrowth of the facet joints. There is no obvious epidural fluid collection evident at this level. L5-S1: This level also exhibits chronic disc space narrowing and vacuum phenomenon and some intraosse ous edema on both sides of the disc space. Bone edema at this level extends into the bilateral pedic les of L5 as described above. There is mild increased signal noted in the right facet joint at this level. No evidence of degenerative synovial cysts in the facet joints at this level. No abnormal ep idural fluid collection evident none. There is mild central spinal canal stenosis due to broad annul ar bulging. There is also moderate foraminal stenosis on the left side and severe foraminal stenosis on the right side, this related to the annular bulging extending into the exiting neural foramina as well as the vertical height loss of the disc space and facet joint overgrowth. IMPRESSION: 1. Multilevel chronic degenerative disc disease with multilevel findings as described individually ab ove including central spinal canal stenosis at a few levels, most prominent at L4-5. Also significan t bilateral foraminal stenosis at the lower 3 levels related to vertical height loss of the discs at these levels as well as annular bulging into the floor of the exiting neural foramina bilaterally and impingement by degenerative facet overgrowth. There is also a degenerative synovial cyst related to the right facet joint at L4-5 level but this 1 cm cyst is coming off of the posterior aspect of the a synovial cavity and thus not extending into the spinal canal itself. 2. Of some concern here is bone edema evident in the L4 and L5 vertebral bodies. This is seen to ext end into the pedicles bilaterally at these levels, more prominent at the L5 level. Also synovitis si gnal evident within both facet joints at L4-5 level. There is no obvious signal abnormality within t he diminished disc spaces at L4-5 and L5-S1 levels to suggest discitis and there is no obvious loss o f endplate definition at these levels. Nevertheless correlation with clinical findings and blood wor k recommended and if clinically indicated repeat study with contrast infusion can be performed. DATA REPOSITORY:
== END 2023-02-05 02:40 ==
LOC: DI 02:21
PROVIDERS: PCP Physician Assistant; Visit Provider Physician Assistant
DX: M47.25 Other spondylosis with radiculopathy, thoracolumbar region; M71.38 Other bursal cyst, other site; M89.9 Disorder of bone, unspecified
CPT/HCPCS: 72148

== ENCOUNTER 2023-02-17 12:12 | Emergency (ER) | payer MEDICARE, BC, SELFPAY ==
[2023-02-17] VITALS (35 sets, daily range): BP systolic 121–172; BP diastolic 71–106; PULSE 0–82; RESP 9–22; TEMP 36.8; O2SAT 94–100
--- NOTE | 2023-02-17 12:00 | RT.EKG_ITS ---
APPROVED REPORT Exam: Resting ECG Reason for Exam: chest pain Patient Location: E HR:67 bpm ECG Measurements Heart Rate 67 AXIS ME 169 P 55 QRSd 140 QRS -18 QT 445 T 145 QTc 471 Conclusion Sinus rhythm...normal P axis, V-rate 60- 99 Left bundle branch block...QRSd>120, broad/notched R
--- NOTE | 2023-02-17 12:15 | DI.RAD_ITS ---
Exam(s) XR CHEST 2V PA LATERAL EXAM: XR CHEST 2V PA LATERAL CLINICAL HISTORY: pain TECHNIQUE: 2D digital imaging was performed of the chest. Two images were obtained. PA and lateral views were obtained. COMPARISON: CR,XR XR PORTABLE CHEST AP from 07/21/2022 FINDINGS: MEDIASTINUM: Normal. HEART: Normal. PULMONARY VASCULATURE: Normal. LUNGS: Clear. PLEURAL SPACE: No pleural effusion or pneumothorax. BONE:Within normal limits for the patient's age. OTHER FINDINGS:Normal. IMPRESSION: No acute pulmonary findings. DATA REPOSITORY: RADIATION DOSE DELIVERED:
--- NOTE | 2023-02-17 12:22 | ED.GENADUL_ITS ---
Discharge Plan Discharge Details Chief Complaint: Chest Pain Primary Care Provider: Kedar Rankin ED Provider: Rui Rodas Home Meds and New Rx's Prescriptions: No Action albuterol sulfate [ProAir HFA] 90 mcg/actuation HFA aerosol inhaler 2 puff inhalation Q6H PRN ropinirole 1 mg tablet 1.5 mg PO DAILY atorvastatin 20 mg tablet 20 mg PO DAILY potassium chloride [Klor-Con M20] 20 mEq Tablet,Er Particles/Crystals 20 meq PO DAILY Qty: 7 0RF colchicine [Colcrys] 0.6 mg Tablet 0.6 mg PO BID Qty: 28 0RF chlorthalidone 25 mg tablet 12.5 mg PO DAILY Qty: 0 0RF naloxone [Narcan] 4 mg/actuation spray,non-aerosol 4 mg intranasal Q3M PRNQty: 2 0RF Rx Instructions: spray 1 dose into ONE nostril; alternate nostrils w each dose until help arrives lisinopril 10 mg tablet 10 mg PO DAILY Patient Comments: Take 1 tablet by mouth once a day duloxetine [Cymbalta] 20 mg capsule,delayed release(DR/EC) 20 mg PO DAILY Patient Comments: Take 1 capsule by mouth once a day pregabalin 50 mg capsule 50 mg PO BID Patient Comments: TAKE ONE CAPSULE BY MOUTH TWICE A DAY Medical Decision Making 72-year-old lady presented to the emergency room with chest pain that she describes consistent as her Most recent case of pericarditis. Her EKG is unchanged with a left bundle branch block. Stable troponins are negative. Patient discomfort significantly decreased upon arrival to the emergency department She declined any pain medication. Chest x-ray was negative. Results discussed with the patient, she will start taking her colchicine that she has at home. HPI General Date/Time Provider Initiated Documentation: 02/17/23 12:22 . HPI Narrative: 72-year-old lady presents to the emergency room for evaluation of chest pain. She states that she started having some chest discomfort that radiated to her neck approximately 11 AM. The intensity was significant earlier has dissipated for the most part right now. No shortness of breath. No palpitation. No radiation to the back. No radiation to the arms. She states that this feels like the episode of pericarditis that she had back in July of last year. Related Data Home Medications Medication Instructions Recorded Confirmed albuterol sulfate 90 mcg/actuation 2 puff inhalation Q6H PRN 03/03/21 02/17/23 aerosol inhaler (ProAir HFA) ropinirole 1 mg tablet 1.5 mg PO DAILY 06/04/22 02/17/23 atorvastatin 20 mg tablet 20 mg PO DAILY 07/20/22 02/17/23 chlorthalidone 25 mg tablet 12.5 mg PO DAILY #0 tabs 07/23/22 02/17/23 colchicine 0.6 mg tablet (Colcrys) 0.6 mg PO BID #28 tabs 07/23/22 02/17/23 naloxone 4 mg/actuation nasal 4 mg intranasal Q3M PRN #2 ea 07/23/22 02/17/23 spray (Narcan) potassium chloride 20 mEq 20 meq PO DAILY #7 tabs 07/23/22 02/17/23 tablet,extended release(part/cryst) (Klor-Con M) duloxetine 20 mg capsule,delayed 20 mg PO DAILY 02/17/23 02/17/23 release (Cymbalta) lisinopril 10 mg tablet 10 mg PO DAILY 02/17/23 02/17/23 pregabalin 50 mg capsule 50 mg PO BID 02/17/23 02/17/23 Previous Rx's Medication Instructions Recorded chlorthalidone 25 mg tablet 12.5 mg PO DAILY #0 tabs 07/23/22 colchicine 0.6 mg tablet (Colcrys) 0.6 mg PO BID #28 tabs 07/23/22 naloxone 4 mg/actuation nasal 4 mg intranasal Q3M PRN #2 ea 07/23/22 spray (Narcan) potassium chloride 20 mEq 20 meq PO DAILY #7 tabs 07/23/22 tablet,extended release(part/cryst) (Klor-Con M) Allergies Allergy/AdvReac Type Severity Reaction Status Date / Time environmental Allergy Uncoded 02/17/23 12:42 General Stated Complaint: Chest Pain CALLIE: 3 Review of Systems Narrative: 10 point review systems negative unless otherwise specified in the HPI PFSH All Active Problems Pericarditis (Acute) Leukocytosis (Acute) Chest pain (Acute) Incidental pulmonary nodule (Acute) Sessile colonic polyp (Acute) Encounter for routine gynecological examination (Acute 10/28/14) Pap/hpv done recommend continuing yearly mammograms advised re colonoscopy recommendations and benefits Cystocele (Acute) Medical History Allergic asthma Asthma 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) Depression History of hypertension History of malignant neoplasm of breast History of pericarditis Hyperlipidemia Hypertension Left bundle branch block Radiculopathy Restless leg syndrome Surgical History Appendectomy (~1970) Biopsy of breast L breast benign 1994 Cholecystectomy 1979 secondary to benign tumor no stones . History of cataract surgery History of cholecystectomy History of colonoscopy (~10/2021) Ligation of fallopian tube 1977 S/P cervical spinal fusion S/P coronary angiogram 10 years ago per patient Tonsillectomy (~1960) Family History Other Diabetes Heart disease Hyperlipidemia Personal history of malignant neoplasm Social History Smoking/Tobacco Use Status: Never Smoking risk assessment performed?: Yes Alcohol Intake: current Alcohol Intake frequency: a few times a week Alcohol t ype: wine Drug use: Never Substance use type: does not use Do you feel safe at home: Yes Do you feel safe in your relationship?: Yes Exam Narrative Exam Narrative: General: A,A Ox3, Calm, no apparent distress, well developed, pleasant and cooperative Head Size/Shape: normocephalic, atraumatic Eyes Pupils: PERRLA Extraocular Mobility: intact and symmetrical Conjunctiva: non-injected, anicteric, no discharge Ears, Nose, Throat Nares: patent bilaterally Oral Cavity: moist Neck: no masses, no crepitus Lymph Nodes: no cervical lymphadenopathy Respiratory Respiratory Effort: no dyspnea Auscultation: clear to auscultation bilaterally, normal breath sounds, no wheezing, no rales/crackles Cardiovascular Heart Auscultation: regular rate and rhythm, normal S1, normal S2, no murmurs, no rubs, no gallops, Abdomen Inspection and Palpation: soft, non-tender, non-distended, no hepatosplenomegaly Musculoskeletal System Joints, Bones, and Muscles: no deformities Extremities: warm and well-perfused, no cyanosis, capillary refill <2 seconds Skin Skin Inspection: no rash, no lesions, no bruising Neurological Motor: normal tone, normal strength, moving all extremities equally Psychiatric: good insight, good judgement, normal mood and affect Course Vital Signs Vital signs: Vital Signs Temperature 36.8 C 02/17/23 12:17 Pulse 82 02/17/23 12:17 Respiratory Rate 18 02/17/23 12:17 Blood Pressure 172/92 H 02/17/23 12:17 Pulse Oximetry 98 02/17/23 12:17 Temperature 36.8 C 02/17/23 12:17 Temperature Source Oral 02/17/23 12:17 Pulse 82 02/17/23 12:17 Respiratory Rate 18 02/17/23 12:17 Blood Pressure 172/92 H 02/17/23 12:17 Blood Pressure Position Supine 02/17/23 12:17 Pulse Oximetry 98 02/17/23 12:17 Oxygen Delivery Method Room Air 02/17/23 12:17 Oxygen Flow Rate 0 02/17/23 12:17
[2023-02-17 12:44] LABS: Abs Immature Grans 0.02 10^3/uL (0.0-0.06); Absolute Basophil Count 0.08 10^3/uL (0.0-0.2); Absolute Eosinophil Count 0.22 10^3/uL (0.0-0.7); Absolute Lymphocyte Count 3.97 10^3/uL (1.2-3.4); Absolute Monocyte Count 0.53 10^3/uL (0.1-0.8); Absolute Neutrophil Count 6.42 10^3/uL (1.2-6.7); Basophils % 0.7; HCT 42.3 % (36.0-46.0); HGB 14.5 g/dL (11.2-15.7); Immature Grans % 0.2; Lymphocytes % 35.3; MCH 30.5 pg (27.0-33.0); MCHC 34.3 % (32.0-36.0); MCV 89 fL (80-95); MPV 9.1 fL (8.0-11.0); Monocytes % 4.7; Neutrophils % 57.1; Platelet Count 409 10^3/uL (130-400); RBC 4.76 10^6/uL (3.93-5.22); RDW 12.1 % (11.7-14.6); RDW-SD 39.6 fL; WBC 11.24 10^3/uL (4.4-10.8)
[2023-02-17 13:06] LABS: ALT 25 U/L (14-59); AST 15 U/L (15-37); Alkaline Phosphatase 98 U/L (46-116); Anion Gap 8.5 mmol/L (3-11); BUN 15 mg/dL (7-18); Bilirubin, Direct 0.1 mg/dL (0.0-0.2); Bilirubin, Total 0.5 mg/dL (0.2-1.0); C-Reactive Protein 0.33 mg/dL (0.0-0.3); CO2 29.5 mmol/L (21.0-32.0); Calcium 9.9 mg/dL (8.5-10.1); Chloride 96 mmol/L (98-107); Estimated GFR 60.61 (mL/min/1.73m2); Glucose 107 mg/dL (74-106); Magnesium 1.7 mg/dL (1.8-2.4); NT-proBNP 83 pg/mL (<300); Potassium 3.5 mmol/L (3.5-5.1); Sodium 134 mmol/L (136-145); Total Protein 8.1 g/dL (6.4-8.2); Troponin I < 50 ng/L (<or=60)
--- NOTE | 2023-02-17 13:32 | DI.VRAD_ITS ---
PROCEDURE INFORMATION: Exam: XR Chest Exam date and time: 02/17/2023 1:19 PM Age: 72 years old Clinical indication: Other: Pain TECHNIQUE: Imaging protocol: Radiologic exam of the chest. Views: 2 views. COMPARISON: CT CHEST WO 10/31/2022 3:18 PM FINDINGS: Lungs: Unremarkable. No consolidation. Pleural spaces: Unremarkable. No pleural effusion. No pneumothorax. Heart/Mediastinum: Unremarkable. No cardiomegaly. Bones/joints: Unremarkable. IMPRESSION: No acute findings. Dictated and Authenticated by: Damion Roberts MD. Ordering:LORNA Fabian MD
[2023-02-17 15:42] LABS: Troponin I < 50 ng/L (<or=60)
== END 2023-02-17 16:02 | disposition home or self-care (01) ==
PROVIDERS: Emergency Provider Emergency Medicine; PCP Physician Assistant
DX: I31.9 Disease of pericardium, unspecified (principal)
CPT/HCPCS: 36415; 80053; 80076; 93005; 99284; 71046; 83735; 83880; 84484; 85025; 86140; 93010

== ENCOUNTER 2023-02-18 19:53 | Outpatient (REF) | payer MEDICARE, BC, SELFPAY ==
[2023-02-19 21:05] LABS: Rheumatoid Factor <8.6 IU/mL (<12.0)
[2023-02-20 09:20] LABS: Cyclic Citrullinated Peptide <2.5 U/mL (<5.0)
[2023-02-20 15:40] LABS: ANA Interpretation Positive (Negative); ANA Titer Pattern 1:80 Homogeneous
[2023-02-22 14:22] LABS: dsDNA Ab, IgG <12.3 IU/mL (<30.0)
== END 2023-02-18 19:54 | disposition home or self-care (01) ==
LOC: NCHCN 19:53
PROVIDERS: PCP Physician Assistant; Visit Provider Physician Assistant
DX: I30.9 Acute pericarditis, unspecified (principal)
CPT/HCPCS: 86200; 86038; 86140; 86225; 86431

== ENCOUNTER 2023-03-05 07:50 | Outpatient (CLI) | payer MEDICARE, BC, SELFPAY ==
--- NOTE | 2023-03-05 07:45 | RT.EKG_ITS ---
APPROVED REPORT Exam: Resting ECG Reason for Exam: chest pain Patient Location: O HR:70 bpm ECG Measurements Heart Rate 70 AXIS WY 159 P 45 QRSd 138 QRS -27 QT 408 T 142 QTc 441 Conclusion Sinus rhythm...normal P axis, V-rate 50- 99 Left bundle branch block...QRSd>120, broad/notched R Baseline wander in lead(s) V2
== END 2023-03-05 07:51 | disposition home or self-care (01) ==
LOC: DI.CARD 07:51
PROVIDERS: PCP Physician Assistant; Visit Provider Internal Medicine Cardiovascular Disease
DX: I31.9 Disease of pericardium, unspecified (principal); R07.9 Chest pain, unspecified
CPT/HCPCS: 93010

== ENCOUNTER → 2023-03-05 10:31 | Outpatient (BNVA) | payer MEDICARE, BC, SELFPAY | PROVIDERS: PCP Physician Assistant; Referring Provider Physician Assistant; Visit Provider Internal Medicine Cardiovascular Disease | DX: I44.7 Left bundle-branch block, unspecified (principal); I31.9 Disease of pericardium, unspecified | CPT/HCPCS: 93005; 99214 ==

== ENCOUNTER 2023-03-18 01:14 | Outpatient (CLI) | payer MEDICARE, BC, SELFPAY ==
--- NOTE | 2023-03-18 | DI.US_ITS ---
APPROVED REPORT EXAM: Comprehensive 2D, Doppler, and color-flow Echocardiogram Patient Location: Out-Patient [employer] Operator: Lizbeth Barclay RDCS (AE) Indications: Acute pericarditis, LBBB Other Information Study Quality: Adequate Conclusion Normal left ventricular wall thickness and chamber size. Ejection fraction is 57%. Wall motion is n ormal Normal right ventricular size and systolic function Both atria are normal in size There is no structural or hemodynamically significant valvular disease Estimated right ventricular systolic pressure is 24 mmHg Mildly dilated ascending aorta 3.6 cm There is no pericardial effusion Wall motion Left Ventricle Technically limited parasternal imaging. The overall left ventricular systolic function appears norm al. There is normal LV segmental wall motion. There is no ventricular septal defect visualized. LVEF is 57%. Right Ventricle The right ventricle is normal size. The right ventricular systolic function is normal. The RVSP is 23 .7 mmHg. Atria The left atrium size is normal. The right atrium size is normal. The interatrial septum is intact wit h no evidence for an atrial septal defect. Aortic Valve Aortic valve is probably trileaflet. There is no aortic valvular stenosis. No aortic regurgitation i s present. Mitral Valve The mitral valve is normal in structure. No evidence of mitral valve stenosis. Trace mitral regurgita tion. Tricuspid Valve The tricuspid valve is normal in structure. There is no tricuspid valve stenosis. Mild tricuspid regu rgitation. Pulmonic Valve Pulmonic valve is not well visualized. There is no pulmonic valvular stenosis. There is no pulmonic v alvular regurgitation. Great Vessels The aortic root is normal in size. The ascending aorta is mildly dilated. IVC is normal in size and c ollapses >50% with inspiration. Pericardium There is no pericardial effusion. 2D Dimensions Ao Root d 2.61 cm F: 2.7 - 3.3 LV Vol A2C d MOD 69.6 mL RA Area A4C 12.04 cm2 LV Vol A4C d MOD 78.0 mL RA Vol/ BSA A4C s A-L 16.1 mL/m2 LA vol/ BSA A2C s A-L 23.3 mL/m2 Ao Asc Diam d 3.60 cm F: 2.3 - 3.1 LA vol/ BSA A4C s A-L 16.6 mL/m2 LVEF (Dong's) 57.55 % F: 54 - 74 LA Vol/ BSA Biplane s A-L 19.8 mL/m2 LV Volume 60.07 mL F: 46 - 106 LA Area A4C s MOD 12.86 cm2 LV Volume Index 33.37 mL/m2 F: 29 - 61 LA Area A2C s MOD 15.13 cm2 LV Vol Biplane MOD 77.2 mL LV EF A4C MOD 55.2 % LV EF A2C MOD 58.5 % LV EF Biplane MOD 57.5 % SV 44.42 mL SV Index 24.72 mL/m2 M-Mode TAPSE 1.61 cm (M/F) >1.7 LV Diastology MV E' medial 0.072 (>0.07 m/s) E/A Ratio 0.6 LV E/e MED 7.90 (<14) MV E Vmax 0.57 (0.4-1.3 m/s) MV E' lateral 0.065 (>0.1 m/s) MV A Vmax 0.95 (0.4-1.3 m/s) LV E/e LAT 8.70 (<14) MV E/A Ratio 0.60 MV E/E' medial 7.94 MV E/E' lateral 8.74 Aortic Valve LVOT Area 3.08 cm2 AoV Area Vmax 2.38 cm2 LVOT Vmax 1.06 m/s AoV Area/ BSA (Vmax) 1.33 cm2/m2 LVOT Mean Onur. 0.67 m/s TOBY Mean Onur. 2.28 cm2 LVOT Peak Grad 4.5 mmHg TOBY Mean Onur. Index 1.27 cm2/m2 LVOT Mean Grad 2.2 mmHg LVOT VTI 0.220 m LVOT Diam s 1.95 cm AoV Vmax 1.37 m/s Velocity Ratio 0.77 AoV Mean Onur. 0.91 m/s AoV Peak Grad 7.5 mmHg LVOT SV 67.73 mL AoV Mean Grad 3.8 mmHg AoV VTI 0.242 m AoV Area VTI 2.80 cm2 AoV Area/ BSA (VTI) 1.56 cm/m2 Mitral Valve MV DT 261 (160-240 msec) MV PHT 76 msec MV Area PHT 2.91 cm2 MV VTI 0.289 m MV Area VTI 2.34 (4.0-6.0 cm2) Pulmonary Valve PV Vmax 0.94 (0.5-1.5 m/s) RVOT Peak Gr. 1.44 mmHg PV Peak Grad 3.5 mmHg RVOT Mean Gr. 0.70 mmHg PV Mean Grad 1.8 mmHg RVOT VTI 0.112 m PV VTI 0.175 m RVOT Vmax 0.60 m/s Tricuspid Valve TR Peak Grad 20.6 mmHg TR Vmax 2.27 m/s RA Pressure 3.00 mmHg RVSP (TR) 23.7 mmHg
== END 2023-03-18 01:34 ==
LOC: DI 01:14
PROVIDERS: PCP Physician Assistant; Visit Provider Physician Assistant
DX: I30.9 Acute pericarditis, unspecified (principal)
CPT/HCPCS: 93306

== ENCOUNTER → 2023-04-26 10:59 | Outpatient (BNVA) | payer MEDICARE, BC, SELFPAY | PROVIDERS: PCP Physician Assistant; Referring Provider Physician Assistant; Visit Provider Internal Medicine Cardiovascular Disease | DX: I31.9 Disease of pericardium, unspecified (principal) | CPT/HCPCS: 99213 ==

== ENCOUNTER 2023-07-12 16:48 | Outpatient (REF) | payer MEDICARE, BC, SELFPAY ==
[2023-07-12 18:39] LABS: C-Reactive Protein 0.12 mg/dL (0.0-0.3)
== END 2023-07-12 16:49 | disposition home or self-care (01) ==
LOC: LBN 16:48
PROVIDERS: PCP Physician Assistant; Visit Provider Physician Assistant
DX: I31.9 Disease of pericardium, unspecified (principal)
CPT/HCPCS: 86140

== ENCOUNTER → 2023-07-25 12:54 | Outpatient (BNVA) | payer MEDICARE, BC, SELFPAY | PROVIDERS: PCP Physician Assistant; Visit Provider Internal Medicine Cardiovascular Disease | DX: I44.7 Left bundle-branch block, unspecified (principal); Z86.79 Personal history of other diseases of the circulatory system | CPT/HCPCS: 99213 ==

== ENCOUNTER 2023-08-07 13:28 | Outpatient (REF) | payer MEDICARE, BC, SELFPAY ==
[2023-08-07 14:57] LABS: Abs Immature Grans 0.09 10^3/uL (0.0-0.06); Absolute Basophil Count 0.06 10^3/uL (0.0-0.2); Absolute Eosinophil Count 0.22 10^3/uL (0.0-0.7); Absolute Lymphocyte Count 3.52 10^3/uL (1.2-3.4); Absolute Monocyte Count 1.02 10^3/uL (0.1-0.8); Basophils % 0.4; Eosinophils % 1.5; HCT 27.5 % (36.0-46.0); HGB 9.1 g/dL (11.2-15.7); Immature Grans % 0.6; Lymphocytes % 24.3; MCH 30.4 pg (27.0-33.0); MCHC 33.1 % (32.0-36.0); MCV 92 fL (80-95); Neutrophils % 66.2; Platelet Count 619 10^3/uL (130-400); RBC 2.99 10^6/uL (3.93-5.22); RDW 13.2 % (11.7-14.6); RDW-SD 43.2 fL
[2023-08-07 15:18] LABS: Iron 15 ug/dL (50-170)
[2023-08-07 15:29] LABS: Ferritin 401 ng/mL (8-252)
== END 2023-08-07 13:29 | disposition home or self-care (01) ==
LOC: NCHCN 13:28
PROVIDERS: PCP Physician Assistant; Visit Provider Physician Assistant
DX: D62 Acute posthemorrhagic anemia (principal); Z47.89 Encounter for other orthopedic aftercare
CPT/HCPCS: 82728; 83540; 85025

== ENCOUNTER 2023-08-23 16:41 | Outpatient (REF) | payer MEDICARE, BC, SELFPAY ==
[2023-08-23 15:47] LABS: HCT 34.6 % (36.0-46.0); MCH 28.9 pg (27.0-33.0); MCHC 31.8 % (32.0-36.0); MCV 91 fL (80-95); MPV 8.4 fL (8.0-11.0); RDW 13.2 % (11.7-14.6); RDW-SD 43.8 fL; WBC 9.97 10^3/uL (4.4-10.8)
[2023-08-23 15:59] LABS: Anion Gap 9.9 mmol/L (3-11); BUN 13 mg/dL (7-18); CO2 26.1 mmol/L (21.0-32.0); CREATININE 0.9 mg/dL (0.55-1.02); Calcium 9.9 mg/dL (8.5-10.1); Chloride 99 mmol/L (98-107); Estimated GFR 68.35 (mL/min/1.73m2); Glucose 104 mg/dL (74-106); Potassium 4.7 mmol/L (3.5-5.1); Sodium 135 mmol/L (136-145)
[2023-08-23 16:48] LABS: Platelet Count 805 10^3/uL (130-400)
== END 2023-08-23 16:42 | disposition home or self-care (01) ==
LOC: NCHCN 16:41
PROVIDERS: PCP Physician Assistant; Visit Provider Physician Assistant
DX: I10 Essential (primary) hypertension (principal); D64.9 Anemia, unspecified
CPT/HCPCS: 80048; 85027

== ENCOUNTER 2023-09-18 13:07 | Outpatient (REF) | payer MEDICARE, BC, SELFPAY ==
[2023-09-18 16:11] LABS: Abs Immature Grans 0.03 10^3/uL (0.0-0.06); Absolute Basophil Count 0.06 10^3/uL (0.0-0.2); Absolute Eosinophil Count 0.22 10^3/uL (0.0-0.7); Absolute Lymphocyte Count 3.84 10^3/uL (1.2-3.4); Absolute Monocyte Count 0.57 10^3/uL (0.1-0.8); Absolute Neutrophil Count 4.97 10^3/uL (1.2-6.7); Basophils % 0.6; Eosinophils % 2.3; HCT 38.5 % (36.0-46.0); HGB 12.5 g/dL (11.2-15.7); Immature Grans % 0.3; Lymphocytes % 39.6; MCH 29.2 pg (27.0-33.0); MCHC 32.5 % (32.0-36.0); MCV 90 fL (80-95); MPV 9.1 fL (8.0-11.0); Monocytes % 5.9; Neutrophils % 51.3; Platelet Count 533 10^3/uL (130-400); RBC 4.28 10^6/uL (3.93-5.22); RDW 13.6 % (11.7-14.6); RDW-SD 44.6 fL; WBC 9.69 10^3/uL (4.4-10.8)
== END 2023-09-18 13:08 | disposition home or self-care (01) ==
LOC: NCHCN 13:07
PROVIDERS: PCP Physician Assistant; Visit Provider Physician Assistant
DX: D75.839 Thrombocytosis, unspecified (principal)
CPT/HCPCS: 85027; 85007

== ENCOUNTER 2023-12-12 16:03 | Outpatient (REF) | payer MEDICARE, BC, SELFPAY ==
[2023-12-12 19:54] LABS: HCT 41.6 % (36.0-46.0); HGB 13.3 g/dL (11.2-15.7); MCH 28.8 pg (27.0-33.0); MCV 90 fL (80-95); MPV 9.4 fL (8.0-11.0); Platelet Count 440 10^3/uL (130-400); RBC 4.62 10^6/uL (3.93-5.22); RDW 13.7 % (11.7-14.6); RDW-SD 45.6 fL; WBC 10.65 10^3/uL (4.4-10.8)
[2023-12-12 20:28] LABS: ALT 31 U/L (14-59); AST 13 U/L (15-37); Albumin 3.9 g/dL (3.4-5.0); Alkaline Phosphatase 153 U/L (46-116); BUN 17 mg/dL (7-18); Bilirubin, Total 0.3 mg/dL (0.2-1.0); Calcium 9.9 mg/dL (8.5-10.1); Chloride 102 mmol/L (98-107); Estimated GFR 60.23 (mL/min/1.73m2); Glucose 109 mg/dL (74-106); Potassium 4.3 mmol/L (3.5-5.1); Sodium 140 mmol/L (136-145); TSH 1.64 uIU/Ml (0.36-3.74); Total Protein 7.8 g/dL (6.4-8.2)
[2023-12-12 20:42] LABS: C-Reactive Protein 1.28 mg/dL (<or=0.5)
[2023-12-13 16:58] LABS: FREE T4 0.91 ng/dL (0.76-1.46)
== END 2023-12-12 16:04 | disposition home or self-care (01) ==
LOC: NCHCN 16:03
PROVIDERS: PCP Physician Assistant; Visit Provider Physician Assistant
DX: R53.83 Other fatigue (principal); R79.82 Elevated C-reactive protein (CRP); R79.89 Other specified abnormal findings of blood chemistry
CPT/HCPCS: 80053; 85027; 84439; 84443; 86140

== ENCOUNTER 2024-04-28 01:19 | Outpatient (CLI) | payer MEDICARE, BC, SELFPAY ==
--- NOTE | 2024-04-28 | DI.CT_ITS ---
Exam(s) CT CHEST WO EXAM: CT CHEST WO CLINICAL HISTORY: Solitary pulmonary nodule, R91.1. TECHNIQUE: Imaging protocol: Axial computed tomography images were obtained and coronal and sagittal reformatted images were created and reviewed. CONTRAST MATERIAL: Noncontrast COMPARISON: CT CT CHEST PE CTA from 07/20/[address] CHEST WO from 10/31/2022 FINDINGS: Pulmonary parenchyma: No consolidation. Stable 6 millimeter ground-glass nodule in the anterior righ t upper lobe. Stable 3 millimeter nodule anterior right lower lobe. Emphysema: None. Tracheobronchial tree: No mucous plugging. No bronchiectasis . Interstitial changes: None. Pleura: No effusion or pneumothorax. Heart: The heart is not dilated. The coronary arteries show mild calcifications. Mild mitral annul ar calcifications. Aorta: Thoracic aorta non-dilated. Mild atherosclerotic changes. Lymph nodes: No enlarged lymph nodes. Bones: Mild degenerative changes are seen. No evidence of compression fracture. Rods in lumbar s pine. Upper abdomen: Status post cholecystectomy. Soft tissues: Unremarkable. IMPRESSION: Stable pulmonary nodules since 2021. RADIATION DOSE DELIVERED: Total DLP Total DLP DATA REPOSITORY: All CT scans at this facility are submitted to the National Radiology Data Registry (NRDR) Dose Index Registry (DIR) with the [employer] ([employer]). RADIATION OPTIMIZATION: All CT scans at this facility use at least one of these dose optimization te chniques: automated exposure control; mA and/or kV adjustment per patient size (includes targeted exa ms where dose is matched to clinical indication); or iterative reconstruction.
== END 2024-04-28 01:39 ==
LOC: DI 01:19
PROVIDERS: PCP Physician Assistant; Visit Provider Physician Assistant
DX: R91.1 Solitary pulmonary nodule (principal)
CPT/HCPCS: 71250

== ENCOUNTER 2024-05-04 12:37 | Outpatient (REF) | payer MEDICARE, BC, SELFPAY ==
[2024-05-04 16:07] LABS: Anion Gap 10.1 mmol/L (3-11); BUN 14 mg/dL (7-18); CO2 24.9 mmol/L (21.0-32.0); CREATININE 1.1 mg/dL (0.55-1.02); Calcium 9.8 mg/dL (8.5-10.1); Chloride 102 mmol/L (98-107); Estimated GFR 53.39 (mL/min/1.73m2); Glucose 116 mg/dL (74-106); Potassium 4.4 mmol/L (3.5-5.1); Sodium 137 mmol/L (136-145)
== END 2024-05-04 12:38 | disposition home or self-care (01) ==
LOC: NCHCN 12:37
PROVIDERS: PCP Physician Assistant; Visit Provider Physician Assistant
DX: R60.0 Localized edema (principal)
CPT/HCPCS: 80048

== ENCOUNTER 2024-07-07 23:59 | Outpatient (REF) | payer MEDICARE, BC, SELFPAY ==
[2024-07-07 17:39] LABS: Anion Gap 13.7 mmol/L (3-11); BUN 17 mg/dL (7-18); CO2 24.3 mmol/L (21.0-32.0); CREATININE 1.3 mg/dL (0.55-1.02); Calcium 9.8 mg/dL (8.5-10.1); Chloride 102 mmol/L (98-107); Estimated GFR 43.69 (mL/min/1.73m2); Glucose 101 mg/dL (74-106); Sodium 140 mmol/L (136-145)
== END 2024-07-08 | disposition home or self-care (01) ==
LOC: NCHCN 23:59
PROVIDERS: PCP Physician Assistant; Visit Provider Physician Assistant
DX: I10 Essential (primary) hypertension (principal)
CPT/HCPCS: 80048

== ENCOUNTER → 2024-07-27 10:02 | Outpatient (BNVA) | payer MEDICARE, BC, SELFPAY | PROVIDERS: PCP Physician Assistant; Referring Provider Physician Assistant; Visit Provider Internal Medicine Cardiovascular Disease | DX: I44.7 Left bundle-branch block, unspecified (principal) | CPT/HCPCS: 99213 ==

== ENCOUNTER 2025-01-04 13:12 | Outpatient (REF) | payer MEDICARE, BC, SELFPAY ==
[2025-01-04 15:46] LABS: HCT 43.4 % (36.0-46.0); HGB 14.2 g/dL (11.2-15.7); MCH 30.5 pg (27.0-33.0); MCHC 32.7 % (32.0-36.0); MCV 93 fL (80-95); MPV 9.5 fL (8.0-11.0); Platelet Count 388 10^3/uL (130-400); RBC 4.66 10^6/uL (3.93-5.22); RDW 12.8 % (11.7-14.6); RDW-SD 43.8 fL
[2025-01-04 16:26] LABS: ALT 19 U/L (14-59); AST 11 U/L (15-37); Albumin 3.9 g/dL (3.4-5.0); Alkaline Phosphatase 107 U/L (46-116); Anion Gap 12.2 mmol/L (3-11); BUN 19 mg/dL (7-18); Bilirubin, Total 0.5 mg/dL (0.2-1.0); CO2 25.8 mmol/L (21.0-32.0); CREATININE 1.4 mg/dL (0.55-1.02); Calcium 9.9 mg/dL (8.5-10.1); Calculated LDL 82 mg/dL (<100); Chloride 104 mmol/L (98-107); Cholesterol 173 mg/dL (<200); Estimated GFR 39.97 (mL/min/1.73m2); Glucose 104 mg/dL (74-106); HDL Cholesterol 78 mg/dL (>or=50); Potassium 4.6 mmol/L (3.5-5.1); Sodium 142 mmol/L (136-145); Total Protein 7.4 g/dL (6.4-8.2); Triglyceride 68 mg/dL (<150)
== END 2025-01-04 13:13 | disposition home or self-care (01) ==
LOC: NCHCN 13:12
PROVIDERS: PCP Physician Assistant; Visit Provider Physician Assistant
DX: E78.5 Hyperlipidemia, unspecified (principal); I10 Essential (primary) hypertension
CPT/HCPCS: 80053; 80061; 85027

== ENCOUNTER 2025-05-24 12:01 | Emergency (ER) | payer MEDICARE, BC, SELFPAY ==
[2025-05-24 12:03] VITALS: BP 129/100; PULSE 90; RESP 18; TEMP 36.4
[2025-05-24] MEDS: oxyCODONE 5 mg/Acetaminophen 325 mg TAB 1 TAB PO (12:43)
--- NOTE | 2025-05-24 13:20 | DI.RAD_ITS ---
Exam(s) XR HAND LT COMPLETE EXAM: XR HAND LT COMPLETE CLINICAL HISTORY: pain left mcp after fall. TECHNIQUE: 2D digital imaging was performed of the left hand. Three views were obtained. AP, lateral and oblique views were obtained. COMPARISON: No exams were available for comparison FINDINGS: BONES: There is an acute fracture through the diaphysis of the proximal phalanx of the 5th finger. There is slight dorsal angulation of the fracture. There is a lucency through the waist of the scaphoid which may be artifactual. It is appreciated only on the PA view. Correlate with the patient's physical exam. If there is continued concern, a scaphoid view may be obtained for further evaluation. JOINTS: No dislocation present. SOFT TISSUE: Normal. IMPRESSION: Acute mildly angulated fracture through the diaphysis of the proximal phalanx of the 5th finger. DATA REPOSITORY: RADIATION DOSE DELIVERED:
[2025-05-24 15:49] VITALS: BP 151/84; PULSE 78; RESP 15; TEMP 36.6; O2SAT 98
--- NOTE | 2025-05-24 21:19 | ED.GENADUL_ITS ---
Discharge Plan Disposition Patient Disposition: Home Condition: Stable Discharge Details Clinical Impression: Finger fracture, left Primary Care Provider: Kedar Rankin ED Provider: Sara Barraza Home Meds and New Rx's Prescriptions: New oxycodone 5 mg capsule 5 mg PO BID PRNQty: 6 0RF Continued (DME) Aerochamber MV Spacer See Rx Instructions .Route Rx Instructions: As directed Multivitamin 50 Plus Tablet 1 tab PO DAILY furosemide 20 mg tablet 20 mg PO DAILY albuterol sulfate [ProAir HFA] 90 mcg/actuation HFA aerosol inhaler 2 puff inhalation Q6H PRN calcium carbonate-vitamin D3 [Calcium 600 with Vitamin D3] 600 mg-12.5 mcg (500 unit) capsule PO BID ropinirole 1 mg tablet 3 mg PO QHS spironolactone 25 mg tablet 50 mg PO DAILY Wegovy 1 mg/0.5 mL pen injector 1 mg subcut Q7D atorvastatin 20 mg tablet 20 mg PO DAILY Discharge Instructions Instructions: Finger Fracture ED Additional Instructions: take tylenol as needed for pain keep splint in place follow-up with orthopedics apply ice as needed return with worsening pain, strength or sensation changes, or should any new concerns arise Please follow-up with orthopedics tomorrow to schedule f/u Referrals: Kedar Rankin [Primary Care Provider, Medicine] Joby Mccray MD [ [facility] STAFF PHYSICIAN, Orthopaedic Surgical] Discharge Data Discharge Date/Time-TO BE ENTERED AT DEPARTURE: 05/24/25 15:54 HPI General Date/Time Provider Initiated Documentation: 05/24/25 12:17 . HPI Narrative: This 75-year-old female presents with report of trip and fall while walking her dog onto her left hand. She specifically denies any additional injuries and states her tetanus is up-to-date. The pain is predominantly in her left fifth digit. She denies any wrist pain or elbow injury. She denies history of coagulopathy. Related Data Home Medications ?Medication ?Instructions ?Recorded ?Confirmed albuterol sulfate 90 mcg/actuation 2 puff inhalation Q 6H PRN 03/03/21 05/24/25 aerosol inhaler (ProAir HFA) atorvastatin 20 mg tablet 20 mg PO DAILY 07/20/2205/10 calcium 600 mg (as cap PO BID 02/28/23 07/27/24 carbonate)-vitamin D3 12.5 mcg (500 unit) capsule (Calcium with Vit D3) inhalational spacing device 05/17/23 05/24/25 (Aerochamber MV spacer) glswtqxqvvdh-kataerhh-vbtckh 1 tab PO DAILY 05/17/23 0 05/24/25 tablet (Multivitamin 50 Plus tablet) furosemide 20 mg tablet 20 mg PO DAILY 07/27/2405/10 ropinirole 1 mg tablet 3 mg PO QHS 02/10/25 5 semaglutide (weight loss) 1 mg/0.5 1 mg subcut Q7D 01/0105/24/25 mL subcutaneous pen injector ([employer]) spironolactone 25 mg tablet 50 mg PO DAILY 02/10/25 oxycodone 5 mg capsule 5 mg PO BID PRN #6 caps 05/10 01/31 Previous Rx's ?Medication ?Instructions ?Recorded oxycodone 5 mg capsule 5 mg PO BID PRN #6 caps 05/10 01/31 Allergies Allergy/AdvReac Type Severity Reaction Status Date / Time environmental Allergy Headache Uncoded 05/24/25 12:07 General Stated Complaint: Orthopedic CALLIE: 4 Exam Narrative Exam Narrative: 75-year-old female fully alert and oriented no visible sign of head trauma, on musculoskeletal exam patient has a obvious area of swelling to her left fifth digit on the proximal aspect of her fifth phalanx she is neurovascularly intact there is no significant deformity visualized no wrist tenderness no elbow tenderness appreciated Course Vital Signs Vital signs: Vital Signs Temperature 36.4 C 05/24/25 12:03 Pulse 90 05/24/25 12:03 Respiratory Rate 18 05/24/25 12:03 Blood Pressure 129/100 H 05/24/25 12:03 Temperature 36.6 C 05/24/25 15:49 Temperature Source Tympanic 05/24/25 12:03 Pulse 78 05/24/25 15:49 Respiratory Rate 15 05/24/25 15:49 Blood Pressure 151/84 H 05/24/25 15:49 Pulse Oximetry 98 05/24/25 15:49 Pain Level 2 05/24/25 15:49 Medical Decision Making Results: Left hand x-ray with fracture noted to proximal phalanx with mild dorsal angulation per radiology interpretation my review Procedure: Patient was placed into an show aluminum foam splint, remains neurova scularly intact pre and post application Assessment and plan: Patient has obvious finger fracture, she will need orthopedic follow-up her range of motion is actually only subtly decreased on assessment, which patient largely attributes to discomfort related. She is tolerating the splint well she was given for oxycodone with risk of addiction reviewed. She is placed on the orthopedic referral list for follow-up and encouraged ice and elevate is much as possible. Return precautions reviewed and patient expressed understanding discharged home neurovascularly intact [facility] All Active Problems (Updated 05/24/25 @ 14:34 by SABRINA Bhakta) Finger fracture, left (Acute) Spinal stenosis of lumbar region (Acute) Pericarditis (Acute) Leukocytosis (Acute) Chest pain (Acute) Incidental pulmonary nodule (Acute) Sessile colonic polyp (Acute) Encounter for routine gynecological examination (Acute 10/28/14) Pap/hpv done recommend continuing yearly mammograms advised re colonoscopy recommendations and benefits Cystocele (Acute) Medical History Low back pain Pulmonary nodule Multiple nevi Asthma History of pericarditis Hyperlipidemia Restless leg syndrome Depression Hypertension Left bundle branch block Radiculopathy History of malignant neoplasm of breast 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) History of hypertension Allergic asthma Surgical History S/P coronary angiogram 10 years ago per patient History of cataract surgery History of colonoscopy (~10/2021) History of cholecystectomy S/P cervical spinal fusion Ligation of fallopian tube 1977 Tonsillectomy (~1960) Cholecystectomy 1979 secondary to benign tumor no stones . Biopsy of breast L breast benign 1994 Appendectomy (~1970) Family History Other Diabetes Heart disease Hyperlipidemia Personal history of malignant neoplasm Social History Smoking/Tobacco Use Status: Never Smoking risk assessment performed?: Yes Alcohol Intake: current Alcohol Intake frequency: a few times a week Alcohol type: wine Drug use: Never Substance use type: does not use Do you feel safe at home: Yes Do you feel safe in your relationship?: Yes
== END 2025-05-24 15:54 | disposition home or self-care (01) ==
PROVIDERS: Emergency Provider Physician Assistant; PCP Physician Assistant
DX: S62.647A Nondisplaced fracture of proximal phalanx of left little finger, initial encounter for closed fracture (principal); W18.39XA Other fall on same level, initial encounter; Y93.K1 Activity, walking an animal; Y92.89 Other specified places as the place of occurrence of the external cause
CPT/HCPCS: 99283; 73130

== ENCOUNTER → 2025-05-27 08:11 | Outpatient (BNVA) | payer MEDICARE, BC, SELFPAY | PROVIDERS: PCP Physician Assistant; Referring Provider Physician Assistant; Visit Provider Physical Therapy Assistant | DX: Z12.11 Encounter for screening for malignant neoplasm of colon (principal); I10 Essential (primary) hypertension; Z86.0101 Personal history of adenomatous and serrated colon polyps | CPT/HCPCS: S0285 ==

== ENCOUNTER 2025-06-01 01:01 | Outpatient (CLI) | payer MEDICARE, BC, SELFPAY ==
--- NOTE | 2025-06-01 07:20 | DI.US_ITS ---
Exam(s) US RENAL EXAM: US RENAL CLINICAL HISTORY: RENAL INSUFFICIENCY N28.9 DISORDER KIDNEY AND URETER MILD SLOWLY. TECHNIQUE: Escoto scale imaging and color doppler were used. COMPARISON: CT UPPER ABD WITH CONTRAST (P) from 06/11/2016 FINDINGS: Right kidney: 9.6cm Echogenicity: Normal Hydronephrosis: No. Mildly prominent renal pelvis unchanged in appearance from prior CT. Cyst or mass: No Nephrolithiasis: No. Left kidney: 5cm Echogenicity: Normal Hydronephrosis: No. Mildly prominent renal pelvis unchanged in appearance from prior CT. Cyst or mass: No Nephrolithiasis: No Bladder:Normal. Prevoid vol: 452 cc Postvoid vol:29 cc IMPRESSION: Negative renal ultrasound. DATA REPOSITORY:
== END 2025-06-01 01:21 ==
LOC: DI 01:01
PROVIDERS: PCP Physician Assistant; Visit Provider Physician Assistant
DX: N28.9 Disorder of kidney and ureter, unspecified (principal)
CPT/HCPCS: 76770

== ENCOUNTER 2025-06-04 11:37 | Outpatient (CLI) | payer MEDICARE, BC, SELFPAY ==
--- NOTE | 2025-06-04 08:15 | DI.RAD_ITS ---
Exam(s) XR WRIST LT COMP NAVICULAR EXAM: XR WRIST LT COMP NAVICULAR CLINICAL HISTORY: left finger fracture. TECHNIQUE: 2D digital imaging was performed. Three views. COMPARISON: CR XR HAND LT COMPLETE from 05/24/2025 FINDINGS: BONES: The fracture of the proximal phalanx of the little finger which is unchanged in alignment. No additional fractures are identified. The navicular is intact.. No bony destructive lesion is seen. JOINTS: The carpal bones are normally aligned. No significant degenerative changes. SOFT TISSUE: Normal. IMPRESSION: Unremarkable radiographs of the left wrist. Stable alignment of fracture of the proximal phalanx of the little finger. DATA REPOSITORY: RADIATION DOSE DELIVERED:
== END 2025-06-04 11:38 | disposition home or self-care (01) ==
LOC: DIORS 11:37
PROVIDERS: PCP Physician Assistant; Referring Provider Physician Assistant; Visit Provider Physician Assistant
DX: S62.607A Fracture of unspecified phalanx of left little finger, initial encounter for closed fracture (principal); M79.642 Pain in left hand; W01.0XXA Fall on same level from slipping, tripping and stumbling without subsequent striking against object, initial encounter; Y93.K1 Activity, walking an animal
CPT/HCPCS: 99213; 73110

== ENCOUNTER 2025-06-22 06:18 | Day surgery (SDC) | payer MEDICARE, BC, SELFPAY ==
--- NOTE | 2025-06-21 14:51 | W.PM.DSUDISC ---
Date of service: 06/22/25 Discharge Plan Disposition Patient Disposition: Home Condition: Good Discharge Details Reason For Visit: Screening colonoscopy Attending Provider: Jamar Griggs Primary Care Provider: Kedar Rankin Home Meds and New Rx's Prescriptions: Continued (DME) Aerochamber MV Spacer See Rx Instructions .Route Rx Instructions: As directed Multivitamin 50 Plus Tablet 1 tab PO DAILY furosemide 20 mg tablet 20 mg PO DAILY Zepbound 2.5 mg/0.5 mL pen injector 2.5 mg subcut QWEEK Rx Instructions: for 4 weeks albuterol sulfate [ProAir HFA] 90 mcg/actuation HFA aerosol inhaler 2 puff inhalation Q6H PRN calcium carbonate-vitamin D3 [Calcium 600 with Vitamin D3] 600 mg-12.5 mcg (500 unit) capsule 1 cap PO BID ropinirole 1 mg tablet 3 mg PO QHS spironolactone 25 mg tablet 50 mg PO DAILY atorvastatin 20 mg tablet 20 mg PO DAILY Discontinued bisacodyl [Dulcolax (bisacodyl)] 5 mg tablet,delayed release (DR/EC) 5 mg PO ONCE Qty: 4 0RF Rx Instructions: Take per colonoscopy instructions provided by ordering providers office polyethylene glycol 3350 17 gram/dose powder 17 g PO ONCE Qty: 238 0RF Rx Instructions: Take per colonoscopy instructions provided by ordering providers office Discharge Instructions Additional Instructions: Molly, it was good seeing you today, and hope you feel well after the procedure. Your prep was outstanding, and I could see everything fine. I did not see any signs of tumors, polyps, or anything else worrisome today. In light of the nature of the polyp that you had removed previously, I recommend a 5-year interval for your next screening colonoscopy. 1. If tolerated, consume a soft, low fiber diet for 1-2 days. [address] Do not drive, drink alcohol, operate machinery, make critical decisions, or do activities that require coordination or balance for 24 hours. 3. Because air was put into your colon during the procedure, expelling air from your rectum (passing gas or farting) is normal. 4. You may not have a bowel movement for 1-3 days because of the colonoscopy prep. This is normal. 5. Go directly to the emergency room if you notice any of the following: Develop chills (warm to touch), or if you have a thermometer and your temperature is above 101 Difficulty breathing or difficultly swallowing Persistent vomiting Severe abdominal pain, other than gas cramps Severe chest pain Black, tarry stools Any bleeding ? exceeding one tablespoon 6. Call your physician if the site where your intravenous was started becomes red, swollen, painful, and warm to touch. 7. Your physician has reviewed your pre-procedure medications. Please continue to take those medications as previously ordered. You will be given specific information/education regarding any changes to your medications before leaving. Stand Alone Forms: Anesthesia Discharge InstAvtar Yi (DSU) Activity:: Activity as Tolerated Diet:: As Tolerated Discharge Orders Discharge Orders: Discharge Order (Routine); Ordered 06/21/25 Ordered By: Jamar Griggs DS: Diagnosis Discharge Diagnosis (1) Encounter for screening colonoscopy: Status: Acute Asessment and Plan: Negative screening colonoscopy today; based on history, 5-year interval for next screening
--- NOTE | 2025-06-21 14:52 | W.COLOREPORT ---
Date of service: 06/22/25 Time of Service: 07:53 Colonoscopy Report Date of procedure: 06/22/25 Pre-op diagnosis general: Screening colonoscopy Post-op diagnosis procedure note: other (Negative screening colonoscopy) Procedure: Colonoscopy Surgeon: Jamar Griggs Anesthesia Type: General:No Airway Estimated blood loss (mL): 0 Pathology: none sent Complications: None Disposition: same day Indications: Radha is a 75-year-old woman with history of adenomatous polyps. She needs her next screening colonoscopy. Prep: Miralax/Dulcolax Procedure Start Time: 07:30 Procedure End Time: 07:44 Retraction Time: 7 Findings: Negative screening colonoscopy Procedure Description: After the induction of anesthesia, and with the patient in left lateral decubitus position, I began by performing an external anorectal exam.? Perineum and skin were normal, as was the anal verge.? Next, I performed a digital rectal exam.? I did not appreciate any abnormal findings.? Next, I advanced a colonoscope into the rectal vault.? I performed retroflexion.? This appeared normal.? Using insufflation, I then advanced the colonoscope beyond the rectal folds and into the sigmoid colon before advancing towards the cecum.? The quality of the prep was outstanding.? The scope was noted to be in the cecum by identification of the ileocecal valve and appendiceal orifice.? I then began withdrawing the colonoscope using repeated irrigation as necessary for full evaluation of the colonic mucosa. ?Once the scope was withdrawn to the level of the rectum, great care was taken to examine portions of the rectal folds.? I saw no signs of tumors, polyps, or any other worrisome pathology. Finally, the scope was withdrawn and the patient was brought to the same-day surgery recovery unit as the anesthetic wore off. ?The findings and instructions were shared with the patient prior to discharge. [place] Bowel Prep [place] Bowel Prep Right Colon: 3 Left Colon: 3 Transverse Colon: 3 Total Score: 9
[2025-06-22 06:29] VITALS: BP 131/88; PULSE 73; RESP 14; TEMP 36.3; O2SAT 98
[2025-06-22] MEDS: Lactated Ringers 1,000 ML 80 ML IV (06:47)
--- NOTE | 2025-06-22 06:52 | W.ANESPRE ---
General Info Date of Service Date Performed: 06/22/25 Height: 5 ft 2 in Weight: 69.8 kg Body Mass Index (BMI): 28.1 Surgical Procedure: Operation Date: 06/22/25 07:35 Proposed Procedure Side Surgeon luca Griggs MD Meds Allergies and Home Medications Allergies Allergy/AdvReac Type Severity Reaction Status Date / Time environmental Allergy Headache Uncoded 06/22/25 06:24 Home Medication ?Medication ?Instructions ?Recorded albuterol sulfate 90 mcg/actuation 2 puff inhalation Q6H PRN 03/03/21 aerosol inhaler (ProAir HFA) atorvastatin 20 mg tablet 20 mg PO DAILY 07/20/22 calcium 600 mg (as 1 cap PO BID 02/28/23 carbonate)-vitamin D3 12.5 mcg (500 unit) capsule (Calcium with Vit D3) inhalational spacing device 05/17/23 (Aerochamber MV spacer) [id number]-hdupxqdk-vbvdfc 1 tab PO DAILY 05/17/23 tablet (Multivitamin 50 Plus tablet) furosemide 20 mg tablet 20 mg PO DAILY 07/27/24 ropinirole 1 mg tablet 3 mg PO QHS 02/10/25 spironolactone 25 mg tablet 50 mg PO DAILY 02/10/25 tirzepatide (weight loss) 2.5 2.5 mg subcut QWEEK 05/27/25 mg/0.5 mL subcutaneous pen injector (Zepbound) Current Visit Medications: Current Medications Generic Name Dose Route Start Last Admin Trade Name Freq PRN Reason Stop Dose Admin Ringer's Solution 1,000 mls @ 80 mls/hr 06/22/25 06:00 06/22/25 06:47 IV 06/22/25 23:59 80 mls/hr INFUSION JOHN Administration IV Miscellaneous Supplies 1 each 06/22/25 06:00 Iv Access IV 06/22/25 23:59 DIRECTED JOHN Sodium Chloride 0 ml 06/22/25 06:00 Normal Saline Flush 10 Ml Syr IV 06/22/25 23:59 PRN PRN Sodium Chloride 0 ml 06/22/25 06:00 Normal Saline 10 Ml Vial IJ 06/22/25 23:59 DIRECTED PRN Sterile Water 0 ml 06/22/25 06:00 Water,Injection,Sterile 10 Ml Vial IJ 06/22/25 23:59 DIRECTED PRN PFSH Active Problems Active Problems: Problem Status Onset Code Encounter for screening colonoscopy Acute Z12.11 Tenderness of anatomical snuffbox Acute M79.643 Finger fracture, left Acute 05/24/25 S62.609A Spinal stenosis of lumbar region Acute M48.061 Pericarditis Acute I31.9 Hypokalemia Resolved E87.6 Leukocytosis Acute D72.829 Chest pain Acute R07.9 Incidental pulmonary nodule Acute R91.1 Sessile colonic polyp Acute K63.5 Encounter for routine gynecological examination Acute 10/28/14 Z01.419 Cystocele Acute Medical History Medical History Low back pain Pulmonary nodule Multiple nevi Asthma History of pericarditis Hyperlipidemia Restless leg syndrome Depression Hypertension Left bundle branch block Radiculopathy History of malignant neoplasm of breast 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) History of hypertension Allergic asthma Surgical History Surgical History S/P coronary angiogram 10 years ago per patient History of cataract surgery History of colonoscopy (~10/2021) History of cholecystectomy S/P cervical spinal fusion Ligation of fallopian tube 1977 Tonsillectomy (~1960) Cholecystectomy 1979 secondary to benign tumor no stones . Biopsy of breast L breast benign 1994 Appendectomy (~1970) Tobacco Smoking/Tobacco Use Status: Never Alcohol Alcohol Intake: current Alcohol intake frequency: a few times a week Alcohol type: wine Substance Use Substance use: Never Substance use type: does not use Vital Signs and Lab Results Vital Signs Most Recent Vital Signs in EMR: Most Recent Vital Signs Temp Pulse Resp BP Pulse Ox 36.3 C L 73 14 131/88 98 06/22/25 06:29 06/22/25 06:29 06/22/25 06:29 06/22/25 06:29 06/22/25 06:29 Imaging and Studies Imaging and Studies Study information below may be from another EMR and interpreted by another provider. Please see original notes in EMR for more complete details. EKG Summary: 03/05/23 HR:70 bpm ECG Measurements Heart Rate 70 AXIS AK 159 P 45 QRSd 138 QRS -27 QT 408 T142 QTc 441 Conclusion Sinus rhythm...normal P axis, V-rate 50- 99 Left bundle branch block...QRSd>120, broad/notched R Baseline wander in lead(s) V2 Stress Test Summary: 04/03/10: Negative Interpretation Date/Time: 10/04/2022 15:17:03 Stress ECG Conclusion 1. Electrocardiogram showed a left bundle branch block 2. Patient underwent pharmacologic stress using regadenoson 3. Electrocardiographic portion of the test was nondiagnostic due to LBBB 4. See MPI report Perez Treadmill Score is 8.6 which is Low risk. Stress Test Summary [id number]/88 [id number]/88 1 min post Lexiscan [id number]/82Short of breath, chest pain 4-5/10 3 min post Lexiscan [id number]/80Lightheaded, chest pain 4-5/10 6 min post Lexiscan [id number] pain 1-2/10 9 min post Lexiscan injectionChest pain resolved, 0/10 Pt was capable of doing a walking matthew-scan injection but when attempted the EKG picture was not clear, attempted adjusting leads while patient was walking at 1.3 mph but unfortunately could not get clear images. Treadmill was stopped, patient returned to the stretcher and a laying lexiscan exam was done. Patient tolerated well, was asymptomatic within 8 minutes of lexiscan injection. MPI Conclusion Myocardial perfusion is normal. There is no evidence of ischemia or prior infarction EF 62%, normal wall motion Radiologist Interpretation Radiologist agrees with Marble Cutter Operator's Interpretation. Radiologist Interpretation by: Bruce Granda MD Echocardiogram Summary: 03/18/23 Conclusion Normal left ventricular wall thickness and chamber size. Ejection fraction is 57%. Wall motion is normal Normal right ventricular size and systolic function Both atria are normal in size There is no structural or hemodynamically significant valvular disease Estimated right ventricular systolic pressure is 24 mmHg Mildly dilated ascending aorta 3.6 cm There is no pericardial effusion Anesthesia Assessment and Plan Anesthesia History Personal History: No History of Anesthesia Complications Family History: No Family History of Anesthesia Complications Exercise Tolerance Exercise Tolerance: Metabolic Equivalents>4 Pertinent Negatives Pertinent Negatives: No Symptoms of GERD, No Major Pulmonary Symptoms or Complaints and No History of CVA/TIA Cardiac & Pulmonary Exam Cardiac Exam: Normal S1/S2 Heart Sounds Pulmonary Exam: Clear Bilateral Breath Sounds Implantable Cardiac Device Does patient have a Pacemaker or an ICD?: No Airway Exam Known Difficult Airway: No Mallampati Class: 2 Mouth Opening: Narrow (< 3cm) Thyromental Distance: Greater than 3 cm Neck Range of Motion: Limited ROM (left residual upper extremity weakness) Neck Circumference: Normal Teeth Condition: Normal Dentition ASA Classification ASA Score: ASA 2 Emergency Case?: No NPO Status NPO Status: NPO Clears >2 hours, Solids >8 hours Anesthesia Plan Resuscitation Status: Full Code Anesthesia Technique: General Anesthesia Airway Planned: Natural Airway Monitors Used: Standard Monitors
[2025-06-22 07:48] VITALS: BP 126/73; PULSE 82; RESP 16; TEMP 36.8; O2SAT 97
--- NOTE | 2025-06-22 07:53 | W.ANESPOSTOP ---
Postoperative Evaluation Date, Time and Location Date Performed: 06/22/25 Time Performed: 07:53 Patient Location: Day Surgery Unit Vital Signs Most Recent Imported Vital Signs: Most Recent Vital Signs Temp Pulse Resp BP Pulse Ox 36.8 C 82 16 126/73 97 06/22/25 07:48 06/22/25 07:48 06/22/25 07:48 06/22/25 07:48 06/22/25 07:48 Pain Score Most Recent Pain Score: Most Recent Pain Score Pain Level 0 06/22/25 07:48 Assessment Mental Status: Awake (Alert & Oriented to Patient Baseline) Airway and Respiratory Function: Patent airway with normal (patient baseline) respiratory exam Cardiovascular Function: Hemodynamically Stable Hydration Status: Adequately Hydrated Nausea & Vomiting: No Nausea or Vomiting Pain: Pt. Denies Any Pain Peripheral Nerve Block: Patient did not receive a nerve block
[2025-06-22 08:08] VITALS: BP 113/73; PULSE 74; RESP 16; TEMP 36.9; O2SAT 100
[2025-06-22 08:18] VITALS: BMI 28.1
== END 2025-06-22 08:30 | disposition home or self-care (01) ==
LOC: SUR 06:19
PROVIDERS: PCP Physician Assistant; Visit Provider Surgery
PROC: 0DJD8ZZ Inspection of Lower Intestinal Tract, Via Natural or Artificial Opening Endoscopic (ICD-10-PCS; CPT 45378; principal; 2025-06-22 07:30)
DX: Z12.11 Encounter for screening for malignant neoplasm of colon (principal); Z86.0101 Personal history of adenomatous and serrated colon polyps
CPT/HCPCS: G0105; J2003; J2704

== ENCOUNTER 2025-06-25 10:53 | Outpatient (CLI) | payer MEDICARE, BC, SELFPAY ==
--- NOTE | 2025-06-25 09:45 | DI.RAD_ITS ---
Exam(s) XR FINGER LT LITTLE EXAM: XR FINGER LT LITTLE CLINICAL HISTORY: F/U LLF FX. TECHNIQUE: 2D digital imaging was performed. Three views. COMPARISON: None. FINDINGS: BONES: There is increased dorsal angulation at the previously noted fracture of the proximal phalanx. There is some callus formation around the fracture site. No bony destructive lesion is seen. JOINTS: No dislocation present. SOFT TISSUE: Normal. IMPRESSION: Worsening of dorsal angulation at the proximal phalangeal fracture. DATA REPOSITORY: RADIATION DOSE DELIVERED:
== END 2025-06-25 10:54 | disposition home or self-care (01) ==
LOC: DIORS 10:53
PROVIDERS: PCP Physician Assistant; Referring Provider Physician Assistant; Visit Provider Physician Assistant
DX: S62.647D Nondisplaced fracture of proximal phalanx of left little finger, subsequent encounter for fracture with routine healing (principal); X58.XXXD Exposure to other specified factors, subsequent encounter
CPT/HCPCS: 99213; 73140

== ENCOUNTER 2025-07-08 11:39 | Outpatient (CLI) | payer MEDICARE, BC, SELFPAY ==
--- NOTE | 2025-07-08 09:35 | DI.RAD_ITS ---
Exam(s) XR FINGER LT LITTLE EXAM: XR FINGER LT LITTLE CLINICAL HISTORY: eval L little figner fracture. TECHNIQUE: 2D digital imaging was performed. COMPARISON: CR XR FINGER LT LITTLE from 06/25/2025 FINDINGS: 3 views Again noted is the transverse fracture site in the proximal phalanx of the index finger at the junction of the proximal and mid thirds. Fracture line is still visible. There is some dorsal soft tissue calcification evident. There is dorsal angulation at the fracture site again noted but this appears similar when compared to 06/25/2025 IMPRESSION: Similar amount of dorsal angulation of the fracture site when compared to 06/25/2025. Fracture line still visible. DATA REPOSITORY: RADIATION DOSE DELIVERED:
== END 2025-07-08 11:40 | disposition home or self-care (01) ==
LOC: DIORS 11:39
PROVIDERS: PCP Physician Assistant; Referring Provider Physician Assistant; Visit Provider Student in an Organized Health Care Education/Training Program
DX: S62.647D Nondisplaced fracture of proximal phalanx of left little finger, subsequent encounter for fracture with routine healing (principal); X58.XXXD Exposure to other specified factors, subsequent encounter
CPT/HCPCS: 99213; 73140

== ENCOUNTER 2025-07-26 07:55 | Outpatient (CLI) | payer MEDICARE, BC, SELFPAY ==
--- NOTE | 2025-07-26 07:45 | RT.EKG_ITS ---
APPROVED REPORT Exam: Resting ECG Reason for Exam: pericarditis Patient Location: O HR:74 bpm ECG Measurements Heart Rate 74 AXIS LA 173 P 39 QRSd 139 QRS -34 QT 421 T 135 QTc 467 Conclusion Sinus rhythm...normal P axis, V-rate 50- 99 Left bundle branch block...QRSd>120, broad/notched R
== END 2025-07-26 07:56 | disposition home or self-care (01) ==
LOC: DI.CARD 07:56
PROVIDERS: PCP Physician Assistant; Visit Provider Registered Nurse
DX: R07.9 Chest pain, unspecified (principal); I31.9 Disease of pericardium, unspecified; I44.7 Left bundle-branch block, unspecified
CPT/HCPCS: 93010

== ENCOUNTER → 2025-07-26 09:41 | Outpatient (BNVA) | payer MEDICARE, BC, SELFPAY | PROVIDERS: PCP Physician Assistant; Referring Provider Physician Assistant; Visit Provider Registered Nurse | DX: R07.9 Chest pain, unspecified (principal); I44.7 Left bundle-branch block, unspecified; I10 Essential (primary) hypertension; I31.9 Disease of pericardium, unspecified | CPT/HCPCS: 99214; 93005 ==

== ENCOUNTER → 2025-08-02 13:28 | Outpatient (BNVA) | payer MEDICARE, BC, SELFPAY | PROVIDERS: PCP Physician Assistant; Referring Provider Physician Assistant; Visit Provider Student in an Organized Health Care Education/Training Program | DX: S62.617P Displaced fracture of proximal phalanx of left little finger, subsequent encounter for fracture with malunion (principal); X58.XXXD Exposure to other specified factors, subsequent encounter | CPT/HCPCS: 99214 ==

== ENCOUNTER 2025-08-04 10:14 | Day surgery (SDC) | payer MEDICARE, BC, SELFPAY ==
[2025-08-04] VITALS (19 sets, daily range): BP systolic 133–187; BP diastolic 70–130; PULSE 63–91; RESP 11–23; TEMP 36.1–36.5; O2SAT 92–99; BMI 27.8
[2025-08-04] MEDS: Lactated Ringers 1,000 ML 80 ML IV (11:09)
[2025-08-04] MEDS: Acetaminophen 500 MG TAB 1000 MG PO (11:09)
[2025-08-04] MEDS: Celecoxib 200 MG CAP 400 MG PO (11:09)
--- NOTE | 2025-08-04 11:40 | W.PM.DSUDISC ---
Date of service: 08/04/25 Discharge Plan Disposition Patient Disposition: Home Condition: Good Discharge Details Reason For Visit: [facility] RLF Attending Provider: Joby Mccray Primary Care Provider: Kedar Rankin Home Meds and New Rx's Prescriptions: New acetaminophen 500 mg tablet 1,000 mg PO TID Qty: 90 0RF ibuprofen 600 mg tablet 600 mg PO TID PRN (Reason: pain) Qty: 90 0RF oxycodone 5 mg tablet 5 mg PO Q8H MDD 15mg PRN (Reason: pain) Qty: 10 0RF Continued (DME) Aerochamber MV Spacer See Rx Instructions .Route Rx Instructions: As directed Multivitamin 50 Plus Tablet 1 tab PO DAILY furosemide 20 mg tablet 20 mg PO DAILY ropinirole 3 mg tablet 3 mg PO DAILY Mounjaro 7.5 mg/0.5 mL pen injector 7.5 mg subcut QWEEK Patient Comments: 07/26/25 per Pt. RH albuterol sulfate [ProAir HFA] 90 mcg/actuation HFA aerosol inhaler 2 puff inhalation Q6H PRN calcium carbonate-vitamin D3 [Calcium 600 with Vitamin D3] 600 mg-12.5 mcg (500 unit) capsule 1 cap PO BID spironolactone 25 mg tablet 50 mg PO DAILY atorvastatin 20 mg tablet 20 mg PO DAILY Discharge Instructions Additional Instructions: Hand Fracture Fixation Discharge Instructions Activity: You should keep the hand/wrist elevated as much as possible for the first few days. You may use the other fingers as tolerated but avoid trying to do too much too soon. You may perform light activities with the splint in place. Dressing/Cast: Your splint should stay in place at all times. Do NOT get it wet. You may loosen the NORMA wrap if you feel it is too tight and then rewrap more loosely. Medications: - You should take Tylenol and Ibuprofen for baseline pain control. - You have been prescribed a stronger pain medication, Oxycodone, for breakthrough pain. - You may apply ice over the wrist, just double bag so it doesn't get wet. Follow-up: 10-14 days Stand Alone Forms: Portal Information Referrals: Joby Mccray MD [ [facility] STAFF PHYSICIAN, Orthopaedic Surgical] Equipment/Supplies: Splint Activity:: Elevate Remove Dressings/Wound Care:: Do Not Remove Shower/Bathe:: Cover Diet:: As Tolerated Discharge Orders Discharge Orders: Discharge Order (Routine); Ordered 08/04/25 Ordered By: Boone Feng DS: Diagnosis Discharge Diagnosis (1) Fracture of proximal phalanx of little finger with malunion: Status: Acute
--- NOTE | 2025-08-04 11:57 | ANES.PREOP_ITS ---
General Info Date of Service Date Performed: 08/04/25 Height: 5 ft 2 in Weight: 68.9 kg Body Mass Index (BMI): 27.8 Surgical Procedure: Operation Date: 08/04/25 13:25 Proposed Procedure Side Surgeon p ORIF VS Closed Left Little Finger Proximal Phalanx W/Pinning Left Joby Mccray MD Meds Allergies and Home Medications Allergies Allergy/AdvReac Type Severity Reaction Status Date / Time environmental Allergy Headache Uncoded 08/03/25 11:37 Home Medication ?Medication ?Instructions ?Recorded albuterol sulfate 90 mcg/actuation 2 puff inhalation Q 6H PRN 03/03/21 aerosol inhaler (ProAir HFA) atorvastatin 20 mg tablet 20 mg PO DAILY 07/20/22 calcium 600 mg (as 1 cap PO BID 02/28/23 carbonate)-vitamin D3 12.5 mcg (500 unit) capsule (Calcium with Vit D3) inhalational spacing device 05/17/23 (Aerochamber MV spacer) [id number] 1 tab PO DAILY 05/17/23 tablet (Multivitamin 50 Plus tablet) furosemide 20 mg tablet 20 mg PO DAILY 07/27/24 spironolactone 25 mg tablet 50 mg PO DAILY 02/10/25 ropinirole 3 mg tablet 3 mg PO DAILY 07/26/25 tirzepatide 7.5 mg/0.5 mL 7.5 mg subcut QWEEK 07/26/25 subcutaneous pen injector (Adi) acetaminophen 500 mg tablet 1,000 mg (2 x 500 mg) PO T ID #90 08/04/25 tabs ibuprofen 600 mg tablet 600 mg PO TID PRN pain #90 t abs 08/04/25 oxycodone 5 mg tablet 5 mg PO Q8H PRN pain #10 tab s 08/04/25 Current Visit Medications: Current Medications Generic Name Dose Route Start Last Admin Trade Name Freq PRN Reason Stop Dose Admin Acetaminophen 1,000 mg 08/04/25 06:00 08/04/25 11:09 Acetaminophen 500 Mg Tab PO 08/04/25 23:59 1,000 mg PREOP JOHN Administration Acetaminophen 650 mg 08/04/25 11:38 Acetaminophen 325 Mg Tab PO 09/03/25 11:37 Q4H PRN PRN Celecoxib 400 mg 08/04/25 06:00 08/04/25 11:09 Celecoxib 200 Mg Cap PO 08/04/25 23:59 400 mg PREOP JOHN Administration Ringer's Solution 1,000 mls @ 80 mls/hr 08/04/25 06:00 08/04/25 11:09 IV 08/04/25 23:59 80 mls/hr INFUSION JOHN Administration Cefazolin Sodium/Dextrose 2 gm in 50 mls @ 100 mls/hr 08/04/25 06:00 Ancef Duplex IVPB 08/04/25 23:59 PREOP JOHN Oxycodone/Acetaminophen 1 tab 08/04/25 11:38 Oxycodone 5 Mg/Acetaminophen 325 Mg Tab PO 09/03/25 11:37 Q4H PRN PRN Pain Sodium Chloride 0 ml 08/04/25 06:00 Normal Saline Flush 10 Ml Syr IV 08/04/25 23:59 PRN PRN Sodium Chloride 0 ml 08/04/25 06:00 Normal Saline 10 Ml Vial IJ 08/04/25 23:59 DIRECTED PRN Sterile Water 0 ml 08/04/25 06:00 Water,Injection,Sterile 10 Ml Vial IJ 08/04/25 23:59 DIRECTED PRN PFSH Active Problems Active Problems: Problem Status Onset Code Fracture of proximal phalanx of little finger with malunion Acute S62.618P Finger fracture, left Acute 05/24/25 S62.609A Spinal stenosis of lumbar region Acute M48.061 Pericarditis Acute I31.9 Hypokalemia Resolved E87.6 Leukocytosis Acute D72.829 Incidental pulmonary nodule Acute R91.1 Chest pain Acute R07.9 Sessile colonic polyp Acute K63.5 Cystocele Acute Encounter for routine gynecological examination Acute 10/28/14 Z01.419 Medical History Medical History Low back pain Pulmonary nodule Multiple nevi Asthma History of pericarditis Per pt. states 3 years. Follows up with cardiology 07/26/25. Hyperlipidemia Restless leg syndrome Depression Hypertension Left bundle branch block Radiculopathy History of malignant neoplasm of breast remission 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) History of hypertension Allergic asthma Surgical History Surgical History S/P coronary angiogram 10-15 years ago per patient History of cataract surgery History of colonoscopy (~06/22/25) History of cholecystectomy S/P cervical spinal fusion Ligation of fallopian tube 1977 Tonsillectomy (~1960) Cholecystectomy 1979 secondary to benign tumor no stones . Biopsy of breast L breast benign 1994 Appendectomy (~1970) Tobacco Smoking/Tobacco Use Status: Never Passive smoking exposure: No Alcohol Alcohol Intake: current Alcohol intake frequency: a few times a week Alcohol type: wine Substance Use Substance use: Never Substance use type: does not use Vital Signs and Lab Results Vital Signs Most Recent Vital Signs in EMR: Most Recent Vital Signs Temp Pulse Resp BP Pulse Ox 36.1 C L 82 16 147/83 H 97 08/04/25 10:40 08/04/25 10:40 08/04/25 10:40 08/04/25 10:40 08/04/25 10:40 Imaging and Studies Imaging and Studies Study information below may be from another EMR and interpreted by another provider. Please see original notes in EMR for more complete details. EKG Summary: 03/05/23 HR:70 bpm ECG Measurements Heart Rate 70 AXIS SC 159 P 45 QRSd 138 QRS -27 QT 408 T142 QTc 441 Conclusion Sinus rhythm...normal P axis, V-rate 50- 99 Left bundle branch block...QRSd>120, broad/notched R Baseline wander in lead(s) V2 Stress Test Summary: 04/03/10: Negative Interpretation Date/Time: 10/04/2022 15:17:03 Stress ECG Conclusion 1. Electrocardiogram showed a left bundle branch block 2. Patient underwent pharmacologic stress using regadenoson 3. Electrocardiographic portion of the test was nondiagnostic due to LBBB 4. See MPI report Perez Treadmill Score is 8.6 which is Low risk. Stress Test Summary [id number] [id number]/88 Padhgjcz52320/88 1 min post Lexiscan [id number]/82Short of breath, chest pain 4-5/10 3 min post Lexiscan [id number]/80Lightheaded, chest pain 4-5/10 6 min post Lexiscan [id number]/82Chest pain 1-2/10 9 min post Lexiscan injectionChest pain resolved, 0/10 Pt was capable of doing a walking matthew-scan injection but when attempted the EKG picture was not clear, attempted adjusting leads while patient was walking at 1.3 mph but unfortunately could not get clear images. Treadmill was stopped, patient returned to the stretcher and a laying lexiscan exam was done. Patient tolerated well, was asymptomatic within 8 minutes of lexiscan injection. MPI Conclusion Myocardial perfusion is normal. There is no evidence of ischemia or prior infarction EF 62%, normal wall motion Radiologist Interpretation Radiologist agrees with Polishing Pad Mounter's Interpretation. Radiologist Interpretation by: Bruce Granda MD Echocardiogram Summary: 03/18/23 Conclusion Normal left ventricular wall thickness and chamber size. Ejection fraction is 57%. Wall motion is normal Normal right ventricular size and systolic function Both atria are normal in size There is no structural or hemodynamically significant valvular disease Estimated right ventricular systolic pressure is 24 mmHg Mildly dilated ascending aorta 3.6 cm There is no pericardial effusion Anesthesia Assessment and Plan Anesthesia History Personal History: No History of Anesthesia Complications Family History: No Family History of Anesthesia Complications Exercise Tolerance Exercise Tolerance: Metabolic Equivalents>4 Pertinent Negatives Pertinent Negatives: No Symptoms of GERD Cardiac & Pulmonary Exam Cardiac Exam: Normal S1/S2 Heart Sounds Pulmonary Exam: Clear Bilateral Breath Sounds Implantable Cardiac Device Does patient have a Pacemaker or an ICD?: No Airway Exam Known Difficult Airway: No Mallampati Class: 2 Mouth Opening: Narrow (< 3cm) Thyromental Distance: Greater than 3 cm Neck Range of Motion: Limited ROM (left residual upper extremity weakness) Neck Circumference: Normal Teeth Condition: Normal Dentition ASA Classification ASA Score: ASA 3 Emergency Case?: No NPO Status NPO Status: NPO Clears >2 hours, Solids >8 hours (Mounjaro ingection on 08/03) Anesthesia Plan Resuscitation Status: Full Code Anesthesia Technique: General Anesthesia Airway Planned: Endotracheal Tube Monitors Used: Standard Monitors and SedLine Preoperative Comments:: Talked with pt. regarding Mounjaro and most likely food residual in stomach with aspiration risk. Pt understands the need for RSI with GETA. Bonifacio Estrada CRNA
[2025-08-04] MEDS: ceFAZolin 2 GM/50 ML BAG IVPB (12:35)
[2025-08-04] MEDS: Bupivacaine 0.25% Pres-Free W/EPI 30 ML VIAL (13:30)
--- NOTE | 2025-08-04 13:56 | W.ANESPOSTOP ---
Postoperative Evaluation Date, Time and Location Date Performed: 08/04/25 Time Performed: 13:56 Patient Location: PACU Vital Signs Most Recent Imported Vital Signs: Most Recent Vital Signs Temp Pulse Resp BP Pulse Ox 36.5 C 79 11 L 137/95 H 96 08/04/25 13:30 08/04/25 13:50 08/04/25 13:50 08/04/25 13:41 08/04/25 13:50 Pain Score Most Recent Pain Score: Most Recent Pain Score Pain Level 1 08/04/25 13:50 Assessment Mental Status: Awake (Alert & Oriented to Patient Baseline) Airway and Respiratory Function: Patent airway with normal (patient baseline) respiratory exam Cardiovascular Function: Hemodynamically Stable Hydration Status: Adequately Hydrated Nausea & Vomiting: No Nausea or Vomiting Pain: Pt. Denies Any Pain Peripheral Nerve Block: Patient did not receive a nerve block
--- NOTE | 2025-08-04 14:17 | W.PM.OP ---
Operative Note Operative Note PRE-OP DIAGNOSIS: Left Little Finger Proximal Phalanx Fracture PROCEDURE: Closed reduction and percutaneous pinning of a left little finger proximal phalanx fracture SURGEON: Joby Mccray ANESTHESIA TYPE: General LMA/ETT Refer to Anesthesia Record ESTIMATED BLOOD LOSS: 0 TOURNIQUET TIME: 0 COMPLICATIONS: None Indications: Molly is a 75-year-old female who suffered a fracture of the proximal phalanx of her left little finger. This had some initial mild extension deformity which worsened over time. This is attempted be treated without surgery but her dysfunction and pain continued with a notable extension deformity of the proximal phalanx. Therefore, I recommended proceeding to the operating room for closed versus open reduction of the left little finger with pinning. Findings: There was an extension deformity of the left little finger proximal phalanx which was able to be manipulated in a closed fashion. With multiple attempts of manipulation the fracture was able to get the proximal phalanx nearly fully straight. This was then pinned in position with 2 antegrade K wires in a crossing pattern. Procedure Description: Molly was given a preoperative holding area. Her identity was confirmed the correct site was identified and marked. The consent was reviewed the patient and signed. History and physical was updated. She was then taken to the operating room, placed onto the operating room table with the left hand on a hand table. A general anesthetic was then administered without complication or difficulty. A timeout was performed for safe surgery. A closed reduction was then attempted with manipulation of the proximal phalanx but creating lever arm over the apex deformity of the proximal phalanx I was able to manipulate the fracture. There may have been some slight motion of the fracture even before manipulation. However, with repeated attempts I was able to reduce the apex volar deformity, extension deformity, though the proximal phalanx. Then, the left arm was prepped with ChloraPrep and draped in standard fashion. Prophylactic antibiotics were administered. I then administered a digital block utilizing 0.25% bupivacaine. Then, utilizing mini fluoroscopy I was able to see the reduction of the proximal phalanx. This was held in position and with the finger flexed at about 90 degrees at the MCP joint I then placed an antegrade K wire. This first K wire crossed appropriately at the fracture site and exited distal to the fracture. Second K wire placed on the opposite side of the base of the proximal phalanx I did tendency to exit from within the fracture. Therefore I went up and K wire size and then was able to complete the placement of the K wire. Fracture was then tested and noted to be stable with the 2 crossing K wires. K wires were penetrating through the far cortex by few millimeters. The K wire was then bent off the skin proximally and a Jurgan ball was placed. The hand was cleaned. The finger and hand was dressed with Xeroform, 4 x 4 gauze, Webril. A short ulnar based volar resting splint was applied with the ring and little fingers in intrinsic plus position. She tolerated procedure well and was transferred back to the PACU in a stable condition. She will remain in the splint that she follows up in clinic in 10 to 14 days. Date of Procedure: 08/04/25
== END 2025-08-04 15:10 | disposition home or self-care (01) ==
PROVIDERS: PCP Physician Assistant; Visit Provider Student in an Organized Health Care Education/Training Program
PROC: (CPT 26727; principal; 2025-08-04 13:15)
DX: S62.618A Displaced fracture of proximal phalanx of other finger, initial encounter for closed fracture (principal); I10 Essential (primary) hypertension; J45.909 Unspecified asthma, uncomplicated; G25.81 Restless legs syndrome; E78.5 Hyperlipidemia, unspecified; I44.7 Left bundle-branch block, unspecified; F32.A Depression, unspecified; M48.061 Spinal stenosis, lumbar region without neurogenic claudication; Z85.3 Personal history of malignant neoplasm of breast
CPT/HCPCS: 26727; J0690; J1100; J2003; J2405; J2704; J3010

== ENCOUNTER 2025-08-16 15:55 | Outpatient (CLI) | payer MEDICARE, BC, SELFPAY ==
--- NOTE | 2025-08-16 14:15 | DI.RAD_ITS ---
Exam(s) XR FINGER LT LITTLE EXAM: XR FINGER LT LITTLE CLINICAL HISTORY: F/U LLF FX. TECHNIQUE: 2D digital imaging was performed. Three views. COMPARISON: None. FINDINGS: BONES: 2 pins have been placed through the proximal phalanx of the little finger for fracture fixation since the previous exam. The previously noted angulation has been corrected. No bony destructive lesion is seen. JOINTS: No dislocation present. SOFT TISSUE: Normal swelling around the proximal phalanx IMPRESSION: Anatomic alignment of proximal phalangeal fracture with 2 fixation pins. DATA REPOSITORY: RADIATION DOSE DELIVERED:
== END 2025-08-16 15:56 | disposition home or self-care (01) ==
LOC: DIORS 15:55
PROVIDERS: PCP Physician Assistant; Referring Provider Physician Assistant; Visit Provider Student in an Organized Health Care Education/Training Program
DX: S62.618 Displaced fracture of proximal phalanx of other finger (principal); X58.XXXD Exposure to other specified factors, subsequent encounter
CPT/HCPCS: 99024; 73140